=== PATIENT | male | born 1960 | race African-American/Black ===

== ENCOUNTER 2017-06-06 06:26 | Emergency (ER) | payer MEDICARE ==
--- NOTE | 2017-06-06 08:24 | RAD ---
RIGHT HIP 2 VIEWS: Date: 06/06/17 PROVIDED CLINICAL HISTORY: Right hip pain status post fall. FINDINGS: There is no evidence for fracture or other acute osseous abnormality. If there is persistent clinical concern, conservative management and follow-up imaging are advised. IMPRESSION: As above. POS: [facility]
== END 2017-06-06 07:23 | disposition home or self-care (01) ==
LOC: ERS 06:26
DX: S70.01XA Contusion of right hip, initial encounter (principal); I12.0 Hypertensive chronic kidney disease with stage 5 chronic kidney disease or end stage renal disease; N18.6 End stage renal disease; Z99.2 Dependence on renal dialysis; Z79.82 Long term (current) use of aspirin; Z79.899 Other long term (current) drug therapy; W01.0XXA Fall on same level from slipping, tripping and stumbling without subsequent striking against object, initial encounter; Y92.009 Unspecified place in unspecified non-institutional (private) residence as the place of occurrence of the external cause

== ENCOUNTER 2017-08-30 12:56 | Emergency (ER) | payer MEDICARE, OTHER ==
--- NOTE | 2017-08-30 13:45 | RAD ---
FRONTAL RADIOGRAPH CHEST PORTABLE UPRIGHT: Date: 08-30-17 Comparison: 02-14-17 History: Productive cough since Wednesday. FINDINGS: There is no pneumothorax or pleural fluid and no focal consolidation or alveolar edema. Cardiac silho uette is enlarged, a stable finding. There is atherosclerotic calcification in the aortic arch. IMPRESSION: Stable appearance of the chest - no acute findings. POS: [facility]
== END 2017-08-30 15:00 | disposition home or self-care (01) ==
LOC: ERS 12:56
DX: J20.9 Acute bronchitis, unspecified (principal); I12.0 Hypertensive chronic kidney disease with stage 5 chronic kidney disease or end stage renal disease; N18.6 End stage renal disease; Z99.2 Dependence on renal dialysis; Z79.899 Other long term (current) drug therapy; Z79.82 Long term (current) use of aspirin
CPT/HCPCS: 71045

== ENCOUNTER 2017-10-03 09:04 | Emergency (ER) | payer MEDICARE ==
[2017-10-03 09:44] LABS: Hemoglobin 11.6 g/dL (14.0-18.0); Mean Corpuscular Hemoglobin 30.9 pg (27.0-31.0); Mean Corpuscular Volume 85.9 fL (78.0-98.0); Mean Platelet Volume 9.1 fL (7.4-10.4); Platelet Count 147 thou/uL (130-400); RBC Distribution Width 15.5 % (11.5-14.5); Red Blood Cell (RBC) Count 3.75 mill/uL (4.70-6.10); White Blood Cell (WBC) Count 5.1 thou/uL (4.8-10.8)
--- NOTE | 2017-10-03 09:44 | RAD ---
AP VIEW OF THE CHEST: INDICATION: Dyspnea. COMPARISON: Prior exam dated 08/30/17. FINDINGS: Stable prominent cardiomegaly. Pulmonary vasculature is mildly congested. The lungs are clear. No pleural effusion is evident. No acute osseous abnormality is evident. IMPRESSION: Cardiomegaly with pulmonary vascular congestion is similar to a comparison dated 08/30/17. POS: [facility]
[2017-10-03 10:03] LABS: ALT (SGPT) 9 U/L (8-55); AST (SGOT) 16 U/L (5-34); Albumin 4.2 g/dL (3.5-5.0); Alkaline Phosphatase 38 U/L (40-150); Anion Gap 20 mmol/L (10-20); BUN (Urea Nitrogen) 81 mg/dL (8.4-25.7); Bilirubin, Total 0.6 mg/dL (0.2-1.2); Calc. Creatinine Clearance 0 mL/min (70-130); Carbon Dioxide 28 mmol/L (22-29); Chloride 93 mmol/L (98-107); Estimated GFR-MDRD 5; Globulin 4.4 g/dL (2.4-3.5); Glucose 84 mg/dL (70-105); Potassium 5.8 mmol/L (3.5-5.1); Protein, Total 8.6 g/dL (6.0-8.3); Sodium 135 mmol/L (136-145)
[2017-10-03 10:07] LABS: CKMB 2.9 ng/mL (0-6.6); Troponin I 0.032 ng/mL (< 0.028)
[2017-10-03 10:09] LABS: #Basophils 0.1 thou/uL (0.0-0.2); #Eosinphils 0.6 thou/uL (0.0-0.7); #Lymphocytes 1.5 thou/uL (1.20-3.40); #Monocytes 0.5 thou/uL (0.11-0.59); #Neutrophils 2.2 thou/uL (1.40-6.50); Anisocytosis SLIGHT = 6-15 cells (100X) (0-5/hpf); Eosinophils 11 % (0-10); Lymphocytes 25 % (21-51); MDiff Complete? YES; Monocytes 9 % (0-10); Neutrophil 52 % (42-75); PLT Morphology Comment Appears Adequate
[2017-10-03] MEDS ORDERED: Furosemide 20 MG/2 ML VIAL ONE (13:06)
== END 2017-10-03 14:04 | disposition home or self-care (01) ==
LOC: ERS 09:04
DX: R06.02 Shortness of breath (principal); I12.0 Hypertensive chronic kidney disease with stage 5 chronic kidney disease or end stage renal disease; N18.6 End stage renal disease; Z99.2 Dependence on renal dialysis; Z79.899 Other long term (current) drug therapy; Z79.82 Long term (current) use of aspirin
CPT/HCPCS: 71045; 80053; 82553; 83880; 84484; 85025; 93005; 96374; J1940

== ENCOUNTER 2017-12-26 13:46 | Emergency (ER) | payer MEDICARE ==
[2017-12-26 15:10] LABS: #Basophils 0.1 thou/uL (0.0-0.2); #Eosinphils 0.9 thou/uL (0.0-0.7); #Lymphocytes 1.6 thou/uL (1.20-3.40); #Monocytes 0.9 thou/uL (0.11-0.59); #Neutrophils 3.3 thou/uL (1.40-6.50); %Basophils 0.9 % (0.0-1.0); %Eosinophils 12.9 % (0.0-10.0); %Lymphocytes 23.5 % (21.0-51.0); %Monocytes 13.9 % (0.0-10.0); %Neutrophils 48.9 % (42.0-75.0); Mean Corpuscular HGB CONC 34.2 g/dL (32.0-36.0); Mean Corpuscular Hemoglobin 30.3 pg (27.0-31.0); Mean Corpuscular Volume 88.5 fL (78.0-98.0); Platelet Count 164 thou/uL (130-400); RBC Distribution Width 16.4 % (11.5-14.5); White Blood Cell (WBC) Count 6.8 thou/uL (4.8-10.8)
[2017-12-26 15:28] LABS: ALT (SGPT) 9 U/L (8-55); AST (SGOT) 10 U/L (5-34); Alkaline Phosphatase 37 U/L (40-150); Anion Gap 19 mmol/L (10-20); BUN (Urea Nitrogen) 59 mg/dL (8.4-25.7); Bilirubin, Total 0.4 mg/dL (0.2-1.2); Calc. Creatinine Clearance 0 mL/min (70-130); Carbon Dioxide 28 mmol/L (22-29); Chloride 95 mmol/L (98-107); Estimated GFR-MDRD 6; Globulin 4.2 g/dL (2.4-3.5); Glucose 91 mg/dL (70-105); Protein, Total 8.2 g/dL (6.0-8.3); Sodium 137 mmol/L (136-145)
[2017-12-26] MEDS ORDERED: Furosemide 40 MG TAB ONE (16:00)
[2017-12-26] MEDS ORDERED: Isosorbide Dinitrate 20 MG TAB PO SCH (16:15)
== END 2017-12-26 16:20 | disposition home or self-care (01) ==
LOC: ERS 13:46
DX: I12.0 Hypertensive chronic kidney disease with stage 5 chronic kidney disease or end stage renal disease (principal); N18.6 End stage renal disease; Z99.2 Dependence on renal dialysis
CPT/HCPCS: 36415; 80053; 83880; 85025; 99284

== ENCOUNTER 2018-04-04 02:35 | Observation (INO) | payer MEDICARE ==
[2018-04-04] MEDS ORDERED: Furosemide 100 MG/10 ML VIAL ONE (02:49)
[2018-04-04] MEDS ORDERED: hydrALAZINE 20 MG/ML VIAL ONE ×2 (02:49→02:50)
[2018-04-04 03:01] LABS: #Basophils 0.1 thou/uL (0.0-0.2); #Eosinphils 0.6 thou/uL (0.0-0.7); #Lymphocytes 1.6 thou/uL (1.20-3.40); #Monocytes 0.8 thou/uL (0.11-0.59); #Neutrophils 2.6 thou/uL (1.40-6.50); %Basophils 2.1 % (0.0-1.0); %Eosinophils 10.5 % (0.0-10.0); %Lymphocytes 27.9 % (21.0-51.0); %Monocytes 14.4 % (0.0-10.0); %Neutrophils 45.1 % (42.0-75.0); Hemoglobin 13.2 g/dL (14.0-18.0); Mean Corpuscular HGB CONC 34.5 g/dL (32.0-36.0); Mean Corpuscular Hemoglobin 29.7 pg (27.0-31.0); Mean Platelet Volume 10.2 fL (7.4-10.4); Platelet Count 146 thou/uL (130-400); RBC Distribution Width 15.5 % (11.5-14.5); Red Blood Cell (RBC) Count 4.43 mill/uL (4.70-6.10); White Blood Cell (WBC) Count 5.7 thou/uL (4.8-10.8)
[2018-04-04 03:24] LABS: ALT (SGPT) 11 U/L (8-55); AST (SGOT) 10 U/L (5-34); Albumin 4.6 g/dL (3.5-5.0); Alkaline Phosphatase 37 U/L (40-150); Anion Gap 24 mmol/L (10-20); BUN (Urea Nitrogen) 74 mg/dL (8.4-25.7); Bilirubin, Total 0.5 mg/dL (0.2-1.2); Calc. Creatinine Clearance 0 mL/min (70-130); Calcium 11.2 mg/dL (7.8-10.44); Carbon Dioxide 26 mmol/L (22-29); Chloride 91 mmol/L (98-107); Estimated GFR-MDRD 5; Globulin 4.7 g/dL (2.4-3.5); Glucose 127 mg/dL (70-105); Potassium 5.1 mmol/L (3.5-5.1); Protein, Total 9.3 g/dL (6.0-8.3); Sodium 136 mmol/L (136-145)
[2018-04-04] MEDS ORDERED: Ondansetron PF 4 MG/2 ML Vial ONE (05:30)
[2018-04-04] MEDS ORDERED: Morphine 4 MG/ML VIAL ONE (05:30)
[2018-04-04] MEDS ORDERED: Acetaminophen 500 MG TAB ONE (05:39)
--- NOTE | 2018-04-04 08:19 | RAD ---
PORTABLE CHEST ONE VIEW: Date: 04-04-18 Time: 2:07 a.m. History: Chest pain. FINDINGS/IMPRESSION: Comparison is made with exam of 10-03-17. The heart is size is enlarged. There is patchy consolidation in the lower lung zones, right greater t hurley left. No pneumothoraces or large effusions are seen. POS: [facility]
[2018-04-04] MEDS ORDERED: Ondansetron PF 4 MG/2 ML Vial IVP PRN (09:07)
[2018-04-04] MEDS ORDERED: Acetaminophen 325 MG TAB PO PRN (09:07)
[2018-04-04] MEDS ORDERED: Ondansetron ODT 4 MG TAB PO PRN (09:07)
--- NOTE | 2018-04-04 09:14 | CON ---
DATE OF CONSULTATION: HISTORY OF PRESENT ILLNESS: Mr. Fitzpatrick is a 57-year-old black male with known history of ESRD from hypertensive nephropathy and admitted for congestive heart failure. Chest x-ray shows increased lung markings. We are now consulted for his maintenance hemodialysis and emergent dialysis. I am currently at the bedside, supervising his dialysis. We are attempting to remove 5 L of fluid with this patient. He was also noted to incidentally have an elevated blood pressure. MEDICATIONS: Include the following; 1. Clonidine 0.3 mg t.i.d. 2. Nitroglycerin 0.4 mg sublingual p.r.n. 3. Minoxidil 2.5 mg q.p.m. 4. Imdur ER 30 mg p.o. b.i.d. 5. Tivicay 50 mg at bedtime. 6. Coreg 3.125 mg p.o. b.i.d. 7. Aspirin 325 mg once a day. 8. Amlodipine 10 mg daily. 9. Epzicom 600 mg q.p.m. PAST MEDICAL HISTORY: 1. ESRD from hypertensive nephropathy. 2. Longstanding hypertension. 3. HIV. 4. Status post CHF, status post C difficile colitis, status post Pneumocystis carinii pneumonia. PAST SURGICAL HISTORY: Status post cardiac cath, status post cuffed hemodialysis catheter placement, and status post AV fistula placement. SOCIAL HISTORY: The patient lives in [place] with several children. . No alcohol use. Smoked for several years, half a pack a day, currently minimal smoking. Status post multiple blood transfusion. 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 Education, high school. FAMILY HISTORY: No family history of ESRD. ALLERGIES: DAIRY PRODUCTS, SULFA. TRAUMA: None. IMMUNIZATION: Up-to-date. HOSPITALIZATIONS: Please see past medical history. PHYSICAL EXAMINATION: VITAL SIGNS: Blood pressure is noted at 190/70, heart rate 70. GENERAL: Awake, comfortable, not in overt distress. SKIN: Adequate turgor. HEENT: He has pinkish conjunctivae. Anicteric sclerae. NECK: No neck mass. No carotid bruits. No JVD. CHEST: No deformities. LUNGS: Bibasilar crackles. HEART: Normal sinus rhythm. No murmurs. No gallops. No rubs. ABDOMEN: Globular, soft, nontender. No masses. EXTREMITIES: No edema. No deformities. NEUROLOGICAL: Moving all extremities. No tremors. No asterixis. No ataxia. Oriented to 3 spheres. LABORATORY DATA: Laboratories of April 04, 2018; white count 5.7, hemoglobin 13.2. Sodium 136, potassium 5.1, chloride 91, carbon dioxide 26, BUN 74, creatinine 13.1, glucose 127, calcium 11.2, AST 10, and ALT 11. BNP is 482. Troponin I 0.170. IMAGING DATA: Chest x-ray, increased lung markings. ASSESSMENT AND PLAN: 1. Congestive heart failure - emergent hemodialysis. Attempting maximal fluid removal with dialysis today. 2. End-stage renal disease. We will continue Wednesday, Wednesday, and Wednesday dialysis. Attempting 5 L of fluid removal with dialysis due to the congestive heart failure. 3. Hypertension. Resume back BP medications. 4. Human immunodeficiency virus. Continue anti-retroviral therapy. Overall agree with current management. Job ID: [id number]
[2018-04-04 10:17] LABS: Troponin I 0.244 ng/mL (< 0.028)
[2018-04-04] MEDS ORDERED: Nitroglycerin 0.4 MG TAB (25 Tab Bottle) SL PRN (10:47)
--- NOTE | 2018-04-04 12:29 | HP ---
PRIMARY CARE PHYSICIAN: Pratima Rodriguez MD PRIMARY HOUSEMAN: Jose Alfredo Littlejohn MD CHIEF COMPLAINT: Shortness of breath and fluid overload. HISTORY OF PRESENT ILLNESS: Mr. Fitzpatrick is a pleasant 57-year-old male with past medical history of end-stage renal disease on dialysis, hypertension, HIV positive currently undergoing antiviral treatment with Dr. Cho, coronary artery disease, and chronic CHF, who had presented to [facility] with some complaints of shortness of breath. He states his regular dialysis days are Wednesday, Wednesday, and Wednesday, he had denied any missed dialysis days. He states after the last several weeks, he has noticed more heartburn lately, Dr. Mclaughlin had started him on omeprazole about 4 days ago. He had denied any chest pain; however, did develop some symptoms of shortness of breath and upper extremity edema over the last 2 to 3 days. He states he had his normal 1 on Wednesday, but his symptoms continued to worsen over the weekend. He had denied any fever or chills. Denied any abdominal pain or change in stool. He had complained of some mild nausea this morning; however, this had since resolved. He is currently undergoing dialysis under Dr. Mclaughlin's care. He states he is currently feeling better. His initial workup in the Emergency Department included a chest x-ray, which reveals enlarged heart size and patchy consolidation in the lower lung zones with right greater than left. However, no large effusions or pneumothorax noted. The patient's blood pressure was also noted to be elevated at 180/90, he had no further complaints of chest pain or palpitations. Lab work showed a BUN of 74 and creatinine of 13.15 with estimated GFR of 5. Troponin was also elevated at 0.094, which titrated up to 0.244, he has a history of chronic elevation of troponins. BNP was also elevated at 482.1. Based of the patient's symptoms and his clinical findings, it was determined that he would be admitted under observation for further workup of his symptoms and for continued dialysis. REVIEW OF SYSTEMS: All other systems reviewed are negative unless mentioned in the HPI. PAST MEDICAL HISTORY: Significant for end-stage renal disease on hemodialysis, hypertension, HIV, hyperlipidemia, chronic anemia, coronary artery disease, and chronic congestive heart failure. PAST SURGICAL HISTORY: AV fistula in the right upper extremity. SOCIAL HISTORY: He denies any alcohol, tobacco, or illicit drug use. FAMILY HISTORY: Significant for coronary artery disease and hypertension. ALLERGIES: SULFA. CURRENT HOME MEDICATIONS: 1. Clonidine 0.3 mg t.i.d. 2. Nitroglycerin 0.4 mg sublingual p.r.n. chest pain. 3. Minoxidil 2.5 mg at bedtime. 4. Imdur ER 30 mg p.o. b.i.d. 5. Tivicay 50 mg p.o. at bedtime. 6. Carvedilol 3.125 mg p.o. b.i.d. 7. Aspirin 325 mg once daily. 8. Amlodipine 10 mg oral daily. 9. Epzicom 600 mg q.p.m. PHYSICAL EXAMINATION: VITAL SIGNS: BP 188/90, pulse 90, respirations 22, and temperature 97.8 degrees Fahrenheit. GENERAL: Awake, alert, and oriented x3, in no acute distress noted. HEENT: Pupils are equal, round, and reactive to light. Extraocular muscles intact. Sclerae anicteric. Oropharynx is clear without any erythema or exudates. Uvula is midline. NECK: No adenopathy. No bruit. Nontender. Trachea midline. LUNGS: Basilar rales bilaterally with coarse breath sounds. CARDIOVASCULAR: Positive S1 and S2. Regular rate and rhythm. A 2/6 murmur systolic. ABDOMEN: Obese, soft, nontender, and nondistended. Bowel sounds present. EXTREMITIES: A 1 to 2+ edema noted. Moves all extremities equal. Strength 5+ bilaterally. Fistula noted in right upper extremity. NEUROLOGIC: Cranial nerves 2 through 12 intact. No focal deficits noted. Speech intact. LABORATORY DATA: WBC 5.7, RBC 4.43, hemoglobin 13.2, and platelet 146. Sodium 136, potassium 5.1, carbon dioxide 26, anion gap 24, BUN 74, creatinine 13.15, estimated GFR 5, glucose 127, AST 10, ALT 11, and alkaline phosphatase 37. CK-MB 3.0; troponin 0.094, 0.170, and 0.244; and BNP 482.1. DIAGNOSTIC IMAGING: Chest x-ray showed enlarged heart size, patchy consolidation in lower lung zones, right greater than left. No pneumothoraces or large effusions seen. ASSESSMENT AND PLAN: 1. Acute on chronic congestive heart failure, continue on the patient's home medications, continue with dialysis, obtain echocardiogram to monitor for cardiac status. 2. End-stage renal disease, Dr. Mclaughlin is consulted and continue on dialysis. 3. Elevated troponin, he has chronic elevation of his troponins, this could be likely secondary to his end-stage renal disease and also his chronic heart failure. We will monitor the patient clinically, he remains asymptomatic. Obtain echocardiogram to assess cardiac status. We will also consider consultation for Cardiology Services. 4. Hypertension. Continue on home regimen and add IV hydralazine p.r.n. elevated blood pressure greater than 170. 5. History of human immunodeficiency virus. Continue on home regimen of antiviral, the patient is to follow up with Dr. Cho as outpatient. 6. History of coronary artery disease. Continue on home regimen. 7. Deep vein thrombosis and gastrointestinal prophylaxis. 8. Code status. Full code. DISPOSITION: Pending workup and clinical findings. Job ID: [id number]
[2018-04-04 13:05] VITALS: BMI 27.4
[2018-04-04] MEDS: cloNIDine 0.3 MG TAB PO SCH ×2 (15:28→21:39)
[2018-04-04 15:54] LABS: Anion Gap 17 mmol/L (10-20); BUN (Urea Nitrogen) 29 mg/dL (8.4-25.7); Calc. Creatinine Clearance 13 mL/min (70-130); Carbon Dioxide 30 mmol/L (22-29); Chloride 96 mmol/L (98-107); Estimated GFR-MDRD 9; Glucose 96 mg/dL (70-105); Potassium 4.3 mmol/L (3.5-5.1); Sodium 139 mmol/L (136-145)
--- NOTE | 2018-04-04 16:46 | CON ---
DATE OF CONSULTATION: 04/04/2018 CARDIOLOGY CONSULTATION REASON FOR CONSULTATION: Shortness of breath. HISTORY OF PRESENT ILLNESS: Mr. Fitzpatrick is a pleasant 57-year-old gentleman, who comes to the hospital for shortness of breath. He is on end-stage renal disease and he states he might have drank too much fluids over the weekend more than usual as well as eaten out with a lot more salt more than usual. He did not miss any of his dialysis, but because of the excess fluid, he had to come in for shortness of breath. He has already been dialyzed once and is feeling much better. PAST MEDICAL HISTORY: 1. End-stage renal disease. 2. Hypertension. 3. HIV. 4. Hyperlipidemia. 5. Chronic anemia. 6. Coronary artery disease. 7. Chronic congestive heart failure. PAST SURGICAL HISTORY: 1. Left heart catheterization showing just a moderate lesion on the RCA with a normal FFR. This was back in 2014, so about 2 years ago. 2. History of LV dysfunction, nonischemic, EF at 40% to 45%. 3. AV fistula of right upper extremity. SOCIAL HISTORY: No alcohol, tobacco, or drugs. FAMILY HISTORY: Coronary artery disease and hypertension. ALLERGIES: SULFA. OUTPATIENT MEDICATIONS: 1. Clonidine 0.3 mg t.i.d. 2. Sublingual nitroglycerin p.r.n. 3. Minoxidil. 4. Imdur 30 mg b.i.d. 5. Tivicay 50 mg at bedtime. 6. Carvedilol 3.125 b.i.d. 7. Aspirin 325 a day. 8. Amlodipine 10 mg a day. 9. Epzicom 600 mg q.p.m. REVIEW OF SYSTEMS: A 12-point review of systems was done and was found to be negative unless stated in the history of present illness. PHYSICAL EXAMINATION: VITAL SIGNS: Temperature 98.2, pulse 99, respiratory rate 20, saturation 92% on room air, and blood pressure 160/71. GENERAL: Awake, alert, and oriented x3. No distress. HEENT: Normocephalic and atraumatic. NECK: Supple. LUNGS: Mild crackles at bases. CARDIOVASCULAR: S1, S2. No S3 or S4. No murmurs. ABDOMEN: Soft. Positive bowel sounds. EXTREMITIES: A 1+ edema. SKIN: Warm and dry. LABORATORY DATA: Laboratory work was reviewed. CBC and chemistries were reviewed. His glucose is 127 and calcium is 11.2. Troponin is 0.09, 0.17, and 0.24, consistent with his history of end-stage renal disease. BNP was 481. ASSESSMENT: 1. Nonischemic cardiomyopathy. 2. Acute on chronic systolic heart failure. 3. Volume overload, likely from dietary indiscretions. 4. End-stage renal disease. 5. Moderate coronary artery disease with nonischemic cardiomyopathy. PLAN: 1. Agree with continued hemodialysis to try to dry him up a little bit more. He is still having crackles in the bases already. He feels much better already. 2. Continue blood pressure control. 3. Continue heart failure medications. 4. We will repeat echocardiogram. 5. We will follow. Job ID: [id number]
[2018-04-04] MEDS ORDERED: Non-Formulary Item 1 EACH (Dolutegravir Sodium [Tivicay] 50 MG) PO SCH (21:00)
[2018-04-04] MEDS ORDERED: ABACAVIR SULFATE PO SCH (21:00)
[2018-04-04] MEDS ORDERED: LAMIVUDINE PO SCH (21:00)
[2018-04-04] MEDS ORDERED: Minoxidil 10 MG TAB PO SCH (21:00)
[2018-04-04 21:15] LABS: Phosphorus 5.3 mg/dL (2.3-4.7)
[2018-04-04] MEDS: Carvedilol 3.125 MG TAB PO SCH (21:39)
[2018-04-04] MEDS: Minoxidil 2.5 MG TAB PO SCH (21:39)
[2018-04-05 05:06] LABS: Anion Gap 18 mmol/L (10-20); BUN (Urea Nitrogen) 45 mg/dL (8.4-25.7); Calc. Creatinine Clearance 10 mL/min (70-130); Calcium 9.3 mg/dL (7.8-10.44); Carbon Dioxide 27 mmol/L (22-29); Chloride 98 mmol/L (98-107); Estimated GFR-MDRD 6; Glucose 125 mg/dL (70-105); Potassium 5.3 mmol/L (3.5-5.1); Sodium 138 mmol/L (136-145)
[2018-04-05 05:43] LABS: Band 1 % (5-11); Eosinophils 15 % (0-10); Hemoglobin 11.9 g/dL (14.0-18.0); Lymphocytes 32 % (21-51); MDiff Complete? YES; Mean Corpuscular HGB CONC 34.2 g/dL (32.0-36.0); Mean Corpuscular Hemoglobin 29.5 pg (27.0-31.0); Mean Corpuscular Volume 86.4 fL (78.0-98.0); Monocytes 12 % (0-10); Neutrophil 40 % (42-75); Platelet Count 127 thou/uL (130-400); Platelet Morphology Comment Appears Decreased; RBC Distribution Width 15.5 % (11.5-14.5); Red Blood Cell (RBC) Count 4.02 mill/uL (4.70-6.10); Target Cells SLIGHT = 2-5 cells (100X) (0-1/hpf); White Blood Cell (WBC) Count 4.1 thou/uL (4.8-10.8)
[2018-04-05] MEDS ORDERED: Amlodipine 5 MG TAB PO SCH (09:00)
[2018-04-05] MEDS: cloNIDine 0.3 MG TAB PO SCH ×3 (09:02→21:58)
[2018-04-05] MEDS: Aspirin 325 MG TAB PO SCH (09:02)
[2018-04-05] MEDS: Amlodipine 10 MG TAB PO SCH (09:03)
[2018-04-05] MEDS: Carvedilol 3.125 MG TAB PO SCH ×2 (09:03→21:57)
--- NOTE | 2018-04-05 14:11 | PDOC.PN ---
- Subjective Encounter Start Date: 04/05/18 Encounter Start Time: 14:08 Patient lying in bed, he reports some improvement today. He tolerated dialysis yesterday without complications. He denies chest pain or shortness of breath. Cr back up to 10 today. He has some dizziness this morning but has since resolved. - Objective Resuscitation Status - Order Detail: 04/04/18 09:07 Resuscitation Status Routine Co-Sign Provider: Resuscitation Status: FULL: Full Resuscitation MAR Reviewed: Yes Vital Signs & Weight: Vital Signs (12 hours) Temp Pulse Resp BP BP Pulse Ox 04/05/18 11:28 98.0 F 76 20 129/59 L 96 04/05/18 09:03 77 04/05/18 09:02 131/65 04/05/18 07:08 97.8 F 77 20 127/60 96 04/05/18 03:34 98.6 F 87 16 122/58 L 96 Weight Weight 191 lb 8 oz I&O: 04/04/18 04/05/18 04/06/18 06:59 06:59 06:59 Intake Total 720 Output Total 4500 Balance -3780 Result Diagrams: 04/05/18 04:22 04/05/18 04:25 Radiology Reviewed by me: Yes EKG Reviewed by me: Yes Phys Exam - Physical Examination Constitutional: NAD HEENT: PERRLA, moist MMs, oral pharynx no lesions Neck: no nodes, no JVD, supple Respiratory: no wheezing, no rales, no rhonchi Cardiovascular: RRR, no significant murmur, no rub Gastrointestinal: soft, non-tender, no distention, positive bowel sounds Musculoskeletal: no edema, pulses present fistula in place with +bruit and thrill noted. Neurological: non-focal, normal sensation, moves all 4 limbs Lymphatic: no nodes Psychiatric: normal affect, A&O x 3 Skin: no rash, normal turgor, cap refill <2 seconds Dx/Plan (1) Abnormal cardiac enzyme level Code(s): R74.8 - ABNORMAL LEVELS OF OTHER SERUM ENZYMES Status: Acute (2) Dyslipidemia Code(s): E78.5 - HYPERLIPIDEMIA, UNSPECIFIED Status: Chronic (3) ESRD (end stage renal disease) on dialysis Code(s): N18.6 - END STAGE RENAL DISEASE; Z99.2 - DEPENDENCE ON RENAL DIALYSIS Status: Chronic Comment: on HD (4) HIV (human immunodeficiency virus infection) Status: Chronic (5) Hypertension Code(s): I10 - ESSENTIAL (PRIMARY) HYPERTENSION Status: Chronic - Plan cont current plan of care * Continue home medications * Cardiology and nephrology services following * Plan for dialysis tomorrow and possible discharge after * Will monitor patient for further dizziness, currently asymptomatic * Recheck BMP in am
--- NOTE | 2018-04-05 16:25 | PDOC.EVN ---
Event Note - Event Note Event Note: with Frandy Funez, agree with management
[2018-04-05] MEDS ORDERED: FERRIC CITRATE PO SCH (17:00)
--- NOTE | 2018-04-05 18:12 | PDOC.CTH ---
Cardiology Progress Note - Subjective No new issues. Will get dialyzed later today. - Objective Vital Signs Temp Pulse Resp BP BP Pulse Ox 04/05/18 16:26 131/65 04/05/18 15:38 97.7 F 82 16 144/67 H 97 04/05/18 11:28 98.0 F 76 20 129/59 L 96 04/05/18 09:03 77 04/05/18 09:02 131/65 04/05/18 07:08 97.8 F 77 20 127/60 96 Weight 191 lb 8 oz 04/04/18 04/05/18 04/06/18 06:59 06:59 06:59 Intake Total 720 Output Total 4500 Balance -3780 - Physical Examination General/Neuro: alert & oriented x3, NAD Neck: no JVD present Lungs: CTA, unlabored respirations Heart: RRR Abdomen: NT/ND Extremities: + edema B (1+) - Telemetry Telemetry Rhythm: NSR - Labs Result Diagrams: 04/05/18 04:22 04/05/18 04:25 Troponin/CKMB CK-MB (CK-2) 3.0 ng/mL (0-6.6) 04/04/18 02:53 Troponin I 0.244 ng/mL (< 0.028) H 04/04/18 09:05 - Assessment/Plan 1. Acute on chronic systolic heart failure 2. Non ischemic CM EF at 40-45% 3. ESRD 4. Dietary indiscretions PLAN: - HD tomorrow - May discharge home after next dialysis. - Follow up in the office in 2 months.
[2018-04-05] MEDS: DOLUTEGRAVIR 50 MG PO SCH (21:56)
[2018-04-05] MEDS: Minoxidil 2.5 MG TAB PO SCH (21:57)
[2018-04-06] MEDS: DOLUTEGRAVIR 50 MG PO SCH (01:38)
[2018-04-06] MEDS: cloNIDine 0.3 MG TAB PO SCH ×2 (08:55→13:24)
[2018-04-06] MEDS: Carvedilol 3.125 MG TAB PO SCH (08:55)
--- NOTE | 2018-04-06 08:55 | PRG ---
DATE OF SERVICE: 04/06/2018 RENAL MEDICINE. SUBJECTIVE: Mr. Fitzpatrick is a 57-year-old black male with ESRD, who was admitted for shortness of breath. He was found to be in volume overload. He received dialysis last Wednesday. I am currently dialyzing him at the bedside. Supervising dialysis was maxing out fluid removal. No other complaints. No chest pain or shortness of breath. OBJECTIVE: VITAL SIGNS: Blood pressure is noted at 144/68, heart rate 73, respiratory rate 16, temperature 97.4, pulse ox 95%. GENERAL: Awake, alert, comfortable, not in distress. SKIN: Adequate turgor. HEENT: He has a pinkish conjunctivae. Anicteric sclerae. No neck mass. No carotid bruits. No JVD. CHEST: No deformities. LUNGS: Clear breath sounds. No wheezing. No crackles. HEART: Normal sinus rhythm. No murmur. No gallops. No rubs. ABDOMEN: Globular, soft, nontender. EXTREMITIES: No edema. No deformities. MEDICATIONS: Medications of April 06, 2018, was reviewed. LABORATORY DATA: Laboratories of April 05, 2018: Sodium 138, potassium 5.3, chloride 98, carbon dioxide 27, BUN 45, creatinine 10.1, glucose 125, calcium 9.3. White count 4.1, hemoglobin 11.9. ASSESSMENT AND PLAN: 1. End-stage renal disease, stable. Continuing Wednesday, Wednesday, Wednesday dialysis, maxing out fluid removal as tolerated. 2. Congestive heart failure, clinically improved. As previously mentioned, maxing out fluid removal with dialysis. 3. Agree with current management. Job ID: [id number]
[2018-04-06] MEDS ORDERED: Amlodipine 10 MG TAB PO SCH (09:00)
[2018-04-06] MEDS: Aspirin 325 MG TAB PO SCH (13:21)
[2018-04-06] MEDS: Amlodipine 10 MG TAB PO SCH (13:21)
[2018-04-06 13:39] VITALS: TEMP 98.2
[2018-04-06 20:12] VITALS: BP 131/65
== END 2018-04-06 15:24 | disposition home or self-care (01) ==
LOC: ERS 02:35 → ERHOLD 03:40 → 2SW 12:41
PROVIDERS: ADMIT Hospitalist; ATTEND Hospitalist
DX: E87.70 Fluid overload, unspecified (principal); I13.2 Hypertensive heart and chronic kidney disease with heart failure and with stage 5 chronic kidney disease, or end stage renal disease; N18.6 End stage renal disease; I50.23 Acute on chronic systolic (congestive) heart failure; Z99.2 Dependence on renal dialysis; I42.0 Dilated cardiomyopathy; I25.10 Atherosclerotic heart disease of native coronary artery without angina pectoris; E78.5 Hyperlipidemia, unspecified; D64.9 Anemia, unspecified; F17.210 Nicotine dependence, cigarettes, uncomplicated; Z21 Asymptomatic human immunodeficiency virus [HIV] infection status; E66.9 Obesity, unspecified; Z68.26 Body mass index [BMI] 26.0-26.9, adult; Z88.2 Allergy status to sulfonamides; Z91.018 Allergy to other foods; Z79.82 Long term (current) use of aspirin; Z79.899 Other long term (current) drug therapy; Z98.890 Other specified postprocedural states
CPT/HCPCS: 71045; 80048 ×2; 80053; 82553; 83880; 84100; 84484 ×2; 85025 ×2; 93306; 96374; 96375; 97139 ×2; 99285; G0378 ×4; 36415; J0360; J1940; J2270; J2405

== ENCOUNTER 2018-04-18 18:12 | Emergency (ER) | payer MEDICARE ==
--- NOTE | 2018-04-18 20:12 | RAD ---
CHEST TWO VIEWS: 04/18/2018 HISTORY: Cough. COMPARISON: 12/03/2015 TECHNIQUE: PA and lateral views of the chest obtained. FINDINGS: Two views of the chest demonstrate, again, cardiomegaly noted. Mild pulmonary vascular congestion is seen. Areas of air space opacity in the right lung base appears to be less prominent than on the pr evious comparison examination. It is certainly less prominent than on the previous comparison exam f rom 04/04/2018. IMPRESSION: 1. Cardiomegaly. 2. Decreased opacity in the right lower lobe. POS: [facility]
== END 2018-04-18 20:50 | disposition home or self-care (01) ==
LOC: ERS 18:12
DX: J18.1 Lobar pneumonia, unspecified organism (principal); I12.0 Hypertensive chronic kidney disease with stage 5 chronic kidney disease or end stage renal disease; N18.6 End stage renal disease; B20 Human immunodeficiency virus [HIV] disease
CPT/HCPCS: 71046; 87804; 94640; J7620

== ENCOUNTER 2018-04-24 20:41 | Inpatient (IN) | payer MEDICARE ==
[2018-04-24] MEDS ORDERED: Ondansetron ODT 8 MG TAB ONE (21:39)
[2018-04-24 21:43] LABS: #Basophils 0.1 thou/uL (0.0-0.2); #Eosinphils 0.4 thou/uL (0.0-0.7); #Lymphocytes 1.9 thou/uL (1.20-3.40); #Monocytes 0.5 thou/uL (0.11-0.59); %Basophils 1.6 % (0.0-1.0); %Eosinophils 7.6 % (0.0-10.0); %Lymphocytes 38.5 % (21.0-51.0); %Monocytes 10.1 % (0.0-10.0); %Neutrophils 42.2 % (42.0-75.0); Hemoglobin 11.2 g/dL (14.0-18.0); Mean Corpuscular Hemoglobin 29.8 pg (27.0-31.0); Mean Corpuscular Volume 84.9 fL (78.0-98.0); Platelet Count 164 thou/uL (130-400); RBC Distribution Width 14.7 % (11.5-14.5); Red Blood Cell (RBC) Count 3.75 mill/uL (4.70-6.10); White Blood Cell (WBC) Count 4.8 thou/uL (4.8-10.8)
[2018-04-24 22:04] LABS: ALT (SGPT) 10 U/L (8-55); AST (SGOT) 16 U/L (5-34); Albumin 4.1 g/dL (3.5-5.0); Alkaline Phosphatase 40 U/L (40-150); Anion Gap 19 mmol/L (10-20); BUN (Urea Nitrogen) 64 mg/dL (8.4-25.7); Bilirubin, Total 0.5 mg/dL (0.2-1.2); Calc. Creatinine Clearance 0 mL/min (70-130); Calcium 10.4 mg/dL (7.8-10.44); Carbon Dioxide 29 mmol/L (22-29); Chloride 91 mmol/L (98-107); Estimated GFR-MDRD 5; Glucose 92 mg/dL (70-105); Potassium 3.9 mmol/L (3.5-5.1); Protein, Total 8.1 g/dL (6.0-8.3); Sodium 135 mmol/L (136-145)
[2018-04-24] MEDS ORDERED: Aspirin Chewable 81 MG TAB ONE (22:27)
[2018-04-24] MEDS ORDERED: Enoxaparin Sodium 60 MG/0.6 ML SYRINGE ONE (22:27)
[2018-04-24] MEDS ORDERED: Nitroglycerin 2% Ointment 1 INCH/1 GM Packet ONE (22:27)
[2018-04-24] MEDS ORDERED: Enoxaparin Sodium 30 MG/0.3 ML SYRINGE ONE (22:27)
[2018-04-24 22:28] LABS: CKMB 3.3 ng/mL (0-6.6)
[2018-04-24] MEDS ORDERED: Metoprolol Tartrate 5 MG/5 ML VIAL ONE (23:06)
--- NOTE | 2018-04-24 23:29 | RAD ---
CHEST ONE VIEW: History: Dyspnea. Comparison: 04-18-18 FINDINGS: Lungs are clear. Heart size is enlarged. No pneumothorax. No acute osseous abnormality. IMPRESSION: Interval resolution right lower lobe airspace opacity. POS: [facility]
[2018-04-25 00:27] LABS: Critical Call Chem Troponin I RESULT DECREASING; Troponin I 0.453 ng/mL (< 0.028)
[2018-04-25 01:24] LABS: Critical Call Chem Troponin I RESULT DECREASING
[2018-04-25 01:42] LABS: CKMB 2.7 ng/mL (0-6.6)
--- NOTE | 2018-04-25 03:27 | HP ---
CHIEF COMPLAINT: Nausea and vomiting for last 2 weeks. HISTORY OF PRESENT ILLNESS: He is a 57-year-old male with a history of hypertension, ESRD on dialysis, and HIV on antiretroviral medication. He presented to the ER with a history of nausea and vomiting for last 3 weeks. He said whenever he eats something, he started vomiting after the food intake. He denies any diarrhea, any chest pain, or any belly pain. He has been on dialysis for so many years. Because of this symptom, he does come to ER. When he came to ER, his vital signs; pulse 99, blood pressure 181/86, temperature 98.1, and respiratory rate 18. In the ER, he started to have elevated troponin with nausea and vomiting, plan to admit him in the hospital for observation. PAST MEDICAL HISTORY: History of hypertension, dialysis, and HIV. MEDICATIONS: Medicine takes at home; 1. Clonidine 0.3 mg t.i.d. 2. Nitroglycerine sublingual. 3. Minoxidil 2.5 b.i.d. 4. Coreg 3.125 b.i.d. 5. Aspirin. 6. Amlodipine. 7. Antiretroviral medications. PERSONAL HISTORY: Denies any smoking, alcohol use, or drug use. FAMILY HISTORY: Noncontributory. REVIEW OF SYSTEMS: CONSTITUTIONAL: Negative for chills and fever. EYES: Negative for photophobia and eye pain. ENT: Negative for rhinorrhea, ear, nose, or throat pain. CARDIOVASCULAR: No chest pain. No short of breath. No palpitations. RESPIRATORY: No cough. No wheezing. No short of breath. GASTROINTESTINAL: No abdominal pain. No constipation. No hematemesis. No melena. GENITOURINARY: He does have nausea and vomiting and food intolerance. MUSCULOSKELETAL: No pain. SKIN: No rash. NEUROLOGICAL: No focal deficit. PHYSICAL EXAMINATION: GENERAL: When I examined him, middle-aged man lying in the bed, not in distress. HEENT: Head is atraumatic and normocephalic. Pupils are round and reactive. Extraocular muscles are intact. Ear, nose and throat, normal. Tongue mucosa moist. NECK: Supple. No JVD. No thyromegaly. CHEST: Normal vesicular breathing. No added sounds. No use of accessory muscle. CVS: S1 and S2 audible. No S3 or S4. Systolic murmur 2/6 in the left sternal border. ABDOMEN: Soft. Bowel sounds are audible. No tenderness in epigastric noted. No distension. No rigidity. No guarding. No tenderness. BACK: Normal. On inspection, normal range of motion. EXTREMITIES: Upper extremities, he has right upper extremity fistula, no edema. NEUROLOGIC: Alert x3. No focal deficits. SKIN: Dry. No rash. LABORATORY DATA: Lab shows WBC 4.8, platelets 164. Sodium 135, potassium 3.9, chloride 91, carbon dioxide 29, anion gap 19, BUN 34, creatinine 13.68. AST 16, ALT 11. Troponin 0.472. Albumin 4.1, globulin 4.0. Lipase 143. DIAGNOSTIC STUDIES: EKG, normal sinus rhythm, nonspecific ST changes, prolonged QT 472 milliseconds. ASSESSMENT AND PLAN: 1. Nausea and vomiting. 2. End-stage renal disease, on dialysis. 3. Human immunodeficiency virus. 4. Elevated troponin. PLAN: Plan to admit in the hospital for observation. Serial troponin. Aspirin , rule out [place]. Serial EKG. For nausea and vomiting with end-stage renal disease, continue IV Protonix 40 mg twice daily, and Nephrology consult for possible dialysis by the morning. 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 HIV, continue antiretroviral medications. Full code. DVT prophylaxis with heparin. Job ID: [id number] [facility]
[2018-04-25] MEDS: HYDROcodone/Acetaminophen 5/325 mg Tablet PO PRN (04:03)
[2018-04-25 05:41] LABS: Hemoglobin 10.9 g/dL (14.0-18.0); Hypochromia SLIGHT = 6-15 cells (100X) (0-5/hpf); Lymphocytes 30 % (21-51); MDiff Complete? YES; Mean Corpuscular HGB CONC 35.2 g/dL (32.0-36.0); Mean Corpuscular Hemoglobin 29.7 pg (27.0-31.0); Mean Corpuscular Volume 84.5 fL (78.0-98.0); Mean Platelet Volume 9.1 fL (7.4-10.4); Monocytes 2 % (0-10); Neutrophil 68 % (42-75); Platelet Count 161 thou/uL (130-400); Platelet Morphology Comment Appears Adequate; RBC Distribution Width 14.6 % (11.5-14.5); Red Blood Cell (RBC) Count 3.65 mill/uL (4.70-6.10); White Blood Cell (WBC) Count 6.1 thou/uL (4.8-10.8)
[2018-04-25 05:45] LABS: Anion Gap 18 mmol/L (10-20); BUN (Urea Nitrogen) 67 mg/dL (8.4-25.7); Calc. Creatinine Clearance 7 mL/min (70-130); Calcium 9.8 mg/dL (7.8-10.44); Carbon Dioxide 26 mmol/L (22-29); Chloride 93 mmol/L (98-107); Estimated GFR-MDRD 4; Glucose 79 mg/dL (70-105); Potassium 3.8 mmol/L (3.5-5.1); Sodium 133 mmol/L (136-145)
[2018-04-25] MEDS: Famotidine/PF 20 mg/2ml Vial SLOW IVP SCH (08:26)
[2018-04-25] MEDS: Heparin 5,000 UNITS/ML VIAL SC SCH ×3 (08:26→20:01)
[2018-04-25] MEDS ORDERED: PROVENTIL INHALER 6.7 G (200 INHALATIONS) INH PRN (10:04)
--- NOTE | 2018-04-25 10:21 | CON ---
DATE OF CONSULTATION: HISTORY OF PRESENT ILLNESS: Mr. Fitzpatrick is a 57-year-old black male with known history of ESRD - on maintenance hemodialysis, HIV, and hypertension, admitted for persistent nausea and vomiting. He also had a labile blood pressure on admission. We are being consulted for his maintenance hemodialysis. The patient is currently undergoing his regular hemodialysis. I am at the bedside supervising his dialysis. REVIEW OF SYSTEMS: Positive for cough with whitish phlegm, occasional nausea and vomiting. No chest pain or shortness of breath. No syncopal episode. No productive cough. No fever or chills. No headache. No diplopia. No gross hematuria. No dysuria. No urinary frequency. Appetite and energy level are fair. No hematochezia. No melena. No hematemesis. MEDICATIONS: 1. Clonidine 0.3 mg p.o. t.i.d. 2. Minoxidil 2.5 mg p.o. b.i.d. 3. Coreg 3.125 mg p.o. b.i.d. 4. Aspirin 81 mg tablet once a day. 5. Amlodipine 10 mg tablet once a day. 6. Anti-retroviral drugs. PAST MEDICAL HISTORY: 1. The patient has known history of longstanding hypertension. 2. ESRD from hypertensive nephropathy, HIV, status post CHF, and status post C. diff colitis. 3. Status post pneumocystis carinii pneumonia. PAST SURGICAL HISTORY: Status post AV fistula placement and status post cuffed hemodialysis catheter placement. SOCIAL HISTORY: The patient lives in [place]. , several children. Smoked for several years, averaging half a pack a day, currently on minimal smoking. Status post multiple blood transfusion. 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 Education, high school. No alcohol use. FAMILY HISTORY: No family history of ESRD. ALLERGIES: DAIRY PRODUCTS AND SULFA. TRAUMA: None. IMMUNIZATION: Up-to-date. HOSPITALIZATIONS: Please see past medical history. PHYSICAL EXAMINATION: VITAL SIGNS: Blood pressure is currently at 144/65, heart rate 90, respiratory rate 20, temperature 98.6, and pulse ox 96%. GENERAL: The patient is noted to be awake, alert, comfortable, not in overt distress. SKIN: Adequate turgor. HEENT: He has a pinkish conjunctivae. Anicteric sclerae. NECK: No neck mass. No carotid bruits. No JVD. CHEST: No deformities. LUNGS: Clear breath sounds. No crackles except for an occasional wheeze. HEART: Normal sinus rhythm. No murmur. No gallops. No rubs. ABDOMEN: Globular, soft, and nontender. No masses. EXTREMITIES: No edema. No deformities. LABORATORY DATA: Laboratories of April 25, 2018; white count 6.1 and hemoglobin 10.9. Sodium 133, potassium 3.8, chloride 93, carbon dioxide 26, BUN 67, creatinine 14.24, glucose 79, and calcium 9.8. April 24, 2018, chest x-ray, lungs are clear. ASSESSMENT AND PLAN: 1. End-stage renal disease, stable. We will continue current Wednesday, Wednesday, and Wednesday hemodialysis regimen. We will do a 4-hour dialysis treatment, fluid removal as tolerated. 2. Occasional wheezing. DuoNeb q.6 and p.r.n. 3. Hypertension. Continue current BP medications. Status post complete heart block - according to the monitor and to Dr. Hester, he had a complete heart block. For that reason, Cardiology consult will be done. I did suggest we decrease the clonidine to half a dose from 0.3 b.i.d. to 0.15 b.i.d. Job ID: [id number]
--- NOTE | 2018-04-25 10:28 | PDOC.PN ---
- Subjective Encounter Start Date: 04/25/18 Encounter Start Time: 09:50 Subjective: no chest pain or palp -: says he is complaint with meds -: takes clonidine 0.3mg tid, coreg 3.125mg bid - Objective Resuscitation Status - Order Detail: 04/24/18 23:39 Resuscitation Status Routine Resuscitation Status: FULL: Full Resuscitation Discussed with: patient HERMILO Reviewed: Yes Vital Signs & Weight: Vital Signs (12 hours) Temp Pulse Resp BP Pulse Ox 04/25/18 07:20 98.6 F 90 20 144/65 H 96 04/25/18 04:05 98.1 F 114 H 17 154/70 H 93 L 04/25/18 00:06 97.9 F 95 18 164/74 H 97 Weight Weight 193 lb 9.6 oz I&O: 04/24/18 04/25/18 04/26/18 06:59 06:59 06:59 Intake Total 0 Output Total 0 Balance 0 Result Diagrams: 04/25/18 04:56 04/25/18 04:56 Phys Exam - Physical Examination HEENT: PERRLA, moist MMs Neck: no JVD, supple Respiratory: no wheezing, no rales Cardiovascular: RRR, no significant murmur Gastrointestinal: soft, non-tender, positive bowel sounds Musculoskeletal: no edema, pulses present Neurological: non-focal, moves all 4 limbs Psychiatric: normal affect, A&O x 3 Dx/Plan (1) Complete heart block Code(s): I44.2 - ATRIOVENTRICULAR BLOCK, COMPLETE Status: Acute Comment: likely med induced (2) Dyslipidemia Code(s): E78.5 - HYPERLIPIDEMIA, UNSPECIFIED Status: Chronic (3) ESRD (end stage renal disease) on dialysis Code(s): N18.6 - END STAGE RENAL DISEASE; Z99.2 - DEPENDENCE ON RENAL DIALYSIS Status: Chronic Comment: on HD (4) HIV (human immunodeficiency virus infection) Status: Chronic Qualifiers: HIV symptom status: asymptomatic Qualified Code(s): Z21 - Asymptomatic human immunodeficiency virus [HIV] infection status (5) Hypertension Code(s): I10 - ESSENTIAL (PRIMARY) HYPERTENSION Status: Chronic Qualifiers: Hypertension type: essential hypertension Qualified Code(s): I10 - Essential (primary) hypertension (6) Volume overload Code(s): E87.70 - FLUID OVERLOAD, UNSPECIFIED Status: Acute - Plan for HD today, d/w -: d/w , likely med induced heart block -: hold coreg, reduce clonidine to prevent rebound -: continue norvasc, minoxidil, [place] and tivicay -: to amb in hallway as tolerated, close monitoring on telemetry * . Review of Systems - Medications/Allergies Allergies/Adverse Reactions: Allergies Allergy/AdvReac Type Severity Reaction Status Date / Time Sulfa (Sulfonamide Allergy rash, nose Verified 04/25/18 00:41 Antibiotics) bleeds Medications: Current Medications Hydrocodone Bitart/Acetaminophen ([place] 5/325) 1 tab PO Q4H PRN PRN Reason: Moderate Pain (4-6) Last Admin: 04/25/18 04:03 Dose: 1 tab Albuterol Sulfate (Proventil Hfa) 2 puff INH Q6H PRN PRN Reason: SOB &/or Wheezing Albuterol/Ipratropium (Duoneb) 3 ml NEB [id number] [facility] Amlodipine Besylate (Norvasc) 10 mg PO DAILY [facility] Aspirin (Aspirin) 325 mg PO DAILY [facility] Clonidine (Catapres) 0.1 mg PO BID [facility] Famotidine (Pepcid) 20 mg SLOW IVP QAM [facility] Last Admin: 04/25/18 08:26 Dose: 20 mg Heparin Sodium (Porcine) (Heparin) 5,000 units SC TID [facility] Last Admin: 04/25/18 08:26 Dose: 5,000 units Minoxidil (Minoxidil) 2.5 mg PO QPM [facility] Non-Formulary Medication (Dolutegravir Sodium [Tivicay]) 50 mg PO HS [facility] Non-Formulary Medication (Ferric Citrate [Auryxia]) 4 tablet PO TID-WM [facility] Ondansetron HCl (Zofran) 4 mg IVP Q6H PRN PRN Reason: Nausea/Vomiting
--- NOTE | 2018-04-25 11:14 | CON ---
DATE OF CONSULTATION: 04/25/2018 REASON FOR CONSULTATION: Positive troponins. HISTORY OF PRESENT ILLNESS: Mr. Bhargav Fitzpatrick is a very pleasant 57-year-old gentleman, who comes to the hospital for nausea and vomiting. He states that he has been vomiting for about the last week. He could not keep anything down. He denies any chest pain, tightness, or pressure. No shortness of breath. He was in the hospital about 2 weeks ago for volume overload. He had dietary indiscretions and given his end-stage renal disease, he went into heart failure despite having had not missed any dialysis days. He was dialyzed, dried up, felt much better and was discharged home at that time. His echocardiogram showed an EF of 50% to 55% with no regional wall motion abnormalities. He did have mild LVH. He comes back today for the above reasons. Currently, he was given a dose of Zofran in the ER and he has been able to hold fluids down. He has been waiting on to see if we are going to do any procedures on him. Currently, he is on dialysis. I am seeing him. He looks quite dry. His blood pressure is maintaining in the 130s over 60s and he feels well, not nauseated at this time. PAST MEDICAL HISTORY: 1. Hypertension. 2. End-stage renal disease, on hemodialysis. 3. HIV. 4. Hyperlipidemia. 5. Chronic anemia. 6. Coronary artery disease, moderate in the past. 7. History of nonischemic cardiomyopathy with an EF of 40% to 45% in the past, normalized on echo just a few weeks ago. PAST SURGICAL HISTORY: 1. Left heart catheterization showing moderate disease in the RCA, normal FFR at that time in 2014. 2. AV fistula in right upper extremity. SOCIAL HISTORY: No alcohol, tobacco, or drugs. FAMILY HISTORY: Early coronary artery disease. ALLERGIES: SULFA DRUGS. OUTPATIENT MEDICATIONS: 1. Levofloxacin. 2. Benzonatate. 3. Imdur b.i.d. 4. Minoxidil 2.5 mg q.p.m. 5. Ferric citrate. 6. Carvedilol 3.125 b.i.d. 7. Aspirin 325 a day. 8. Amlodipine 10 mg a day. 9. Epzicom 600 mg q.p.m. 10. Tivicay 50 mg at bedtime. 11. Sublingual nitroglycerin p.r.n., none used. 12. Clonidine 0.3 mg p.o. t.i.d. 13. Albuterol inhaler 2 puffs q.6 hours p.r.n. ALLERGIES: SULFA DRUGS. REVIEW OF SYSTEMS: A 12-point review of systems was done and was found to be negative unless stated in the history of present illness. PHYSICAL EXAMINATION: VITAL SIGNS: Temperature 98.6, pulse 90, respiratory rate 20, sats 96% on room air, and blood pressure 144/65. GENERAL: Awake, alert, and oriented x3, in no distress. HEENT: Normocephalic and atraumatic. NECK: Supple. LUNGS: Clear. CARDIOVASCULAR: S1 and S2. No S3 or S4. No murmurs. ABDOMEN: Soft. Positive bowel sounds. EXTREMITIES: No edema. SKIN: Warm and dry. LABORATORY DATA: Laboratory work was reviewed. CBC with a white count of 4.8, hemoglobin 11, hematocrit 31, platelet count of 164. Chemistries with sodium 134, potassium 3.9, BUN and creatinine are high. Troponins 0.4, 0.4, and then 0.4. Lipase was 143 and albumin of 4.1. Telemetry was reviewed. He is in sinus rhythm. He has a PVC and then he goes into just a brief episode of complete heart block, escape rhythm at about 30 beats per minute. This was minimally symptomatic. He was awake already at 6:13 a.m. He states he woke up about 4:30 a.m. Chest x-ray was reviewed, unremarkable. ASSESSMENT AND PLAN: 1. Elevated troponins: Likely demand ischemia from his nausea and vomiting. 2. Nausea and vomiting, likely gastrointestinal infection, hopefully will get better in the next few days. 3. Complete heart block, transient: No syncope. We will stop carvedilol. If this continues, we have to stop clonidine. We will monitor. We will do an echocardiogram. No indication for pacemaker use yet. If this continued, he may require one in the future. 4. We will follow. Job ID: [id number]
[2018-04-25] MEDS: Aspirin 325 MG TAB PO SCH (13:32)
[2018-04-25] MEDS: Amlodipine 10 MG TAB PO SCH (13:32)
[2018-04-25] MEDS: FERRIC CITRATE 1 GM PO SCH ×2 (14:06→18:24)
[2018-04-25] MEDS ORDERED: Heparin 10,000 UNITS/ 10 ML VIAL ONE (15:00)
[2018-04-25] MEDS: cloNIDine 0.1 MG TAB PO SCH (20:01)
[2018-04-25] MEDS: Dolutegravir Sodium [Tivicay] 50 MG PO SCH (20:02)
[2018-04-26 07:22] LABS: Troponin I 0.283 ng/mL (< 0.028)
[2018-04-26] MEDS: FERRIC CITRATE 1 GM PO SCH ×3 (09:03→17:25)
[2018-04-26] MEDS: Amlodipine 10 MG TAB PO SCH (09:03)
[2018-04-26] MEDS: cloNIDine 0.1 MG TAB PO SCH ×2 (09:03→20:32)
[2018-04-26] MEDS: Heparin 5,000 UNITS/ML VIAL SC SCH ×3 (09:04→20:32)
[2018-04-26] MEDS: Aspirin 325 MG TAB PO SCH (09:04)
[2018-04-26] MEDS: Famotidine/PF 20 mg/2ml Vial SLOW IVP SCH (09:05)
--- NOTE | 2018-04-26 12:23 | PDOC.PN ---
- Subjective Encounter Start Date: 04/26/18 Encounter Start Time: 08:45 Subjective: says he became lethargic and very tired during shower this am -: took him an hour to recover, felt like he had palpitations, no chest pain -: has cough with clear sputum, no fever - Objective Resuscitation Status - Order Detail: 04/24/18 23:39 Resuscitation Status Routine Resuscitation Status: FULL: Full Resuscitation Discussed with: patient MAR Reviewed: Yes Vital Signs & Weight: Vital Signs (12 hours) Temp Pulse Resp BP BP Pulse Ox 04/26/18 11:40 98.3 F 60 18 150/67 H 96 04/26/18 09:03 98 172/77 H 04/26/18 09:00 97 04/26/18 07:57 98.2 F 98 16 172/77 H 97 04/26/18 06:23 89 16 97 04/26/18 04:07 98.5 F 91 18 136/62 96 04/26/18 01:52 90 18 8 L Weight Admit Weight 193 lb 9.6 oz Weight 182 lb 12.8 oz I&O: 04/25/18 04/26/18 04/27/18 06:59 06:59 06:59 Intake Total 0 990 Output Total 0 4500 Balance 0 -3510 Result Diagrams: 04/25/18 04:56 04/25/18 04:56 Phys Exam - Physical Examination HEENT: PERRLA, moist MMs Neck: no JVD, supple Respiratory: no wheezing, no rales Cardiovascular: RRR, no significant murmur Gastrointestinal: soft, non-tender, positive bowel sounds Musculoskeletal: no edema, pulses present Neurological: non-focal, moves all 4 limbs Psychiatric: normal affect, A&O x 3 Dx/Plan (1) Complete heart block Code(s): I44.2 - ATRIOVENTRICULAR BLOCK, COMPLETE Status: Acute Comment: likely med induced (2) Dyslipidemia Code(s): E78.5 - HYPERLIPIDEMIA, UNSPECIFIED Status: Chronic (3) ESRD (end stage renal disease) on dialysis Code(s): N18.6 - END STAGE RENAL DISEASE; Z99.2 - DEPENDENCE ON RENAL DIALYSIS Status: Chronic Comment: on HD (4) HIV (human immunodeficiency virus infection) Status: Chronic Qualifiers: HIV symptom status: asymptomatic Qualified Code(s): Z21 - Asymptomatic human immunodeficiency virus [HIV] infection status (5) Hypertension Code(s): I10 - ESSENTIAL (PRIMARY) HYPERTENSION Status: Chronic Qualifiers: Hypertension type: essential hypertension Qualified Code(s): I10 - Essential (primary) hypertension (6) Volume overload Code(s): E87.70 - FLUID OVERLOAD, UNSPECIFIED Status: Resolved - Plan had another episode of complete heart block overnight for few seconds -: heart block per cardio opinion, is still on small dose of clonidine to prev -: -ent rebound htn. -: continue asp, norvasc, minoxidil -: dc plan per cardiology adv, ?event monitor * . Review of Systems - Medications/Allergies Allergies/Adverse Reactions: Allergies Allergy/AdvReac Type Severity Reaction Status Date / Time Sulfa (Sulfonamide Allergy rash, nose Verified 04/25/18 00:41 Antibiotics) bleeds Medications: Current Medications Hydrocodone Bitart/Acetaminophen ([place] 5/325) 1 tab PO Q4H PRN PRN Reason: Moderate Pain (4-6) Last Admin: 04/25/18 04:03 Dose: 1 tab Albuterol Sulfate (Proventil Hfa) 2 puff INH Q6H PRN PRN Reason: SOB &/or Wheezing Albuterol/Ipratropium (Duoneb) 3 ml NEB [id number] [facility] Last Admin: 04/26/18 06:23 Dose: 3 ml Amlodipine Besylate (Norvasc) 10 mg PO DAILY [facility] Last Admin: 04/26/18 09:03 Dose: 10 mg Aspirin (Aspirin) 325 mg PO DAILY [facility] Last Admin: 04/26/18 09:04 Dose: 325 mg Clonidine (Catapres) 0.1 mg PO BID [facility] Last Admin: 04/26/18 09:03 Dose: 0.1 mg Famotidine (Pepcid) 20 mg SLOW IVP QAM [facility] Last Admin: 04/26/18 09:05 Dose: 20 mg Heparin Sodium (Porcine) (Heparin) 5,000 units SC TID [facility] Last Admin: 04/26/18 09:04 Dose: 5,000 units Minoxidil (Minoxidil) 2.5 mg PO QPM [facility] Ondansetron HCl (Zofran) 4 mg IVP Q6H PRN PRN Reason: Nausea/Vomiting Dolutegravir Sodium ([Tivicay] 50 Mg) 0 each PO HS [facility] Last Admin: 04/25/18 20:02 Dose: 1 each (Ferric Citrate [ (Auryxia] 1g Tablet)) 0 each PO TID-WM [facility] Last Admin: 04/26/18 11:58 Dose: 1 each
[2018-04-26] MEDS: Dolutegravir Sodium [Tivicay] 50 MG PO SCH (20:33)
[2018-04-26] MEDS: Minoxidil 2.5 MG TAB PO SCH (20:33)
[2018-04-27] MEDS: Famotidine/PF 20 mg/2ml Vial SLOW IVP SCH (08:07)
[2018-04-27] MEDS: Heparin 5,000 UNITS/ML VIAL SC SCH ×3 (08:07→21:04)
[2018-04-27] MEDS: Amlodipine 10 MG TAB PO SCH (08:07)
[2018-04-27] MEDS: FERRIC CITRATE 1 GM PO SCH ×3 (08:07→16:23)
[2018-04-27] MEDS: cloNIDine 0.1 MG TAB PO SCH (08:07)
--- NOTE | 2018-04-27 08:52 | PRG ---
DATE OF SERVICE: 04/27/2018 SERVICE: Renal Medicine. SUBJECTIVE: Mr. Fitzpatrick is a 57-year-old black male with ESRD, on maintenance hemodialysis. He was admitted due to positive troponin as well as bradycardia. He has been elevated by Cardiology. With a complete heart block, the plan is to stop the carvedilol. There was no indication for any pacemaker at the present time. No new complaints today. He is currently undergoing dialysis. I am at the bedside supervising his dialysis. OBJECTIVE: VITAL SIGNS: Blood pressure is 139/65, heart rate 85, respiratory rate 18, temperature 97.9, and pulse ox 98%. GENERAL: Noted to be awake, alert, comfortable, not in distress. SKIN: Adequate turgor. HEENT: He has pinkish conjunctivae. Anicteric sclerae. NECK: No neck mass. No carotid bruits. No JVD. CHEST: No deformities. LUNGS: Clear breath sounds. HEART: Normal sinus rhythm. No murmur. No gallops. No rubs. ABDOMEN: Globular, soft, nontender. No masses. EXTREMITIES: No edema. No deformities. MEDICATIONS: Medications of April 27, 2018, reviewed. LABORATORY DATA: Laboratories of April 25, 2018; white count 6.1, hemoglobin 10.9. Sodium 133, potassium 3.8, chloride 93, carbon dioxide 26, BUN 67, creatinine 14.24, and calcium 9.8. Troponin I 0.283 on April 26. ASSESSMENT AND PLAN: 1. Complete heart block - transient in nature. Continue to observe. No indication for any pacemaker placement. 2. End-stage renal disease, stable, tolerating current hemodialysis regimen. Continue Wednesday, Wednesday, and Wednesday dialysis. Fluid removal only as tolerated. Job ID: [id number]
--- NOTE | 2018-04-27 11:39 | PDOC.PN ---
- Subjective Encounter Start Date: 04/27/18 Encounter Start Time: 10:00 Subjective: is getting HD, feels good -: no sob or palp - Objective Resuscitation Status - Order Detail: 04/24/18 23:39 Resuscitation Status Routine Resuscitation Status: FULL: Full Resuscitation Discussed with: patient HERMILO Reviewed: Yes Vital Signs & Weight: Vital Signs (12 hours) Temp Pulse Resp BP Pulse Ox 04/27/18 08:07 110 H 04/27/18 07:45 98.1 F 87 17 174/87 H 96 04/27/18 06:43 110 H 16 97 04/27/18 04:00 97.9 F 85 18 139/65 98 04/27/18 00:31 92 18 96 Weight Admit Weight 193 lb 9.6 oz Weight 186 lb 8 oz I&O: 04/26/18 04/27/18 04/28/18 06:59 06:59 06:59 Intake Total 990 1385 Output Total 4500 0 Balance -3510 1385 Result Diagrams: 04/25/18 04:56 04/25/18 04:56 Phys Exam - Physical Examination HEENT: PERRLA, moist MMs Neck: no JVD, supple Respiratory: no wheezing, no rales Cardiovascular: RRR, no significant murmur Gastrointestinal: soft, non-tender, positive bowel sounds Musculoskeletal: no edema, pulses present Neurological: non-focal, moves all 4 limbs Psychiatric: normal affect, A&O x 3 Dx/Plan (1) Complete heart block Code(s): I44.2 - ATRIOVENTRICULAR BLOCK, COMPLETE Status: Acute Comment: likely med induced (2) Dyslipidemia Code(s): E78.5 - HYPERLIPIDEMIA, UNSPECIFIED Status: Chronic (3) ESRD (end stage renal disease) on dialysis Code(s): N18.6 - END STAGE RENAL DISEASE; Z99.2 - DEPENDENCE ON RENAL DIALYSIS Status: Chronic Comment: on HD (4) HIV (human immunodeficiency virus infection) Status: Chronic Qualifiers: HIV symptom status: asymptomatic Qualified Code(s): Z21 - Asymptomatic human immunodeficiency virus [HIV] infection status (5) Hypertension Code(s): I10 - ESSENTIAL (PRIMARY) HYPERTENSION Status: Chronic Qualifiers: Hypertension type: essential hypertension Qualified Code(s): I10 - Essential (primary) hypertension (6) Volume overload Code(s): E87.70 - FLUID OVERLOAD, UNSPECIFIED Status: Resolved - Plan dc plan per cardio adv, d/w -: hemostable, ?event monitor if he goes home -: is off coreg, lower dose of clonidine -: norvasc and minoxidil. Htn is stable -: to ambulate as tolerated * . Review of Systems - Medications/Allergies Allergies/Adverse Reactions: Allergies Allergy/AdvReac Type Severity Reaction Status Date / Time Sulfa (Sulfonamide Allergy rash, nose Verified 04/25/18 00:41 Antibiotics) bleeds Medications: Current Medications Hydrocodone Bitart/Acetaminophen ([place] 5/325) 1 tab PO Q4H PRN PRN Reason: Moderate Pain (4-6) Last Admin: 04/25/18 04:03 Dose: 1 tab Albuterol Sulfate (Proventil Hfa) 2 puff INH Q6H PRN PRN Reason: SOB &/or Wheezing Albuterol/Ipratropium (Duoneb) 3 ml NEB [id number] [facility] Last Admin: 04/27/18 06:43 Dose: 3 ml Amlodipine Besylate (Norvasc) 10 mg PO DAILY [facility] Last Admin: 04/27/18 08:07 Dose: Not Given Aspirin (Aspirin) 325 mg PO DAILY [facility] Last Admin: 04/26/18 09:04 Dose: 325 mg Clonidine (Catapres) 0.1 mg PO BID [facility] Last Admin: 04/27/18 08:07 Dose: Not Given Famotidine (Pepcid) 20 mg SLOW IVP QAM [facility] Last Admin: 04/27/18 08:07 Dose: Not Given Heparin Sodium (Porcine) (Heparin) 5,000 units SC TID [facility] Last Admin: 04/27/18 08:07 Dose: Not Given Minoxidil (Minoxidil) 2.5 mg PO QPM [facility] Last Admin: 04/26/18 20:33 Dose: 2.5 mg Ondansetron HCl (Zofran) 4 mg IVP Q6H PRN PRN Reason: Nausea/Vomiting Dolutegravir Sodium ([Tivicay] 50 Mg) 0 each PO HS [facility] Last Admin: 04/26/18 20:33 Dose: 1 each (Ferric Citrate [ (Auryxia] 1g Tablet)) 0 each PO TID-WM [facility] Last Admin: 04/27/18 08:07 Dose: Not Given
[2018-04-27] MEDS: Aspirin 325 MG TAB PO SCH (12:22)
[2018-04-27] MEDS: hydrALAZINE 25 MG TAB PO SCH ×2 (16:21→21:04)
--- NOTE | 2018-04-27 17:23 | PDOC.CTH ---
Cardiology Progress Note - Subjective He had an episode of lightheadedness coming out of a shower. Correlated to an episode of bradycardia on the monitor were HR was down to the 30's. - Objective Vital Signs Temp Pulse Resp BP Pulse Ox 04/27/18 16:21 95 04/27/18 15:25 97.9 F 95 18 165/70 H 98 04/27/18 13:46 90 20 97 04/27/18 12:15 98.6 F 81 17 128/62 98 04/27/18 08:07 110 H 04/27/18 07:45 98.1 F 87 17 174/87 H 96 04/27/18 06:43 110 H 16 97 Admit Weight 193 lb 9.6 oz Weight 186 lb 8 oz 04/26/18 04/27/18 04/28/18 06:59 06:59 06:59 Intake Total 990 1385 640 Output Total 4500 0 3100 Balance -3510 1385 -2460 - Physical Examination General/Neuro: alert & oriented x3, NAD Neck: no JVD present Lungs: CTA, unlabored respirations Heart: RRR Abdomen: NT/ND Extremities: other: (No edema) - Telemetry Telemetry Rhythm: NSR, Lewis - Labs Result Diagrams: 04/25/18 04:56 04/25/18 04:56 Troponin/CKMB CK-MB (CK-2) 2.7 ng/mL (0-6.6) 04/25/18 00:48 Troponin I 0.283 ng/mL (< 0.028) H 04/26/18 06:27 - Assessment/Plan 1. ESRD 2. BRadycardia 3. CHB, transient. 4. Non ischemic CM. 5. Moderate CAD on [facility] 2014 PLAN: - Will stop clonidine and coreg. - Continue to monitor on telemetry. - Will start hydralazine for BP, he was on Clonidine 0.3 TID, will do 50 mg hydralazine TID - If he recurs off these mediations will need a PPM.
[2018-04-27] MEDS: Dolutegravir Sodium [Tivicay] 50 MG PO SCH (21:05)
[2018-04-27] MEDS: Minoxidil 2.5 MG TAB PO SCH (21:05)
[2018-04-28] MEDS: Ondansetron PF 4 MG/2 ML Vial IVP PRN (03:57)
[2018-04-28] MEDS: Famotidine 20 MG TAB PO SCH (08:27)
[2018-04-28] MEDS: Amlodipine 10 MG TAB PO SCH (08:27)
[2018-04-28] MEDS: hydrALAZINE 25 MG TAB PO SCH ×3 (08:27→21:28)
[2018-04-28] MEDS: Heparin 5,000 UNITS/ML VIAL SC SCH ×3 (08:27→21:29)
[2018-04-28] MEDS: Aspirin 325 MG TAB PO SCH (08:27)
[2018-04-28] MEDS: FERRIC CITRATE 1 GM PO SCH ×3 (08:32→17:40)
--- NOTE | 2018-04-28 11:02 | PDOC.PN ---
- Subjective Encounter Start Date: 04/28/18 Encounter Start Time: 09:20 Subjective: no sob or palp - Objective Resuscitation Status - Order Detail: 04/24/18 23:39 Resuscitation Status Routine Resuscitation Status: FULL: Full Resuscitation Discussed with: patient HERMILO Reviewed: Yes Vital Signs & Weight: Vital Signs (12 hours) Temp Pulse Resp BP BP Pulse Ox 04/28/18 08:27 105 H 04/28/18 08:00 99.2 F 88 17 161/74 H 99 04/28/18 06:37 105 H 20 98 04/28/18 03:50 98 F 90 18 157/70 H 95 04/28/18 01:37 96 18 98 Weight Admit Weight 193 lb 9.6 oz Weight 178 lb 9.191 oz I&O: 04/27/18 04/28/18 04/29/18 06:59 06:59 06:59 Intake Total 1385 1040 Output Total 0 6200 Balance 1385 -5160 Result Diagrams: 04/25/18 04:56 04/25/18 04:56 Phys Exam - Physical Examination HEENT: PERRLA, moist MMs Neck: no JVD, supple Respiratory: no wheezing, no rales Cardiovascular: RRR, no significant murmur Gastrointestinal: soft, non-tender, positive bowel sounds Musculoskeletal: no edema, pulses present Neurological: non-focal, moves all 4 limbs Psychiatric: normal affect, A&O x 3 Dx/Plan (1) Complete heart block Code(s): I44.2 - ATRIOVENTRICULAR BLOCK, COMPLETE Status: Acute Comment: likely med induced (2) Dyslipidemia Code(s): E78.5 - HYPERLIPIDEMIA, UNSPECIFIED Status: Chronic (3) ESRD (end stage renal disease) on dialysis Code(s): N18.6 - END STAGE RENAL DISEASE; Z99.2 - DEPENDENCE ON RENAL DIALYSIS Status: Chronic Comment: on HD (4) HIV (human immunodeficiency virus infection) Status: Chronic Qualifiers: HIV symptom status: asymptomatic Qualified Code(s): Z21 - Asymptomatic human immunodeficiency virus [HIV] infection status (5) Hypertension Code(s): I10 - ESSENTIAL (PRIMARY) HYPERTENSION Status: Chronic Qualifiers: Hypertension type: essential hypertension Qualified Code(s): I10 - Essential (primary) hypertension (6) Volume overload Code(s): E87.70 - FLUID OVERLOAD, UNSPECIFIED Status: Resolved - Plan has had rec short episodes of chb -: HD in am, is off clonidine and coreg -: htn is stable, to continue hiv meds as before -: dc plan per cardio adv -: continue hydralazine, minoxidil and norvasc * . Review of Systems - Medications/Allergies Allergies/Adverse Reactions: Allergies Allergy/AdvReac Type Severity Reaction Status Date / Time Sulfa (Sulfonamide Allergy rash, nose Verified 04/25/18 00:41 Antibiotics) bleeds Medications: Current Medications Hydrocodone Bitart/Acetaminophen (Rainier 5/325) 1 tab PO Q4H PRN PRN Reason: Moderate Pain (4-6) Last Admin: 04/25/18 04:03 Dose: 1 tab Albuterol Sulfate (Proventil Hfa) 2 puff INH Q6H PRN PRN Reason: SOB &/or Wheezing Albuterol/Ipratropium (Duoneb) 3 ml NEB [id number] [facility] Last Admin: 04/28/18 06:37 Dose: 3 ml Amlodipine Besylate (Norvasc) 10 mg PO DAILY [facility] Last Admin: 04/28/18 08:27 Dose: 10 mg Aspirin (Aspirin) 325 mg PO DAILY [facility] Last Admin: 04/28/18 08:27 Dose: 325 mg Famotidine (Pepcid) 20 mg PO DAILY [facility] Last Admin: 04/28/18 08:27 Dose: 20 mg Heparin Sodium (Porcine) (Heparin) 5,000 units SC TID [facility] Last Admin: 04/28/18 08:27 Dose: 5,000 units Hydralazine HCl (Apresoline) 50 mg PO TID [facility] Last Admin: 04/28/18 08:27 Dose: 50 mg Minoxidil (Minoxidil) 2.5 mg PO QPM [facility] Last Admin: 04/27/18 21:05 Dose: 2.5 mg Ondansetron HCl (Zofran) 4 mg IVP Q6H PRN PRN Reason: Nausea/Vomiting Last Admin: 04/28/18 03:57 Dose: 4 mg Dolutegravir Sodium ([Tivicay] 50 Mg) 0 each PO HS [facility] Last Admin: 04/27/18 21:05 Dose: 1 each (Ferric Citrate [ (Auryxia] 1g Tablet)) 0 each PO TID-WM [facility] Last Admin: 04/28/18 08:32 Dose: 1 each Abacavir/Lamivudine (600mg) 0 each PO HS [facility]
--- NOTE | 2018-04-28 12:50 | PDOC.CTH ---
Cardiology Progress Note - Subjective The pt seen and examined. No cardiac complaints. Last CHB was on 2251 at 04/27. He was asymptomatic. - Objective Vital Signs Temp Pulse Resp BP BP Pulse Ox 04/28/18 08:27 105 H 04/28/18 08:00 99.2 F 88 17 161/74 H 99 04/28/18 06:37 105 H 20 98 04/28/18 03:50 98 F 90 18 157/70 H 95 04/28/18 01:37 96 18 98 Admit Weight 193 lb 9.6 oz Weight 178 lb 9.191 oz 04/27/18 04/28/18 04/29/18 06:59 06:59 06:59 Intake Total 1385 1040 Output Total 0 6200 Balance 1385 -5160 - Physical Examination General/Neuro: alert & oriented x3 Neck: no JVD present Lungs: CTA Heart: RRR Abdomen: soft Extremities: other: (No edema) - Telemetry Telemetry Rhythm: SR - Labs Result Diagrams: 04/25/18 04:56 04/25/18 04:56 Troponin/CKMB CK-MB (CK-2) 2.7 ng/mL (0-6.6) 04/25/18 00:48 Troponin I 0.283 ng/mL (< 0.028) H 04/26/18 06:27 - Assessment/Plan 1. Complete heart block - Last CHB was at 2251 on 04/27/2018; EP consult 2. HTN - Increase hydralazine to 75mg TID from today. 3. ESRD - managed by computing services director. 4. HIV - MAR reviewed * Echo in 03/2018 with EF 50-55%, mild LVH, mod dilated LA, mild ERA, mild MR, TR, and VT. pt.seen and eval.by me.i agreewith the A/Py theNP.I willask forthe opinion from EP to determine the possible indication for a pacemaker. Review of Systems - Review of Systems Constitutional: reports: no symptoms reported EENTM: reports: no symptoms reported Respiratory: reports: no symptoms reported ABD/GI: reports: no symptoms reported : reports: no symptoms reported Musculoskeletal: reports: no symptoms reported
[2018-04-28 12:51] VITALS: BMI 24.9
[2018-04-28] MEDS: HYDROcodone/Acetaminophen 5/325 mg Tablet PO PRN (19:37)
--- NOTE | 2018-04-28 19:54 | PRG ---
DATE OF SERVICE: 04/28/2018 SUBJECTIVE: A 57-year-old male with end-stage renal disease, on dialysis, admitted due to intractable nausea and vomiting. The patient was also found to have complete heart block, for which he has been evaluated by Cardiology. The patient dialyzes Wednesday, Wednesday, Wednesday with last dialysis yesterday. No new problem. Nausea and vomiting seems to be improving. OBJECTIVE: VITALS: BP 132/68, temperature 99.1, respiratory rate 16, pulse 95. GENERAL: Middle-aged male, in no obvious distress. Afebrile, anicteric. HEENT: Normocephalic, atraumatic. Oral mucosa is moist. CARDIOVASCULAR: Regular rhythm and rate. Normal heart sounds one and two. RESPIRATORY: Good air entry bilaterally with no obvious crackle or rhonchi. ABDOMEN: Full, soft, nontender, nondistended with normal bowel sounds. EXTREMITIES: Right upper arm AV fistula with some aneurysm noted. No obvious edema or erythema noted. NEUROLOGIC: Conscious and alert, oriented x3 with appropriate mental status. Patient is moving all limbs and he is ambulant. LABORATORY DATA: No new labs today. ASSESSMENT: 1. End-stage renal disease, on maintenance hemodialysis Wednesday, Wednesday, Wednesday. We plan on doing hemodialysis tomorrow. 2. Hypertension. Blood pressure control is acceptable. We will continue current antihypertensives. 3. Complete heart block. We would defer to Cardiology and primary team for evaluation and treatment. Job ID: [id number]
[2018-04-28] MEDS ORDERED: LAMIVUDINE PO SCH ×2 (21:00)
[2018-04-28] MEDS ORDERED: ABACAVIR PO SCH ×2 (21:00)
[2018-04-28] MEDS: Minoxidil 2.5 MG TAB PO SCH (21:29)
[2018-04-28] MEDS: Dolutegravir Sodium [Tivicay] 50 MG PO SCH (21:49)
--- NOTE | 2018-04-28 22:49 | CON ---
DATE OF CONSULTATION: 04/28/2018 REFERRING PHYSICIANS: Shree Mccoy M.D. ADDITIONAL REFERRING PHYSICIAN: Peggy Gibbons M.D. HISTORY OF PRESENT ILLNESS: I am seeing Mr. 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 His problems are: Paroxysmal complete AV block associated with sinus bradycardia in the setting of sleep as well as nausea and vomiting. 1. Coreg, on hold now. 2. End-stage renal disease on hemodialysis. 3. History of hypertensive urgency. 4. History of moderate coronary artery disease and nonischemic cardiomyopathy, LVEF 45% in the past. Most recent echo on 04/06/2018, normalized LV function at 50% to 55%, moderate left atrial enlargement. 5. History of chronic anemia. 6. History of HIV. 7. History of hyperlipidemia and hypertension. ALLERGIES: SULFA. MEDICATIONS: At home include: 1. Levofloxacin. 2. Benzonatate. 3. Imdur. 4. Minoxidil. 5. Ferric citrate. 6. Carvedilol 3.125 mg twice daily. 7. Aspirin. 8. Amlodipine. 9. Epzicom. 10. Tivicay. 11. Sublingual nitroglycerin. 12. Clonidine. 13. Albuterol. SUBJECTIVE: Mr. Fitzpatrick was admitted with issues with nausea and vomiting for last 3 weeks. He could not hold the food down. On the other hand, he denies any dizziness or loss of consciousness. He has no specific chest pains, also denied diarrhea, fevers, or chills. He was mildly tachycardiac and hypertensive in the ER and placed on ekg monitor tech and was noted to have episodes of sudden deceleration of his heart rates associated with sinus bradycardia as well as AV block concomitantly. The AV blocks were very short in duration and lowest average heart rates reached to 40s, mostly during sleep hours. He had an episode of the less impressive bradycardia at the 5:00 p.m. as well, although he echoed some nausea and vomiting episodes associated with these. He has mild tachycardia since holding beta blockers with ambulation. Currently he is feeling better. Nausea and vomiting are resolving with continued hemodialysis. He has no PND, orthopnea, lower extremity edema issues, fluid overload currently. No stroke-like symptoms, no neurological deficits, no fever chills, cough. Rest of 12-point system otherwise unremarkable. PAST MEDICAL HISTORY: As above. SOCIAL HISTORY: The patient denies smoking, EtOH, or drug abuse. FAMILY HISTORY: Noncontributory. OBJECTIVE DATA: VITAL SIGNS: Blood pressure is 132/68, heart rate 99, respirations 16, temperature 99.1 degrees Fahrenheit. PHYSICAL EXAMINATION: GENERAL: Alert and oriented man, in no apparent distress. NECK: Supple. Jugular veins slightly distended. CHEST: Coarse, no crackles. HEART: Sounds are regular. No murmur or gallop. PMI is difficult to palpate. ABDOMEN: Benign. Bowel sounds positive. LOWER EXTREMITIES: Without edema, clubbing, or cyanosis. Right upper arm with functioning fistula noted. SKIN: Without rash. NEUROLOGIC: The patient is nonfocal. IMAGING: The initial chest x-ray reveals clear lungs from 04/24/2018. LABORATORY DATA: His white cell count is 6.1, hemoglobin 10.9, platelet count is 161. Sodium 133, potassium 3.8, BUN is 67, creatinine is 14.24. Troponin levels are 0.4, 0.45, 0.4 consecutively, final value is 0.283. EKG is reviewed revealing the baseline sinus rhythm, sinus tachycardia with rates varying between 89 to 105 beats per minute, narrow QRS relatively seen, max duration 114 milliseconds, nonspecific ST-T changes seen. Possible LVH cannot be ruled out. The MN interval is normal at 156 milliseconds. Telemetry strips do reveal normal sinus beats most of the time, but that is episodic deceleration to rates down to 30 and 40 is seen with slowing sinus as well as paroxysms of AV block is noted, but adequate junctional escape is seen. Again this occurs at 6:00 p.m. on the and 5:00 p.m. at which point he was still having significant nausea event. He also has nighttime bradycardia similar to the prior. ASSESSMENT AND PLAN: Mr. Fitzpatrick is a pleasant 57-year-old man with prior history of mild cardiomyopathy, but no normalizing LV left ventricular function, human immunodeficiency virus infection, end-stage renal disease on hemodialysis, hypertension, who presents with nausea, vomiting. He does have borderline troponin changes only. He was noted to have paroxysms of bradycardia in 30s to 40s, which were in the setting of nausea, vomiting, or sleeping. Both episodes reviewed and seem to indicate vagal mechanism based on concomitant slowing of the sinus alisson as well as AV alisson function. There is quick recovery from these and apart from the initiating nausea and vomiting, there is no other symptoms noted by the patient. We discussed the potential mechanism, which I suspect likely is nausea or potentially sleep apnea induced hypervagotonia, he understood this. We also discussed potential treatment options especially, if these episodes become symptomatic, we could consider pacing, but at this point, I think it may not be necessary, now with the resolution of nausea and vomiting, his symptoms are better, he may benefit from outpatient evaluation for sleep apnea. He is mildly hypertensive, the low-dose Coreg is stopped. If mandatory from the blood pressure management standpoint, we could consider restarting Coreg, if necessary. Thank you for allowing me to participate in the care of this patient. Please call if can be further help. Job ID: [id number] MTDD
[2018-04-29] MEDS ORDERED: Docusate 100 MG CAP PO SCH ×2 (01:45→09:00)
[2018-04-29] MEDS: Ondansetron PF 4 MG/2 ML Vial IVP PRN (05:55)
[2018-04-29 06:16] LABS: Anion Gap 18 mmol/L (10-20); BUN (Urea Nitrogen) 54 mg/dL (8.4-25.7); Calc. Creatinine Clearance 8 mL/min (70-130); Calcium 10.2 mg/dL (7.8-10.44); Carbon Dioxide 28 mmol/L (22-29); Chloride 93 mmol/L (98-107); Estimated GFR-MDRD 5; Glucose 86 mg/dL (70-105); Potassium 4.7 mmol/L (3.5-5.1); Sodium 134 mmol/L (136-145)
[2018-04-29 06:47] LABS: #Basophils 0.1 thou/uL (0.0-0.2); #Eosinphils 0.7 thou/uL (0.0-0.7); #Lymphocytes 1.9 thou/uL (1.20-3.40); #Monocytes 0.6 thou/uL (0.11-0.59); #Neutrophils 3.1 thou/uL (1.40-6.50); %Basophils 1.7 % (0.0-1.0); %Eosinophils 10.6 % (0.0-10.0); %Lymphocytes 30.1 % (21.0-51.0); %Monocytes 8.9 % (0.0-10.0); %Neutrophils 48.7 % (42.0-75.0); Mean Corpuscular HGB CONC 33.7 g/dL (32.0-36.0); Mean Platelet Volume 8.9 fL (7.4-10.4); Platelet Count 169 thou/uL (130-400); Platelet Morphology Comment Appears Adequate; RBC Distribution Width 14.8 % (11.5-14.5); RBC Morphology Normal; Red Blood Cell (RBC) Count 4.14 mill/uL (4.70-6.10); White Blood Cell (WBC) Count 6.4 thou/uL (4.8-10.8)
[2018-04-29] MEDS: Heparin 5,000 UNITS/ML VIAL SC SCH ×2 (08:08→15:39)
[2018-04-29] MEDS: Famotidine 20 MG TAB PO SCH (08:08)
[2018-04-29] MEDS: Aspirin 325 MG TAB PO SCH (08:08)
[2018-04-29] MEDS: hydrALAZINE 25 MG TAB PO SCH ×2 (08:09→15:39)
[2018-04-29] MEDS: FERRIC CITRATE 1 GM PO SCH ×3 (08:09→17:24)
[2018-04-29] MEDS: Amlodipine 10 MG TAB PO SCH (08:09)
--- NOTE | 2018-04-29 09:42 | PDOC.CTH ---
Cardiology Progress Note - Subjective The pt seen and examined. No cardiac complaints. Last CHB was at 0430 on 2018. The pt was asymptomatic. - Objective Vital Signs Temp Pulse Resp BP BP Pulse Ox 04/29/18 08:09 105 H 04/29/18 08:00 98.1 F 115 H 17 143/80 H 94 L 04/29/18 04:00 97.8 F 105 H 20 158/76 H 96 04/28/18 23:48 98.5 F 108 H 19 166/77 H 97 Admit Weight 193 lb 9.6 oz Weight 183 lb 04/28/18 04/29/18 04/30/18 06:59 06:59 06:59 Intake Total 1040 600 Output Total 6200 0 Balance -5160 600 - Physical Examination General/Neuro: alert & oriented x3 Neck: no JVD present Lungs: CTA Heart: RRR Abdomen: soft Extremities: other: (No edema) - Telemetry Telemetry Rhythm: SR/ST - Labs Result Diagrams: 04/29/18 05:13 04/29/18 05:13 Troponin/CKMB CK-MB (CK-2) 2.7 ng/mL (0-6.6) 04/25/18 00:48 Troponin I 0.283 ng/mL (< 0.028) H 04/26/18 06:27 - Assessment/Plan 1. Complete heart block - Last CHB was at 0430 on 04/29/2018, most likely 2/2 severe sleep apnea; No PM for now (appreciate EP input); The pt will have sleep study as outpt. Resume Coreg from this AM. 2. HTN - will resume Coreg 3.125mg BID; On hydralazine to 75mg TID. 3. ESRD - managed by personal assistant. 4. HIV - MAR reviewed * Echo in 03/2018 with EF 50-55%, mild LVH, mod dilated LA, mild ERA, mild MR, TR, and ND. * From Cardiac standpoint, the pt is stable d/c home when his VS is stable after receiving Coreg. The pt will f/u with Dr Jarvis's office within 2-4wks. Review of Systems - Review of Systems Constitutional: reports: no symptoms reported EENTM: reports: no symptoms reported Respiratory: reports: no symptoms reported Cardiac (ROS): reports: no symptoms reported ABD/GI: reports: no symptoms reported : reports: no symptoms reported Musculoskeletal: reports: no symptoms reported Skin: reports: no symptoms reported
--- NOTE | 2018-04-29 10:21 | PRG ---
DATE OF SERVICE: 04/29/2018 SUBJECTIVE: A 57-year-old with end-stage renal disease on maintenance dialysis, admitted due to intractable nausea and vomiting associated with severe bradycardia. The patient feels a lot better, and nausea and vomiting have subsided. Discharge home is contemplated. OBJECTIVE: VITAL SIGNS: BP 143/80, pulse 115, respiratory rate 17, SpO2 of 94 on room air. GENERAL: Middle-aged male, in no obvious distress. Afebrile, anicteric. HEENT: Normocephalic and atraumatic. Oral mucosa is moist. CARDIOVASCULAR: Regular rhythm and rate. Tachycardic. Normal heart sounds one and two. RESPIRATORY: Good air entry bilaterally with no obvious crackle or rhonchi. ABDOMEN: Full, soft, nontender, nondistended with normal bowel sounds. EXTREMITIES: Grossly normal looking, atraumatic with no edema. NEUROLOGIC: Conscious and alert, oriented x3 with appropriate mental status. DIAGNOSTIC DATA: BMP showed sodium 134, potassium 4.7, chloride 93, CO2 of 28, BUN 54, creatinine 12.97. CBC showed WBC count of 6.4, hemoglobin of 12.0, and platelet of 169. ASSESSMENT AND PLAN: 1. End-stage renal disease on maintenance hemodialysis Wednesday, Wednesday, and Wednesday. The patient will do hemodialysis today. He can be discharged after that. He will resume outpatient maintenance hemodialysis according to his usual schedule. 2. Hypertension. Blood pressure is currently acceptable. Can continue current antihypertensives. 3. Bradycardia. Thought to be complete heart block by Cardiology. EPS, however, thinks this is vasovagal related to intractable nausea and vomiting. Heart rates currently is elevated at 115, since Coreg was discontinued. The patient may also have tachy-mj syndrome. We would defer treatment to Cardiology and primary team. Job ID: [id number]
[2018-04-29] MEDS ORDERED: Heparin 1,000 UNITS/ML VIAL ONE (11:11)
[2018-04-29 16:02] VITALS: BP 144/83; TEMP 97.2
[2018-04-29] MEDS ORDERED: Carvedilol 3.125 MG TAB PO SCH (17:00)
--- NOTE | 2018-04-29 20:32 | DIS ---
DATE OF ADMISSION: 04/25/2018 DATE OF DISCHARGE: 04/29/2018 PRIMARY CARE PROVIDER: Pratima Rodriguez MD DISCHARGE DIAGNOSES: 1. Complete heart block. 2. End-stage renal disease, on hemodialysis. 3. Nausea and vomiting. 4. Demand ischemia. CONDITION OF PATIENT ON THE DAY OF DISCHARGE: Stable. I assessed Mr. Fitzpatrick on the day of discharge. He denies any chest pain or shortness of breath. Vital signs are stable. S1 and S2 are heard, regular. Lungs are clear to auscultation bilaterally. CONSULTATIONS DURING THIS HOSPITALIZATION: Cardiology, Dr. Jarvis. Electrophysiology, Dr. Schroeder. Nephrology, Dr. Mclaughlin. DISCHARGE MEDICATIONS: 1. Epzicom 600 mg every evening. 2. Norvasc 10 mg daily. 3. Tivicay 50 mg at bedtime. 4. Auryxia 4 tablets 3 times a day. 5. Minoxidil 2.5 mg every evening. 6. Aspirin 325 mg daily. 7. Coreg 3.125 mg 2 times a day. 8. Colace 100 mg 2 times a day. 9. Hydralazine 75 mg 3 times a day. 10. ProAir HFA p.r.n. 11. Benzonatate p.r.n. 12. Nitroglycerin p.r.n. HOSPITAL COURSE: Mr. Fitzpatrick is a pleasant 57-year-old gentleman, who was admitted to [facility] on April 24, 2018, for complete heart block. Please refer to Dr. Mccoy's history and physical note dated April 24, 2018, for further details. The patient was seen by Cardiology and Nephrology Services. His antihypertensives were adjusted. He continued to have brief runs of complete heart block. He was seen by Electrophysiology Service. It was felt that the episodes were related to nausea or potentially sleep apnea induced, hypervagotonia. He has been advised to seek referral for outpatient sleep study through his primary care provider. He is being discharged home in a stable condition. He has been cleared for discharge by both Cardiology and Nephrology Services. He received maintenance hemodialysis during this hospitalization. Many thanks for allowing me to participate in your patient's care. Please feel free to contact me with any questions or concerns. On April 29, he had white count 6400, hemoglobin 12, platelet count 169,000. Sodium 134, potassium 4.7, and creatinine 12.97. Please note that the patient had elevated troponins during this hospitalization, likely demand ischemia from nausea and vomiting. DISCHARGE DESTINATION: Home. TIME SPENT: Total amount of time spent coordinating this discharge: 33 minutes. Job ID: [id number]
== END 2018-04-29 18:30 | disposition home or self-care (01) | DRG 308 ==
LOC: ERS 20:41 → 2SW 04-25 00:12 → OBSVTOIN 04-25 10:03 → 2NO 04-26 13:25
PROVIDERS: ADMIT Family Medicine; ATTEND Family Medicine
PROC: 5A1D70Z Performance of Urinary Filtration, Intermittent, Less than 6 Hours Per Day (ICD-10-PCS; principal; 2018-04-25)
DX: I44.2 Atrioventricular block, complete (principal); N18.6 End stage renal disease; B20 Human immunodeficiency virus [HIV] disease; I12.0 Hypertensive chronic kidney disease with stage 5 chronic kidney disease or end stage renal disease; I24.8 Other forms of acute ischemic heart disease; I42.8 Other cardiomyopathies; G47.30 Sleep apnea, unspecified; R11.2 Nausea with vomiting, unspecified; I25.10 Atherosclerotic heart disease of native coronary artery without angina pectoris; D63.1 Anemia in chronic kidney disease; E78.5 Hyperlipidemia, unspecified; Z99.2 Dependence on renal dialysis; Z79.82 Long term (current) use of aspirin; Z79.899 Other long term (current) drug therapy; Z87.01 Personal history of pneumonia (recurrent); F17.210 Nicotine dependence, cigarettes, uncomplicated; Z88.2 Allergy status to sulfonamides; Z91.011 Allergy to milk products
CPT/HCPCS: 36415; 71045; 71046; 80048; 80053; 82553; 83690; 84484; 85025; 87804; 90935; 93005; 93010; 93306; 94640; 96372; 96374; G0257; J1644; J1650; J2405; J7620; S0028

== ENCOUNTER 2018-09-11 09:07 | Emergency (ER) | payer MEDICARE ==
[2018-09-11 10:07] LABS: #Basophils 0.1 thou/uL (0.0-0.2); #Eosinphils 0.4 thou/uL (0.0-0.7); #Lymphocytes 1.2 thou/uL (1.20-3.40); #Monocytes 0.5 thou/uL (0.11-0.59); #Neutrophils 2.1 thou/uL (1.40-6.50); %Basophils 2.2 % (0.0-1.0); %Eosinophils 9.3 % (0.0-10.0); %Lymphocytes 28.7 % (21.0-51.0); %Neutrophils 48.8 % (42.0-75.0); Hemoglobin 11.8 g/dL (14.0-18.0); Mean Corpuscular HGB CONC 34.5 g/dL (32.0-36.0); Mean Corpuscular Hemoglobin 30.3 pg (27.0-31.0); Mean Corpuscular Volume 87.6 fL (78.0-98.0); Platelet Count 123 thou/uL (130-400); RBC Distribution Width 14.9 % (11.5-14.5); Red Blood Cell (RBC) Count 3.89 mill/uL (4.70-6.10); White Blood Cell (WBC) Count 4.2 thou/uL (4.8-10.8)
[2018-09-11 10:31] LABS: ALT (SGPT) 9 U/L (8-55); AST (SGOT) 7 U/L (5-34); Albumin 4.2 g/dL (3.5-5.0); Alkaline Phosphatase 57 U/L (40-150); Anion Gap 16 mmol/L (10-20); BUN (Urea Nitrogen) 46 mg/dL (8.4-25.7); Bilirubin, Total 0.8 mg/dL (0.2-1.2); Calc. Creatinine Clearance 0 mL/min (70-130); Calcium 8.5 mg/dL (7.8-10.44); Carbon Dioxide 29 mmol/L (22-29); Chloride 93 mmol/L (98-107); Estimated GFR-MDRD 6; Globulin 3.8 g/dL (2.4-3.5); Glucose 105 mg/dL (70-105); Lipase 127 U/L (8-78); Potassium 4.2 mmol/L (3.5-5.1); Sodium 134 mmol/L (136-145)
== END 2018-09-11 12:39 | disposition home or self-care (01) ==
LOC: ERS 09:07
DX: R10.13 Epigastric pain (principal); R11.0 Nausea; I12.0 Hypertensive chronic kidney disease with stage 5 chronic kidney disease or end stage renal disease; N18.6 End stage renal disease; Z99.2 Dependence on renal dialysis; Z79.899 Other long term (current) drug therapy
CPT/HCPCS: 36415; 80053; 83690; 85025; 93005

== ENCOUNTER 2018-09-25 12:27 | Emergency (ER) | payer MEDICARE ==
[2018-09-25 13:16] LABS: #Basophils 0.1 thou/uL (0.0-0.2); #Eosinphils 0.5 thou/uL (0.0-0.7); #Lymphocytes 1.6 thou/uL (1.20-3.40); #Monocytes 0.7 thou/uL (0.11-0.59); #Neutrophils 2.8 thou/uL (1.40-6.50); %Basophils 1.7 % (0.0-1.0); %Eosinophils 8.9 % (0.0-10.0); %Lymphocytes 28.5 % (21.0-51.0); %Monocytes 11.6 % (0.0-10.0); %Neutrophils 49.3 % (42.0-75.0); Hemoglobin 10.9 g/dL (14.0-18.0); Mean Corpuscular HGB CONC 33.7 g/dL (32.0-36.0); Mean Corpuscular Hemoglobin 29.4 pg (27.0-31.0); Mean Corpuscular Volume 87.4 fL (78.0-98.0); Mean Platelet Volume 8.5 fL (7.4-10.4); Platelet Count 188 thou/uL (130-400); RBC Distribution Width 14.8 % (11.5-14.5); Red Blood Cell (RBC) Count 3.72 mill/uL (4.70-6.10); White Blood Cell (WBC) Count 5.8 thou/uL (4.8-10.8)
--- NOTE | 2018-09-25 13:23 | RAD ---
PORTABLE CHEST: Date: 09/25/18 HISTORY: Dyspnea. COMPARISON: 04/24/18. FINDINGS: Heart size is prominent but stable. Lung mccain are clear. Vascular markings within normal range and stable. IMPRESSION: No acute findings. POS: [facility]
[2018-09-25 13:38] LABS: ALT (SGPT) Less than 7 U/L (8-55); AST (SGOT) 7 U/L (5-34); Albumin 4.2 g/dL (3.5-5.0); Alkaline Phosphatase 59 U/L (40-150); Anion Gap 16 mmol/L (10-20); BUN (Urea Nitrogen) 55 mg/dL (8.4-25.7); Bilirubin, Total 0.5 mg/dL (0.2-1.2); Calc. Creatinine Clearance 0 mL/min (70-130); Calcium 8.5 mg/dL (7.8-10.44); Carbon Dioxide 29 mmol/L (22-29); Chloride 95 mmol/L (98-107); Estimated GFR-MDRD 6; Globulin 3.7 g/dL (2.4-3.5); Glucose 83 mg/dL (70-105); Potassium 4.5 mmol/L (3.5-5.1); Protein, Total 7.9 g/dL (6.0-8.3); Sodium 135 mmol/L (136-145)
== END 2018-09-25 14:52 | disposition home or self-care (01) ==
LOC: ERS 12:27
DX: R06.00 Dyspnea, unspecified (principal); I12.0 Hypertensive chronic kidney disease with stage 5 chronic kidney disease or end stage renal disease; N18.6 End stage renal disease; Z99.2 Dependence on renal dialysis; Z79.899 Other long term (current) drug therapy
CPT/HCPCS: 71045; 80053; 82553; 84484; 85025; 93005

== ENCOUNTER 2018-12-14 13:55 | Emergency (ER) | payer MEDICARE ==
[2018-12-14 14:16] LABS: #Basophils 0.1 thou/uL (0.0-0.2); #Eosinphils 1.6 thou/uL (0.0-0.7); #Lymphocytes 1.4 thou/uL (1.20-3.40); #Monocytes 0.7 thou/uL (0.11-0.59); %Basophils 1.2 % (0.0-1.0); %Eosinophils 23.2 % (0.0-10.0); %Lymphocytes 21.2 % (21.0-51.0); %Monocytes 10.4 % (0.0-10.0); Hemoglobin 11.6 g/dL (14.0-18.0); Mean Corpuscular HGB CONC 35.6 g/dL (32.0-36.0); Mean Corpuscular Hemoglobin 30.4 pg (27.0-31.0); Mean Corpuscular Volume 85.3 fL (78.0-98.0); Mean Platelet Volume 9.1 fL (7.4-10.4); Platelet Count 137 thou/uL (130-400); RBC Distribution Width 14.8 % (11.5-14.5); White Blood Cell (WBC) Count 6.7 thou/uL (4.8-10.8)
[2018-12-14 14:42] LABS: ALT (SGPT) 8 U/L (8-55); AST (SGOT) 10 U/L (5-34); Albumin 4.5 g/dL (3.5-5.0); Alkaline Phosphatase 53 U/L (40-110); Anion Gap 17 mmol/L (10-20); BUN (Urea Nitrogen) 21 mg/dL (8.4-25.7); Bilirubin, Total 0.8 mg/dL (0.2-1.2); CK (CPK) 359 U/L (30-200); Calc. Creatinine Clearance 0 mL/min (70-130); Calcium 9.4 mg/dL (7.8-10.44); Carbon Dioxide 27 mmol/L (22-29); Chloride 96 mmol/L (98-107); Estimated GFR-MDRD 12; Globulin 4.3 g/dL (2.4-3.5); Glucose 66 mg/dL (70-105); Potassium 3.9 mmol/L (3.5-5.1); Protein, Total 8.8 g/dL (6.0-8.3); Sodium 136 mmol/L (136-145)
[2018-12-14 15:00] LABS: CKMB 2.8 ng/mL (0-6.6)
--- NOTE | 2018-12-17 14:43 | EKG ---
Test Reason : Blood Pressure : / mmHG Vent. Rate : 090 BPM Atrial Rate : 090 BPM P-R Int : 172 ms QRS Dur : 104 ms QT Int : 384 ms P-R-T Axes : 068 025 085 degrees QTc Int : 469 ms Normal sinus rhythm Possible Left atrial enlargement Low voltage QRS Nonspecific T wave abnormality Prolonged QT Abnormal ECG Confirmed by AMINA ZAVALETA DO ([id number]), slot editor DOUG HINES ([id number] on 12/17/2018 2:42:17 PM Referred By: Confirmed By:AMINA ZAVALETA DO
== END 2018-12-14 16:41 | disposition home or self-care (01) ==
LOC: ERS 13:55
DX: R09.81 Nasal congestion (principal); B20 Human immunodeficiency virus [HIV] disease; I12.0 Hypertensive chronic kidney disease with stage 5 chronic kidney disease or end stage renal disease; N18.6 End stage renal disease; Z79.899 Other long term (current) drug therapy
CPT/HCPCS: 36415; 80053; 82550; 82553; 83880; 84484; 85025; 93005

== ENCOUNTER 2018-12-31 00:52 | Emergency (ER) | payer MEDICARE | END 2018-12-31 01:29 | disposition home or self-care (01) | LOC: ERS 00:52 | DX: J30.9 Allergic rhinitis, unspecified (principal); J01.90 Acute sinusitis, unspecified; I12.0 Hypertensive chronic kidney disease with stage 5 chronic kidney disease or end stage renal disease; N18.6 End stage renal disease; Z99.2 Dependence on renal dialysis; Z79.899 Other long term (current) drug therapy | CPT/HCPCS: 99283 ==

== ENCOUNTER 2019-01-01 21:48 | Emergency (ER) | payer MEDICARE ==
--- NOTE | 2019-01-01 22:42 | RAD ---
EXAM: Single view of the chest HISTORY: Shortness of breath COMPARISON: 09/25/2018 FINDINGS: Single view of the chest shows an enlarged but stable cardiomediastinal silhouette. There i s no evidence of consolidation, mass, or pleural effusion. The bones are unremarkable. IMPRESSION: No evidence of acute cardiopulmonary disease
[2019-01-01 22:50] LABS: #Basophils 0.1 thou/uL (0.0-0.2); #Eosinphils 1.1 thou/uL (0.0-0.7); #Lymphocytes 1.9 thou/uL (1.20-3.40); #Monocytes 1.1 thou/uL (0.11-0.59); #Neutrophils 6.6 thou/uL (1.40-6.50); %Basophils 1.1 % (0.0-1.0); %Eosinophils 9.7 % (0.0-10.0); %Lymphocytes 17.5 % (21.0-51.0); %Monocytes 10.5 % (0.0-10.0); %Neutrophils 61.2 % (42.0-75.0); Hemoglobin 9.4 g/dL (14.0-18.0); Mean Corpuscular HGB CONC 35.9 g/dL (32.0-36.0); Mean Corpuscular Hemoglobin 30.6 pg (27.0-31.0); Mean Corpuscular Volume 85.2 fL (78.0-98.0); Mean Platelet Volume 8.2 fL (7.4-10.4); Platelet Count 156 thou/uL (130-400); RBC Distribution Width 15.5 % (11.5-14.5); Red Blood Cell (RBC) Count 3.08 mill/uL (4.70-6.10); White Blood Cell (WBC) Count 10.8 thou/uL (4.8-10.8)
[2019-01-01 23:15] LABS: ALT (SGPT) 11 U/L (8-55); AST (SGOT) 11 U/L (5-34); Albumin 3.9 g/dL (3.5-5.0); Alkaline Phosphatase 46 U/L (40-110); Anion Gap 20 mmol/L (10-20); BUN (Urea Nitrogen) 73 mg/dL (8.4-25.7); Bilirubin, Total 0.6 mg/dL (0.2-1.2); Calc. Creatinine Clearance 0 mL/min (70-130); Calcium 8.6 mg/dL (7.8-10.44); Carbon Dioxide 23 mmol/L (22-29); Chloride 95 mmol/L (98-107); Estimated GFR-MDRD 5; Globulin 3.7 g/dL (2.4-3.5); Glucose 69 mg/dL (70-105); Potassium 4.3 mmol/L (3.5-5.1); Protein, Total 7.6 g/dL (6.0-8.3); Sodium 134 mmol/L (136-145)
[2019-01-01] MEDS ORDERED: Furosemide 40 MG/4 ML VIAL ONE (23:48)
[2019-01-01] MEDS ORDERED: Furosemide 40 MG TAB ONE (23:53)
== END 2019-01-01 23:58 | disposition home or self-care (01) ==
LOC: ERS 21:48
DX: R06.00 Dyspnea, unspecified (principal); I12.0 Hypertensive chronic kidney disease with stage 5 chronic kidney disease or end stage renal disease; N18.6 End stage renal disease; Z79.899 Other long term (current) drug therapy
CPT/HCPCS: 36415; 71045; 80053; 85025; J1940

== ENCOUNTER 2019-01-09 06:02 | Emergency (ER) | payer MEDICARE ==
[2019-01-09 06:52] LABS: #Basophils 0.1 thou/uL (0.0-0.2); #Eosinphils 1.2 thou/uL (0.0-0.7); #Lymphocytes 1.5 thou/uL (1.20-3.40); #Monocytes 0.6 thou/uL (0.11-0.59); %Basophils 0.9 % (0.0-1.0); %Eosinophils 12.8 % (0.0-10.0); %Lymphocytes 16.1 % (21.0-51.0); %Monocytes 6.8 % (0.0-10.0); %Neutrophils 63.4 % (42.0-75.0); Hemoglobin 9.5 g/dL (14.0-18.0); Mean Corpuscular HGB CONC 34.8 g/dL (32.0-36.0); Mean Corpuscular Hemoglobin 30.1 pg (27.0-31.0); Mean Corpuscular Volume 86.6 fL (78.0-98.0); Mean Platelet Volume 8.1 fL (7.4-10.4); Platelet Count 164 thou/uL (130-400); RBC Distribution Width 15.1 % (11.5-14.5); Red Blood Cell (RBC) Count 3.15 mill/uL (4.70-6.10); White Blood Cell (WBC) Count 9.4 thou/uL (4.8-10.8)
[2019-01-09 07:11] LABS: ALT (SGPT) 12 U/L (8-55); AST (SGOT) 16 U/L (5-34); Albumin 4.2 g/dL (3.5-5.0); Alkaline Phosphatase 44 U/L (40-110); Anion Gap 22 mmol/L (10-20); BUN (Urea Nitrogen) 65 mg/dL (8.4-25.7); Bilirubin, Total 0.6 mg/dL (0.2-1.2); Calc. Creatinine Clearance 0 mL/min (70-130); Carbon Dioxide 22 mmol/L (22-29); Chloride 96 mmol/L (98-107); Estimated GFR-MDRD 5; Globulin 3.7 g/dL (2.4-3.5); Glucose 81 mg/dL (70-105); Potassium 4.9 mmol/L (3.5-5.1); Protein, Total 7.9 g/dL (6.0-8.3); Sodium 135 mmol/L (136-145)
[2019-01-09 07:34] LABS: CKMB 2.1 ng/mL (0-6.6)
--- NOTE | 2019-01-09 07:56 | RAD ---
2 view chest: [01/09/2019] Comparion:04/18/2018 HISTORY: Short of breath for 3 weeks, congestion FINDINGS: Prominence of the cardiac silhouette persists. Stable atherosclerotic calcification of the aortic arch. Postoperative clips overlie the right upper extremity medially. No pneumothorax or pleural fluid. No focal consolidation or alveolar edema. IMPRESSION: No acute findings.
== END 2019-01-09 07:33 | disposition home or self-care (01) ==
LOC: ERS 06:02
DX: R06.02 Shortness of breath (principal); R09.81 Nasal congestion; I12.0 Hypertensive chronic kidney disease with stage 5 chronic kidney disease or end stage renal disease; N18.6 End stage renal disease; B20 Human immunodeficiency virus [HIV] disease; Z79.891 Long term (current) use of opiate analgesic; Z79.899 Other long term (current) drug therapy
CPT/HCPCS: 36415; 71046; 80053; 82553; 83880; 84484; 85025; 87804; 93005; J7620

== ENCOUNTER 2019-05-04 10:59 | Emergency (ER) | payer MEDICARE ==
--- NOTE | 2019-05-04 11:57 | RAD ---
EXAM: Chest 2 views: HISTORY: Cough, dizziness, weakness COMPARISON: 01/09/2019 FINDINGS: Stable increased linear and interstitial markings bilaterally. Heart size:Minimal cardiomegaly. Lungs:Clear of acute process. Atherosclerotic changes of the aorta. No confluent pneumonia, overt edema, pleural effusion, pneumothorax, or other significant acute proce ss. IMPRESSION: Stable exam. Atherosclerosis of the aorta. No acute intrathoracic disease.
== END 2019-05-04 12:22 | disposition home or self-care (01) ==
LOC: ERS 10:59
DX: J20.9 Acute bronchitis, unspecified (principal); B20 Human immunodeficiency virus [HIV] disease; I12.0 Hypertensive chronic kidney disease with stage 5 chronic kidney disease or end stage renal disease; N18.6 End stage renal disease
CPT/HCPCS: 71046

== ENCOUNTER 2019-05-30 14:56 | Emergency (ER) | payer MEDICARE ==
[2019-05-30 15:58] LABS: #Basophils 0.1 thou/uL (0.0-0.2); #Eosinphils 0.5 thou/uL (0.0-0.7); #Lymphocytes 1.4 thou/uL (1.20-3.40); #Monocytes 0.8 thou/uL (0.11-0.59); #Neutrophils 3.1 thou/uL (1.40-6.50); %Basophils 1.4 % (0.0-1.0); %Eosinophils 8.2 % (0.0-10.0); %Lymphocytes 24.2 % (21.0-51.0); %Monocytes 13.3 % (0.0-10.0); Hemoglobin 10.8 g/dL (14.0-18.0); Mean Corpuscular HGB CONC 34.1 g/dL (32.0-36.0); Mean Corpuscular Hemoglobin 29.6 pg (27.0-31.0); Mean Corpuscular Volume 86.9 fL (78.0-98.0); Mean Platelet Volume 9.4 fL (7.4-10.4); Platelet Count 138 thou/uL (130-400); RBC Distribution Width 15.9 % (11.5-14.5); Red Blood Cell (RBC) Count 3.65 mill/uL (4.70-6.10); White Blood Cell (WBC) Count 5.8 thou/uL (4.8-10.8)
--- NOTE | 2019-05-30 16:02 | RAD ---
Chest AP view INDICATION: Shortness of breath and fatigue COMPARISON: None FINDINGS: Lungs: There is persistent subsegmental volume loss within the left midlung. Cardiac silhouette: Moderate cardiomegaly persists Pulmonary vasculature: Moderate pulmonary vascular congestion is present. Pleural spaces: There are small bilateral pleural effusions, left greater than right. Upper abdomen: No abnormality seen. Osseous structures: No acute osseous abnormality. Additional findings: None. IMPRESSION: Findings suspicious for mild CHF.
[2019-05-30 16:13] LABS: ALT (SGPT) 16 U/L (8-55); AST (SGOT) 16 U/L (5-34); Albumin 3.8 g/dL (3.5-5.0); Alkaline Phosphatase 43 U/L (40-110); Anion Gap 17 mmol/L (10-20); BUN (Urea Nitrogen) 44 mg/dL (8.4-25.7); Bilirubin, Total 0.6 mg/dL (0.2-1.2); Calc. Creatinine Clearance 0 mL/min (70-130); Calcium 8.7 mg/dL (7.8-10.44); Carbon Dioxide 27 mmol/L (22-29); Chloride 98 mmol/L (98-107); Estimated GFR-MDRD 8; Globulin 3.7 g/dL (2.4-3.5); Glucose 75 mg/dL (70-105); Potassium 4.5 mmol/L (3.5-5.1); Protein, Total 7.5 g/dL (6.0-8.3); Sodium 137 mmol/L (136-145)
[2019-05-30 16:36] LABS: CKMB 2.5 ng/mL (0-6.6)
== END 2019-05-30 17:04 | disposition home or self-care (01) ==
LOC: ERS 14:56
DX: R53.83 Other fatigue (principal); R06.02 Shortness of breath; B20 Human immunodeficiency virus [HIV] disease; I12.0 Hypertensive chronic kidney disease with stage 5 chronic kidney disease or end stage renal disease; N18.6 End stage renal disease; Z99.2 Dependence on renal dialysis; Z79.899 Other long term (current) drug therapy
CPT/HCPCS: 36415; 71045; 80053; 82553; 84484; 85025; 87804; 93005; J7620

== ENCOUNTER 2019-07-09 07:57 | Emergency (ER) | payer MEDICARE, OTHER ==
[2019-07-09 08:33] LABS: #Basophils 0.1 thou/uL (0.0-0.2); #Eosinphils 0.4 thou/uL (0.0-0.7); #Lymphocytes 1.7 thou/uL (1.20-3.40); #Monocytes 0.6 thou/uL (0.11-0.59); #Neutrophils 3.7 thou/uL (1.40-6.50); %Basophils 1.2 % (0.0-1.0); %Eosinophils 5.9 % (0.0-10.0); %Lymphocytes 26.3 % (21.0-51.0); %Monocytes 9.7 % (0.0-10.0); %Neutrophils 56.9 % (42.0-75.0); Hemoglobin 10.9 g/dL (14.0-18.0); Mean Corpuscular HGB CONC 32.7 g/dL (32.0-36.0); Mean Corpuscular Hemoglobin 28.9 pg (27.0-31.0); Mean Corpuscular Volume 88.3 fL (78.0-98.0); Mean Platelet Volume 9.8 fL (7.4-10.4); Platelet Count 159 thou/uL (130-400); RBC Distribution Width 15.2 % (11.5-14.5); Red Blood Cell (RBC) Count 3.78 mill/uL (4.70-6.10); White Blood Cell (WBC) Count 6.5 thou/uL (4.8-10.8)
[2019-07-09 08:47] LABS: ALT (SGPT) 18 U/L (8-55); AST (SGOT) 13 U/L (5-34); Albumin 3.9 g/dL (3.5-5.0); Alkaline Phosphatase 40 U/L (40-110); Anion Gap 16 mmol/L (10-20); BUN (Urea Nitrogen) 50 mg/dL (8.4-25.7); Bilirubin, Total 0.7 mg/dL (0.2-1.2); Calc. Creatinine Clearance 0 mL/min (70-130); Calcium 9.2 mg/dL (7.8-10.44); Carbon Dioxide 27 mmol/L (22-29); Chloride 98 mmol/L (98-107); Estimated GFR-MDRD 7; Globulin 3.8 g/dL (2.4-3.5); Glucose 90 mg/dL (70-105); Magnesium 2.4 mg/dL (1.6-2.6); Phosphorus 4.5 mg/dL (2.3-4.7); Potassium 5.1 mmol/L (3.5-5.1); Protein, Total 7.7 g/dL (6.0-8.3); Sodium 136 mmol/L (136-145)
[2019-07-09 09:07] LABS: CKMB 3.2 ng/mL (0-6.6)
--- NOTE | 2019-07-09 09:20 | RAD ---
PORTABLE CHEST: COMPARISON: 05/30/2019 study. HISTORY: Dyspnea. Bilateral lower extremity swelling and history of CHF. FINDINGS: Heart size is enlarged. Pulmonary vessels are engorged with increased interstitial lung markings and some minimal blunting to the costophrenic angles. The changes are most suggestive of pulmonary erendira a. IMPRESSION: Cardiomegaly with pulmonary edema change. POS: [facility]
== END 2019-07-09 17:50 | disposition home or self-care (01) ==
LOC: ERS 07:57
DX: J81.0 Acute pulmonary edema (principal); I12.0 Hypertensive chronic kidney disease with stage 5 chronic kidney disease or end stage renal disease; N18.6 End stage renal disease; Z79.899 Other long term (current) drug therapy
CPT/HCPCS: 71045; 80053; 82553; 83735; 83880; 84100; 84484; 85025; 90935; 93005; G0257

== ENCOUNTER 2019-08-29 10:43 | Observation (INO) | payer MEDICARE, OTHER ==
[2019-08-29 11:10] LABS: #Basophils 0.1 thou/uL (0.0-0.2); #Eosinphils 0.5 thou/uL (0.0-0.7); #Monocytes 0.7 thou/uL (0.11-0.59); %Basophils 0.9 % (0.0-1.0); %Eosinophils 5.7 % (0.0-10.0); %Neutrophils 60.4 % (42.0-75.0); Hemoglobin 10.9 g/dL (14.0-18.0); Mean Corpuscular HGB CONC 32.3 g/dL (32.0-36.0); Mean Corpuscular Hemoglobin 28.6 pg (27.0-31.0); Mean Corpuscular Volume 88.7 fL (78.0-98.0); Mean Platelet Volume 9.1 fL (7.4-10.4); Platelet Count 241 thou/uL (130-400); RBC Distribution Width 15.5 % (11.5-14.5); Red Blood Cell (RBC) Count 3.81 mill/uL (4.70-6.10); White Blood Cell (WBC) Count 8.3 thou/uL (4.8-10.8)
--- NOTE | 2019-08-29 11:10 | RAD ---
EXAM: Single view of the chest HISTORY: Difficulty breathing and right lower quadrant pain COMPARISON: 08/06/2019 FINDINGS: Single view of the chest shows an enlarged but stable cardiomediastinal silhouette. Scatter ed multifocal opacities are seen in the lungs which have not significantly changed compared to the prior exam. The bones are unremarkable. IMPRESSION: Stable multifocal infiltrates
[2019-08-29 11:37] LABS: ALT (SGPT) 19 U/L (8-55); AST (SGOT) 17 U/L (5-34); Alkaline Phosphatase 46 U/L (40-110); Anion Gap 18 mmol/L (10-20); BUN (Urea Nitrogen) 39 mg/dL (8.4-25.7); Bilirubin, Total 0.6 mg/dL (0.2-1.2); Calc. Creatinine Clearance 0 mL/min (70-130); Calcium 9.1 mg/dL (7.8-10.44); Carbon Dioxide 26 mmol/L (22-29); Chloride 97 mmol/L (98-107); Estimated GFR-MDRD 9; Globulin 4.5 g/dL (2.4-3.5); Glucose 98 mg/dL (70-105); Lipase 142 U/L (8-78); Potassium 4.6 mmol/L (3.5-5.1); Protein, Total 8.5 g/dL (6.0-8.3); Sodium 136 mmol/L (136-145)
--- NOTE | 2019-08-29 11:40 | CT ---
CT Abdomen Pelvis WO Con: 08/29/2019 10:54 AM HISTORY: Shortness of breath after dialysis COMPARISON: None. TECHNIQUE: Multiple contiguous axial images were obtained and a CT of the abdomen and pelvis without IV contrast . Coronal and sagittal reformats were performed. FINDINGS: This examination is limited for the evaluation of solid organs and vascular structures due to the lac k of intravenous contrast. Lower Chest: Groundglass attenuation is seen scattered throughout the lungs. More confluent airspace opacities are seen in the left lower lobe. Small bilateral pleural effusions. Abdomen: Liver: within normal limits. Bile Ducts: Normal caliber. Gallbladder: No calcified gallstones. Normal caliber wall. Pancreas: within normal limits. Spleen: within normal limits. Adrenals: within normal limits. Kidneys: Small and atrophic. 1.6 cm right renal cyst. Subcentimeter hypodensities in the left kidney may also represent cysts. Pelvis: Reproductive Organs: No pelvic masses. Ureters: within normal limits. Bladder: within normal limits. Bowel: Normal caliber. Normal appendix. Mesenteric Lymph Nodes: No enlarged mesenteric lymph nodes. Peritoneum: No ascites or free air, no fluid collection. Vessels: Atherosclerotic calcifications Retroperitoneum: within normal limits. Abdominal Wall: within normal limits. Bones: Degenerative changes in the spine. IMPRESSION: 1. No evidence of acute intraabdominal or pelvic abnormality. 2. Atrophic kidneys with small renal cysts 3. Bilateral pleural effusions with possible infiltrate in the left lower lobe.
[2019-08-29 11:57] LABS: CKMB 3.1 ng/mL (0-6.6)
[2019-08-29] MEDS ORDERED: Acetaminophen 325 MG TAB PO PRN (17:44)
[2019-08-29] MEDS ORDERED: Nitroglycerin 0.4 MG TAB 1 EACH SL PRN (17:44)
[2019-08-29] MEDS ORDERED: Ondansetron PF 4 MG/2 ML Vial IVP PRN (17:44)
[2019-08-29] MEDS ORDERED: Senokot S 8.6-50 MG TAB PO PRN (17:44)
[2019-08-29] MEDS ORDERED: Acetaminophen 650 MG Suppository PR PRN (17:44)
[2019-08-29] MEDS ORDERED: Guaifenesin DM 100-10/5 ML UDCUP PO PRN (17:44)
[2019-08-29] MEDS ORDERED: Ondansetron ODT 4 MG TAB PO PRN (17:44)
[2019-08-29 17:57] VITALS: BMI 28.3
--- NOTE | 2019-08-29 19:31 | HP ---
PRIMARY CARE PHYSICIAN: Dr. Pratima Rodriguez CHIEF COMPLAINT: Shortness of breath. HISTORY OF PRESENT ILLNESS: This is a 58-year-old male with a history of end-stage renal disease, on dialysis with multiple previous episodes of fluid overload and hypertensive emergency. The patient presented to dialysis yesterday, was noted to be volume overloaded. They did dialysis and rescheduled him again for an extra dialysis session today for further fluid removal. The patient tolerated a little over an hour of dialysis today, but his shortness of breath got acutely worse and so he was brought to the emergency room. In the ER, patient was noted to have an elevated brain natriuretic peptide and persistent infiltration of bilateral pleural effusions that are stable from previous. The patient also reported some right lower to mid quadrant abdominal pain present over the course of today. He had a CT done in the emergency room as well that showed no evidence for acute abnormality, just bilateral effusions. The patient also had indeterminate troponin, however, this was stable from his baseline. He was also noted to be hypertensive, though not severely like previous admissions. He was admitted for observation and further dialysis for his shortness of breath. PAST MEDICAL HISTORY: 1. Hypertension. 2. Hypertensive nephrosclerosis. 3. End-stage renal disease, on hemodialysis. 4. HIV infection. 5. Coronary artery disease. 6. Hyperlipidemia. 7. Chronic anemia. PAST SURGICAL HISTORY: Right arm dialysis shunt. SOCIAL HISTORY: The patient lives alone. He is a former smoker. No alcohol or illicit drug use. FAMILY HISTORY: Significant for hypertension and coronary artery disease. ALLERGIES: 1. SULFA. 2. LACTOSE. CURRENT MEDICATIONS: 1. Amlodipine 10 mg daily. 2. Carvedilol 3.125 mg twice a day. 3. Hydralazine 100 mg 3 times a day. 4. Nitroglycerin as needed. 5. Omeprazole 40 mg daily. 6. Tivicay 50 mg daily. 7. Pifeltro 100 mg daily. 8. Auryxia 210 mg of iron 4 tablets 3 times a day. 9. Minoxidil 2.5 mg daily. REVIEW OF SYSTEMS: CONSTITUTIONAL: No fevers, no chills. EYES: No double vision. No blurred vision. ENT: No congestion, drainage or sore throat. CARDIOVASCULAR: No chest pain. No palpitations or racing heart. PULMONARY: Rare coughing. No wheezing. He has shortness of breath as per HPI. GASTROINTESTINAL: He had abdominal pain this morning. He thought maybe it was from eating food too late last night. It is not severe, does not seem to be changing at all, is not affected by anything. No nausea or vomiting. No diarrhea or constipation. GENITOURINARY: He does not produce significant urine. MUSCULOSKELETAL: No muscle aches or joint pains. SKIN: No rashes or lesions noted. NEUROLOGICAL: No numbness, tingling, or focal weakness. PHYSICAL EXAMINATION: VITAL SIGNS: Blood pressure 162/99, pulse 95, respirations 24, O2 saturation 95% on 2 L nasal cannula, temperature 99.1. GENERAL: This is a well-developed, well-nourished male, in no acute no acute distress. HEENT: Pupils are equal, round, and reactive to light. Oropharynx clear without lesions, erythema, or exudate. NECK: Supple. No lymphadenopathy. No thyroid nodules or enlargement. HEART: Regular rate and rhythm. No murmurs, rubs, or gallops. LUNGS: Clear to auscultation bilaterally. No wheezes, crackles, or rhonchi. ABDOMEN: Soft. Mild tenderness to palpation in the right upper quadrant and right middle abdomen without any guarding or rebound tenderness. Normoactive bowel sounds. No distention. No hepatosplenomegaly or other masses. EXTREMITIES: No clubbing or cyanosis. He does have some bilateral mildly pitting edema which he says is chronic since he was put on dialysis years ago. SKIN: No rashes or lesions noted. NEUROLOGIC: He moves all extremities equally. No facial droop. PSYCHIATRIC: Alert and orient x3. Normal mood and affect. LABORATORY DATA: CBC with a hemoglobin of 10.9, hematocrit of 33.8. The rest of his CBC is normal. Complete metabolic panel is notable for chloride of 97, BUN of 39, creatinine of 7.60, total protein of 8.5, and lipase of 142. The rest is normal. His troponin was indeterminate at 0.070, which is actually a little bit low compared to his recent checks. CK-MB was negative. Brain natriuretic peptide was 2658, which is higher than it has ever been for him before. Chest x-ray: I did review the chest x-ray along with the radiologist's report. It does show some chronic bilateral multifocal infiltrates. CT abdomen and pelvis without contrast showed no evidence for acute intraabdominal or pelvic abnormality. There was some atrophic kidneys and bilateral pleural effusions with possible infiltrate in the left lower lobe. EKG done in the emergency room does show sinus tachycardia at 115 beats per minute without any ectopic beats. No ST-segment changes or T-wave abnormalities. ASSESSMENT: 1. Shortness of breath secondary to volume overload. The patient reports that he has not been compliant with his fluid-restricted diet and is drinking multiple cups of various kinds of fluids throughout the day. We will consult Dr. Mclaughlin for continued dialysis for further fluid removal. 2. Hypertension. We will resume patient's home medications and monitor closely. This should improve with further fluid removal. 3. Human immunodeficiency virus. Resume the patient's home medications. 4. History of coronary artery disease. Resume the patient's home medications. 5. Gastrointestinal prophylaxis. We will put the patient on his daily proton pump inhibitor. 6. Deep venous thrombosis prophylaxis, put the patient on sequential compression devices while in bed. CODE STATUS: The patient is a full code. Should he be incapacitated, he states that his brother would be his medical decision maker. His name is Imer Fitzpatrick. Job ID: [id number]
[2019-08-29] MEDS ORDERED: DORAVIRINE 100 MG PO SCH (21:00)
[2019-08-29] MEDS ORDERED: Dolutegravir Sodium [Tivicay] 50 MG PO SCH (21:00)
[2019-08-29] MEDS: hydrALAZINE 25 MG TAB PO SCH (21:48)
[2019-08-29] MEDS: Carvedilol 3.125 MG TAB PO SCH (21:48)
[2019-08-30 04:14] LABS: #Basophils 0.1 thou/uL (0.0-0.2); #Eosinphils 0.6 thou/uL (0.0-0.7); #Lymphocytes 1.8 thou/uL (1.20-3.40); #Monocytes 0.8 thou/uL (0.11-0.59); %Basophils 1.5 % (0.0-1.0); %Eosinophils 7.9 % (0.0-10.0); %Lymphocytes 24.9 % (21.0-51.0); %Monocytes 11.5 % (0.0-10.0); %Neutrophils 54.3 % (42.0-75.0); Hemoglobin 10.6 g/dL (14.0-18.0); Mean Corpuscular HGB CONC 33.8 g/dL (32.0-36.0); Mean Corpuscular Hemoglobin 29.7 pg (27.0-31.0); Mean Corpuscular Volume 87.9 fL (78.0-98.0); Mean Platelet Volume 8.9 fL (7.4-10.4); Platelet Count 222 thou/uL (130-400); Red Blood Cell (RBC) Count 3.58 mill/uL (4.70-6.10); White Blood Cell (WBC) Count 7.3 thou/uL (4.8-10.8)
[2019-08-30 04:24] LABS: Anion Gap 15 mmol/L (10-20); BUN (Urea Nitrogen) 51 mg/dL (8.4-25.7); Calc. Creatinine Clearance 12 mL/min (70-130); Calcium 8.7 mg/dL (7.8-10.44); Carbon Dioxide 29 mmol/L (22-29); Chloride 96 mmol/L (98-107); Estimated GFR-MDRD 7; Glucose 97 mg/dL (70-105); Potassium 4.8 mmol/L (3.5-5.1); Sodium 135 mmol/L (136-145)
[2019-08-30] MEDS ORDERED: Epoetin (ESRD) 20,000 UNITS/ML SC SCH (08:30)
--- NOTE | 2019-08-30 08:51 | PRG ---
DATE OF SERVICE: 08/30/2019 SUBJECTIVE: Mr. Fitzpatrick is a 58-year-old black male with ESRD-on maintenance hemodialysis and was admitted for shortness of breath secondary to volume overload as well as labile hypertension. While undergoing dialysis yesterday, he developed acute shortness of breath, was sent to the ER. He is now admitted for further management. We are now being consulted for management of his ESRD. I have scheduled him today for his regular dialysis. Please note, his dialysis treatment yesterday was shortened due to complaints of shortness of breath. 1.5 L of fluid was removed. Again, I will be challenging this patient with fluid removal. His shortness of breath is actually improved this morning. He denies any chest pain. REVIEW OF SYSTEMS: Positive for shortness of breath. No chest pain. No syncopal episode. No productive cough. No fever or chills. No dysuria. No urinary frequency. No productive cough. No abdominal pain or occasional joint pains. No diarrhea. No constipation. No headache. No diplopia. MEDICATIONS: 1. Amlodipine 10 mg q.a.m. 2. Carvedilol 3.125 mg p.o. b.i.d. 3. Hydralazine 100 mg p.o. t.i.d. 4. P.r.n. nitroglycerin. 5. Zofran p.r.n. 6. Protonix 40 mg tablet once a day. PAST MEDICAL HISTORY: 1. ESRD from a presumed hypertensive nephropathy. 2. Longstanding hypertension. 3. History of noncompliance. 4. HIV, status post CHF, status post C diff colitis, status post Pneumocystis carinii pneumonia. PAST SURGICAL HISTORY: Status post AV fistula placement, status post cuffed hemodialysis catheter placement. SOCIAL HISTORY: The patient lives in [place]. Lives alone. He is . He has 2 children. 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 Used to smoke one-half pack a day for about 20 years. Currently, no IV drug abuse. No alcohol use. Status post multiple blood transfusion. Education, high school. FAMILY HISTORY: No family history of ESRD. ALLERGIES: DAIRY PRODUCTS AND SULFA. TRAUMA: None. IMMUNIZATIONS: Up-to-date. HOSPITALIZATIONS: Please see past medical history. PHYSICAL EXAMINATION: VITAL SIGNS: Blood pressure is noted at 155/74, heart rate 82, respiratory rate 18, temperature 97.6, and O2 saturation 100%. GENERAL: Awake, alert, sitting comfortable, not in overt distress. SKIN: Adequate turgor. HEENT: Pinkish conjunctivae. Anicteric sclerae. NECK: No neck mass. No carotid bruits. No JVD. CHEST: No deformities. LUNGS: Decreased breath sounds. HEART: Normal sinus rhythm. No murmurs. No gallops. No rubs. ABDOMEN: Globular, soft, and nontender. No masses. EXTREMITIES: No edema. No deformities. NEUROLOGIC: Moving all extremities. No tremors. No asterixis. Oriented to 3 spheres. LABORATORY DATA: Laboratories of August 30, 2019; white count 7.3, hemoglobin 10.6. Sodium 135, potassium 4.8, chloride 96, carbon dioxide 29, BUN 51, creatinine 8.94, glucose 97, and calcium 8.7. BNP is 2650. Troponin I is 0.070. Chest x-ray shows infiltrate suggestive of CHF. ASSESSMENT AND PLAN: 1. Congestive heart failure. We will resume back his regular dialysis with maximal fluid removal as tolerated. 2. End-stage renal disease. Continue current hemodialysis regimen on Wednesday, Wednesday, and Wednesday, treatment time is 4 hours. Again, fluid removal as tolerated. 3. Borderline anemia. Restart Epogen 7500 units subcu q.week. 4. Hyperphosphatemia. Restart Renvela 800 mg three tablets t.i.d. with meals. Agree with current management. Job ID: [id number]
[2019-08-30] MEDS ORDERED: Amlodipine 10 MG TAB PO SCH (09:00)
[2019-08-30] MEDS: hydrALAZINE 25 MG TAB PO SCH ×2 (09:31→14:27)
[2019-08-30] MEDS ORDERED: EPOETIN ALFA-EPBX (ESRD) 4,000 UNIT/ML VIAL SC SCH (12:00)
--- NOTE | 2019-08-30 13:13 | PDOC.HOSPP ---
- Subjective Encounter Date: 08/30/19 Encounter Time: 09:30 Subjective: feels better, is getting HD no chest pain or palp says he has chronic edema in his legs he lives alone and ambulates self - Objective Vital Signs & Weight: Vital Signs (12 hours) Temp Pulse Resp BP Pulse Ox 08/30/19 09:31 82 08/30/19 08:02 97.6 F 82 18 155/74 H 100 08/30/19 07:07 94 L 08/30/19 03:50 97.5 F L 90 20 167/73 H 94 L Weight Weight 200 lb 8 oz I&O: 08/29/19 08/30/19 08/31/19 06:59 06:59 06:59 Intake Total 620 Balance 620 Result Diagrams: 08/30/19 03:49 08/30/19 03:49 Hospitalist ROS - Medication Medications: Active Medications Generic Name Dose Route Start Last Admin Trade Name Freq PRN Reason Stop Dose Admin Carvedilol 3.125 mg 08/29/19 21:00 08/29/19 21:48 Coreg PO 3.125 mg BID LATOYA Administration Hydralazine HCl 100 mg 08/29/19 21:00 08/30/19 09:31 Apresoline PO Not Given TID LATOYA Dolutegravir Sodium 0 each 08/29/19 21:00 08/29/19 23:53 [Tivicay] 50 Mg PO 1 each HS LATOYA Administration Doravirine [Pifeltro 0 each 08/29/19 21:00 08/29/19 23:58 ] 100 Mg PO 1 each HS LATOYA Administration - Exam General Appearance: awake alert Eye: PERRL, anicteric sclera ENT: no oropharyngeal lesions, moist mucosa Neck: supple, JVD Heart: RRR, no murmur Respiratory: no wheezes, no rales Gastrointestinal: soft, non-tender, non-distended, normal bowel sounds Extremities: no cyanosis, 1+ LE edema Neurological: cranial nerve grossly intact, no focal deficits Psychiatric: normal affect, A&O x 3 Hosp A/P (1) Volume overload Code(s): E87.70 - FLUID OVERLOAD, UNSPECIFIED Status: Acute (2) Chronic anemia Code(s): D64.9 - ANEMIA, UNSPECIFIED Status: Acute (3) Dyslipidemia Code(s): E78.5 - HYPERLIPIDEMIA, UNSPECIFIED Status: Chronic (4) ESRD (end stage renal disease) on dialysis Code(s): N18.6 - END STAGE RENAL DISEASE; Z99.2 - DEPENDENCE ON RENAL DIALYSIS Status: Chronic (5) HIV (human immunodeficiency virus infection) Status: Chronic Qualifiers: HIV symptom status: asymptomatic Qualified Code(s): Z21 - Asymptomatic human immunodeficiency virus [HIV] infection status (6) Hypertension Code(s): I10 - ESSENTIAL (PRIMARY) HYPERTENSION Status: Chronic Qualifiers: Hypertension type: essential hypertension Qualified Code(s): I10 - Essential (primary) hypertension (7) Acute exacerbation of CHF (congestive heart failure) Code(s): I50.9 - HEART FAILURE, UNSPECIFIED Status: Acute Qualifiers: Heart failure type: diastolic Qualified Code(s): I50.33 - Acute on chronic diastolic (congestive) heart failure - Plan is getting hemodialysis with max fluid removal may dc home after dialysis if ok with counselled reg fluid restriction and to keep his leg elevated when upright prior ef of 55% in mar 2018 to continue all his home meds including HIV meds as before ambulate in hallway prior to discharge
[2019-08-30] MEDS: Sevelamer Carbonate 800 MG TAB PO SCH ×2 (13:44→17:55)
[2019-08-30] MEDS: Carvedilol 3.125 MG TAB PO SCH (14:14)
[2019-08-30 16:37] VITALS: BP 140/68; TEMP 98.3
[2019-08-30] MEDS: FERRIC CITRATE 210 MG PO SCH ×2 (17:54→17:55)
--- NOTE | 2019-08-30 18:04 | DIS ---
DATE OF ADMISSION: 08/29/2019 DATE OF DISCHARGE: 08/30/2019 DISCHARGE DISPOSITION: Home. PRIMARY DISCHARGE DIAGNOSES: Volume overload, had [id number] dialysis, acute congestive heart failure exacerbation with diastolic dysfunction stage C. SECONDARY DISCHARGE DIAGNOSES: End-stage renal disease, on hemodialysis; dyslipidemia; chronic anemia; human immunodeficiency virus; hypertension. PROCEDURES DONE DURING HOSPITALIZATION: Abdominal and pelvic CAT scan, showed no evidence of acute intraabdominal or pelvic abnormality. Kidneys were atrophic with small renal cysts. Bilateral pleural effusions were seen. Chest x-ray did not reveal any acute changes when compared to prior x-ray of 08/06/2019. Hemoglobin and hematocrit are 10 and 31, platelet count 222, white count of 7, with 54% neutrophils, 24% lymphocytes. BUN 51, creatinine 8.9. BNP 2658. Albumin is 4.0. Lipase 142. DISCHARGE MEDICATIONS: 1. Albuterol inhaler q.6 hourly p.r.n. 2. Norvasc 10 mg p.o. q.a.m. 3. Tivicay 50 mg p.o. at bedtime. 4. Doravirine 100 mg daily. 5. Ferric citrate three times daily. 6. Hydralazine 100 mg three times daily. 7. Minoxidil 10 mg as directed. 8. Aspirin 325 mg daily. 9. Coreg 3.125 mg twice daily. 10. Protonix 40 mg daily. ALLERGIES: SULFA AND LACTOSE. INPATIENT CONSULT: Dr. Mclaughlin for Nephrology. DISCHARGE PLAN: The patient to follow up with Dr. Pratima Rodriguez in 1 week. BRIEF COURSE DURING HOSPITALIZATION: The patient initially came in on the with complaints of shortness of breath. He has known history of end-stage renal disease, on hemodialysis. The patient is noncompliant with fluid intake. He has known history of CHF with diastolic dysfunction as well. The patient has had [id number] hemodialysis done with removal of excess fluid. He still has lower extremity edema and has been advised to raise his leg when he is sitting down. He is hemodynamically stable and has been cleared by Dr. Mclaughlin for discharge. The patient was counseled with regard to medication and dietary compliance and fluid restrictions as well. He is hemodynamically stable and will be shortly discharged home. Please see a [id number] documentation for the day of discharge on [employer]. Job ID: [id number]
== END 2019-08-30 17:14 | disposition home or self-care (01) ==
LOC: ERS 10:43 → 2NO 13:05 → ERS 15:02
PROVIDERS: ADMIT Emergency Medicine; ATTEND Emergency Medicine
DX: E87.70 Fluid overload, unspecified (principal); I13.2 Hypertensive heart and chronic kidney disease with heart failure and with stage 5 chronic kidney disease, or end stage renal disease; N18.6 End stage renal disease; I50.33 Acute on chronic diastolic (congestive) heart failure; D63.1 Anemia in chronic kidney disease; I25.10 Atherosclerotic heart disease of native coronary artery without angina pectoris; N28.1 Cyst of kidney, acquired; J90 Pleural effusion, not elsewhere classified; E83.39 Other disorders of phosphorus metabolism; E78.5 Hyperlipidemia, unspecified; Z21 Asymptomatic human immunodeficiency virus [HIV] infection status; Z87.891 Personal history of nicotine dependence; Z79.82 Long term (current) use of aspirin; Z79.84 Long term (current) use of oral hypoglycemic drugs; Z79.899 Other long term (current) drug therapy; Z88.2 Allergy status to sulfonamides; Z91.011 Allergy to milk products; Z99.2 Dependence on renal dialysis
CPT/HCPCS: 71045; 74176; 80048; 80053; 82553; 83690; 83880; 84484; 85025 ×2; 93005; 99285; Q5105; 36415; 90935; G0257

== ENCOUNTER 2019-11-17 11:38 | Emergency (ER) | payer MEDICARE ==
--- NOTE | 2019-11-17 13:04 | RAD ---
Exam: XR Shoulder Rt 3 View STANDARD HISTORY: Injury to right arm after a fall one day ago. Patient reports right shoulder pain. COMPARISON: 11/19/2015 FINDINGS: Mild osteoarthritis involves the acromioclavicular joint similar to prior study. No acute fracture, dislocation, or other acute osseous abnormality is identified. ISurgical clips are again seen in the right axillary region. IMPRESSION: No acute osseous abnormality is identified.
--- NOTE | 2019-11-17 13:08 | RAD ---
Exam:Right hip 2 view HISTORY: Fall. Pain. COMPARISON: 06/06/2017 FINDINGS: Contour of the femoral head is maintained. No femoral head or femoral neck fracture. Preser marilynn hip joint space. There is bony pelvis is intact. There is atherosclerosis. IMPRESSION: No fracture or dislocation.
--- NOTE | 2019-11-17 13:09 | RAD ---
XR Elbow Rt 4 View STANDARD HISTORY: Fall, right elbow pain FINDINGS: No fracture or dislocation is identified.
--- NOTE | 2019-11-17 13:10 | RAD ---
Exam: XR Wrist 3 Rt View STANDARD HISTORY: Right wrist injury after a fall. COMPARISON: None. FINDINGS: There is mild ulnar minus configuration. A prominent lucency measuring 9 mm is seen within the trique tral bone with associated sclerotic margins. This most likely represents an intraosseous degenerative cyst or possibly large ganglion. No acute fracture, dislocation, or other acute osseous abnormality is identified. Vascular calcifications are seen involving the distal forearm and at the wrist and hand. Surgical cli ps overlie the lateral distal right forearm. IMPRESSION: No acute osseous abnormality is identified. Mild ulnar minus configuration.
== END 2019-11-17 13:22 | disposition home or self-care (01) ==
LOC: ERS 11:38
DX: M25.522 Pain in left elbow (principal); M25.551 Pain in right hip; M25.511 Pain in right shoulder; M25.531 Pain in right wrist; I12.0 Hypertensive chronic kidney disease with stage 5 chronic kidney disease or end stage renal disease; N18.6 End stage renal disease; Z99.2 Dependence on renal dialysis; B20 Human immunodeficiency virus [HIV] disease; Z79.899 Other long term (current) drug therapy; Z79.891 Long term (current) use of opiate analgesic; Z79.82 Long term (current) use of aspirin; W18.30XA Fall on same level, unspecified, initial encounter

== ENCOUNTER 2020-02-08 11:48 | Emergency (ER) | payer MEDICARE ==
[2020-02-08 12:24] LABS: #Basophils 0.1 thou/uL (0.0-0.2); #Eosinphils 0.4 thou/uL (0.0-0.7); #Lymphocytes 1.9 thou/uL (1.20-3.40); #Monocytes 0.7 thou/uL (0.11-0.59); #Neutrophils 4.7 thou/uL (1.40-6.50); %Basophils 1.2 % (0.0-1.0); %Eosinophils 5.6 % (0.0-10.0); %Lymphocytes 24.5 % (21.0-51.0); %Monocytes 8.4 % (0.0-10.0); %Neutrophils 60.2 % (42.0-75.0); Hemoglobin 12.2 g/dL (14.0-18.0); Mean Corpuscular HGB CONC 33.5 g/dL (32.0-36.0); Mean Corpuscular Hemoglobin 29.9 pg (27.0-31.0); Mean Corpuscular Volume 89.3 fL (78.0-98.0); Mean Platelet Volume 8.8 fL (7.4-10.4); Platelet Count 201 thou/uL (130-400); RBC Distribution Width 15.9 % (11.5-14.5); Red Blood Cell (RBC) Count 4.08 mill/uL (4.70-6.10); White Blood Cell (WBC) Count 7.9 thou/uL (4.8-10.8)
[2020-02-08 12:45] LABS: ALT (SGPT) 30 U/L (8-55); AST (SGOT) 25 U/L (5-34); Albumin 3.7 g/dL (3.5-5.0); Alkaline Phosphatase 51 U/L (40-110); Anion Gap 20 mmol/L (10-20); BUN (Urea Nitrogen) 61 mg/dL (8.4-25.7); Bilirubin, Total 0.7 mg/dL (0.2-1.2); CK (CPK) 391 U/L (30-200); Calc. Creatinine Clearance 0 mL/min (70-130); Calcium 9.1 mg/dL (7.8-10.44); Carbon Dioxide 26 mmol/L (22-29); Chloride 97 mmol/L (98-107); Estimated GFR-MDRD 7; Globulin 4.7 g/dL (2.4-3.5); Glucose 82 mg/dL (70-105); Potassium 5.9 mmol/L (3.5-5.1); Protein, Total 8.4 g/dL (6.0-8.3); Sodium 137 mmol/L (136-145)
[2020-02-08 13:07] LABS: CKMB 5.2 ng/mL (0-6.6)
--- NOTE | 2020-02-08 13:13 | RAD ---
PORTABLE CHEST 1 VIEW: DATE: 02/08/2020. TIME: 12:22 PM. HISTORY: Shortness of breath. Dyspnea. COMPARISON: 08/29/2019. FINDINGS/IMPRESSION: The heart is enlarged but stable. The lungs are expanded without lobar consolidation, pneumothoraces , jimbo pulmonary edema, or large pulmonary edema. There is mild prominence of the pulmonary vascula rity. POS: MZA
[2020-02-08 20:20] LABS: Troponin I 0.059 ng/mL (< 0.028)
== END 2020-02-08 22:10 | disposition home or self-care (01) ==
LOC: ERS 11:48
DX: I13.2 Hypertensive heart and chronic kidney disease with heart failure and with stage 5 chronic kidney disease, or end stage renal disease (principal); I50.9 Heart failure, unspecified; N18.6 End stage renal disease; Z99.2 Dependence on renal dialysis; Z21 Asymptomatic human immunodeficiency virus [HIV] infection status; Z79.899 Other long term (current) drug therapy; Z79.82 Long term (current) use of aspirin
CPT/HCPCS: 36415; 71045; 80053; 82550; 82553; 83880; 84484; 85025; 90935; 93005; G0257

== ENCOUNTER 2020-04-29 23:35 | Observation (INO) | payer MEDICARE ==
[2020-04-30 00:34] LABS: #Basophils 0.1 thou/uL (0.0-0.2); #Eosinphils 0.4 thou/uL (0.0-0.7); #Lymphocytes 1.5 thou/uL (1.20-3.40); #Monocytes 0.7 thou/uL (0.11-0.59); #Neutrophils 3.7 thou/uL (1.40-6.50); %Basophils 1.4 % (0.0-1.0); %Eosinophils 5.6 % (0.0-10.0); %Lymphocytes 23.5 % (21.0-51.0); %Monocytes 11.2 % (0.0-10.0); %Neutrophils 58.3 % (42.0-75.0); Hemoglobin 11.9 g/dL (14.0-18.0); Mean Corpuscular HGB CONC 35.1 g/dL (32.0-36.0); Mean Corpuscular Hemoglobin 31.1 pg (27.0-31.0); Mean Corpuscular Volume 88.7 fL (78.0-98.0); Mean Platelet Volume 9.1 fL (7.4-10.4); Platelet Count 129 thou/uL (130-400); RBC Distribution Width 15.9 % (11.5-14.5); Red Blood Cell (RBC) Count 3.81 mill/uL (4.70-6.10); White Blood Cell (WBC) Count 6.4 thou/uL (4.8-10.8)
[2020-04-30 00:55] LABS: ALT (SGPT) 14 U/L (8-55); AST (SGOT) 15 U/L (5-34); Albumin 3.7 g/dL (3.5-5.0); Alkaline Phosphatase 40 U/L (40-110); Anion Gap 21 mmol/L (10-20); BUN (Urea Nitrogen) 66 mg/dL (8.4-25.7); Bilirubin, Total 0.7 mg/dL (0.2-1.2); Calc. Creatinine Clearance 0 mL/min (70-130); Calcium 10.4 mg/dL (7.8-10.44); Carbon Dioxide 24 mmol/L (22-29); Chloride 97 mmol/L (98-107); Globulin 4.6 g/dL (2.4-3.5); Glucose 78 mg/dL (70-105); Potassium 4.7 mmol/L (3.5-5.1); Protein, Total 8.3 g/dL (6.0-8.3); Sodium 137 mmol/L (136-145)
[2020-04-30] MEDS ORDERED: Acetaminophen 500 MG TAB ONE ×2 (01:31→02:11)
[2020-04-30 03:21] LABS: SARS-CoV-2 NAA Rapid Test DETECTED (NotDetected)
[2020-04-30 06:49] VITALS: BMI 27.7
[2020-04-30] MEDS ORDERED: Ondansetron ODT 4 MG TAB PO PRN (07:23)
[2020-04-30] MEDS ORDERED: Ondansetron PF 4 MG/2 ML Vial IVP PRN (07:23)
[2020-04-30] MEDS ORDERED: Acetaminophen 325 MG TAB PO PRN (07:24)
--- NOTE | 2020-04-30 07:52 | RAD ---
EXAM: Single view of the chest HISTORY: Shortness of breath COMPARISON: 02/08/2020 FINDINGS: Single view of the chest shows an enlarged but stable cardiomediastinal silhouette. Scatter ed multifocal infiltrates are seen. No acute osseous abnormality. IMPRESSION: Scattered multifocal infiltrates
[2020-04-30] MEDS ORDERED: Non-Formulary Item 1 EACH (Albuterol Sulfate [Proair Hfa] 8.5 GM Hfa.Aer.Ad) INH PRN (09:02)
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
[2020-04-30] MEDS ORDERED: Minoxidil 10 MG TAB PO SCH (09:15)
[2020-04-30] MEDS ORDERED: Albuterol 200 PUFF (6.7GM INHALER) INH PRN (09:39)
[2020-04-30] MEDS ORDERED: Non-Formulary Item 1 EACH (Ferric Citrate [Auryxia] 210 MG Tablet) PO SCH (12:00)
[2020-04-30] MEDS ORDERED: Ferric Citrate [Auryxia] 210 MG Tablet PO SCH (12:00)
--- NOTE | 2020-04-30 12:58 | CON ---
DATE OF CONSULTATION: 04/30/2020 HISTORY OF PRESENT ILLNESS: Mr. Fitzpatrick is a 59-year-old black male with ESRD, on maintenance hemodialysis and admitted for shortness of breath. Chest x-ray showed increased lung marking/CHF. No infiltrates were noted. His BNP was elevated. Due to the said signs and symptoms/CHF, he was admitted for further management. During the workup, he was found to be COVID-19 positive. We are now following up this patient for his ESRD/maintenance hemodialysis. I have scheduled him for dialysis today for 4 hours. REVIEW OF SYSTEMS: Positive for mild shortness of breath. No chest pain. No syncopal episode. Denies any fever or chills. No diarrhea. No constipation. No productive cough. No headache. Appetite and energy level are fair. No gross hematuria. No dysuria. No urinary frequency. No melena. No hematemesis. No abdominal pain. No diplopia. No sore throat. HOME MEDICATIONS: Include the following; 1. Tivicay 50 mg at bedtime. 2. Aspirin 325 mg daily. 3. Coreg 3.125 mg p.o. b.i.d. 4. Minoxidil 10 mg daily. 5. Nitroglycerin p.r.n. 6. Amlodipine 10 mg q.a.m. 7. Ferric citrate/Auryxia 4 tablets p.o. t.i.d. with meals. 8. Albuterol oral inhaler as directed. 9. Doravirine 100 mg daily. 10. Hydralazine 100 mg p.o. t.i.d. 11. Protonix 40 mg tablet once a day. PAST MEDICAL HISTORY: 1. ESRD from hypertensive nephropathy. 2. Longstanding hypertension. 3. HIV. 4. Status post CHF. 5. Status post C diff colitis. 6. Status post pneumocystis carinii pneumonia. 7. Recently diagnosis of COVID-19 infection. PAST SURGICAL HISTORY: 1. Status post AV fistula placement. 2. Status post cuffed hemodialysis catheter placement. SOCIAL HISTORY: The patient is , several children. Lives in [place]. Smoked for several years about half-a-pack a day. Currently, on minimal smoking, status post multiple blood transfusions. 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 Education, high school. No alcohol use. No IV drug use. TRAUMA: None. IMMUNIZATION: Up to date. HOSPITALIZATIONS: Please see past medical history. ALLERGIES: HE IS ALLERGIC TO DAIRY PRODUCTS AND SULFA. FAMILY HISTORY: No family history of ESRD. PHYSICAL EXAMINATION: VITAL SIGNS: Blood pressure 141/70, heart rate 90, respiratory rate 16, temperature 97.7, O2 saturation 94%. GENERAL: The patient is noted to be awake, sitting comfortable, not in distress. SKIN: Adequate turgor. HEENT: He has pinkish conjunctivae. Anicteric sclerae. No neck mass. No carotid bruits. No JVD. CHEST: No deformities. LUNGS: Clear breath sounds. HEART: Normal sinus rhythm. No murmur. No gallops. No rubs. ABDOMEN: Globular, soft, nontender. No masses. EXTREMITIES: No edema. No deformities. MEDICATIONS: On April 30, 2020, hospital medications were reviewed LABORATORY DATA: Laboratories of April 30, 2020; white count 6.4, hemoglobin 11.9. Sodium 137, potassium 4.7, chloride 97, carbon dioxide 24, BUN 66, creatinine 9.42, calcium 10.4. LFTs normal. Albumin 3.7. BNP is 3756.5. Chest x-ray of April 30, 2020, scattered multifocal infiltrates are seen. ASSESSMENT AND PLAN: 1. COVID-19 pneumonia - continue supportive care. The patient is stable. 2. Shortness of breath, multifactorial etiology - consider CHF/COVID-19 pneumonia. Hemodialysis today with fluid removal. 3. End-stage renal disease. I have scheduled the patient for hemodialysis today with fluid removal of about 4 L as tolerated by the patient. 4. Chronic anemia, stable. No indication for any Epogen. Agree with current management. Job ID: [id number]
[2020-04-30] MEDS: hydrALAZINE 25 MG TAB PO SCH ×2 (13:55→20:09)
[2020-04-30] MEDS ORDERED: Carvedilol 3.125 MG TAB PO SCH (21:00)
[2020-04-30] MEDS ORDERED: Non-Formulary Item 1 EACH (Dolutegravir Sodium [Tivicay] 50 MG Tablet) PO SCH (21:00)
[2020-05-01 03:21] VITALS: BP 129/61; TEMP 98.3
[2020-05-01 05:41] LABS: Anion Gap 16 mmol/L (10-20); BUN (Urea Nitrogen) 47 mg/dL (8.4-25.7); Calc. Creatinine Clearance 13 mL/min (70-130); Carbon Dioxide 25 mmol/L (22-29); Chloride 98 mmol/L (98-107); Glucose 62 mg/dL (70-105); Potassium 4.8 mmol/L (3.5-5.1); Sodium 134 mmol/L (136-145)
[2020-05-01 05:49] LABS: Eosinophils 5 % (0-10); Hemoglobin 11.1 g/dL (14.0-18.0); Lymphocytes 19 % (21-51); MDiff Complete? YES; Mean Corpuscular HGB CONC 34.6 g/dL (32.0-36.0); Mean Corpuscular Hemoglobin 30.7 pg (27.0-31.0); Mean Corpuscular Volume 88.9 fL (78.0-98.0); Mean Platelet Volume 9.3 fL (7.4-10.4); Monocytes 12 % (0-10); Neutrophil 62 % (42-75); Platelet Count 117 thou/uL (130-400); Platelet Morphology Comment Appears Decreased; RBC Distribution Width 15.8 % (11.5-14.5); Red Blood Cell (RBC) Count 3.61 mill/uL (4.70-6.10); Target Cells SLIGHT = 2-5 cells (100X) (0-1/hpf); White Blood Cell (WBC) Count 4.8 thou/uL (4.8-10.8)
[2020-05-01] MEDS ORDERED: Amlodipine 10 MG TAB PO SCH (09:00)
[2020-05-01] MEDS ORDERED: Aspirin 325 MG TAB PO SCH (09:00)
[2020-05-01] MEDS ORDERED: DORAVIRINE 100 MG PO SCH ×2 (09:00)
== END 2020-05-01 07:56 | disposition left against medical advice (07) ==
LOC: ERS 23:35 → ERHOLD 04-30 02:16 → 2SE 04-30 06:33
PROVIDERS: ADMIT Student in an Organized Health Care Education/Training Program; ATTEND Student in an Organized Health Care Education/Training Program
DX: U07.1 COVID-19 (principal); J12.82 Pneumonia due to coronavirus disease 2019; I13.2 Hypertensive heart and chronic kidney disease with heart failure and with stage 5 chronic kidney disease, or end stage renal disease; N18.6 End stage renal disease; I50.9 Heart failure, unspecified; D63.1 Anemia in chronic kidney disease; K21.9 Gastro-esophageal reflux disease without esophagitis; F17.210 Nicotine dependence, cigarettes, uncomplicated; Z21 Asymptomatic human immunodeficiency virus [HIV] infection status; Z23 Encounter for immunization; Z79.899 Other long term (current) drug therapy; Z88.2 Allergy status to sulfonamides; Z91.011 Allergy to milk products; Z99.2 Dependence on renal dialysis
CPT/HCPCS: 0240U; 71045; 80048; 80053; 83880; 85025 ×2; 90732; 99285; G0009; 36415; 90471; 90935; G0257; G0378

== ENCOUNTER 2020-05-27 02:51 | Emergency (ER) | payer MEDICARE ==
[2020-05-27 03:42] LABS: #Basophils 0.1 thou/uL (0.0-0.2); #Eosinphils 0.3 thou/uL (0.0-0.7); #Lymphocytes 1.7 thou/uL (1.20-3.40); #Monocytes 0.8 thou/uL (0.11-0.59); #Neutrophils 4.5 thou/uL (1.40-6.50); %Basophils 1.5 % (0.0-1.0); %Eosinophils 3.7 % (0.0-10.0); %Lymphocytes 23.7 % (21.0-51.0); %Monocytes 10.2 % (0.0-10.0); %Neutrophils 60.9 % (42.0-75.0); Hemoglobin 11.9 g/dL (14.0-18.0); Mean Corpuscular HGB CONC 34.9 g/dL (32.0-36.0); Mean Corpuscular Hemoglobin 30.7 pg (27.0-31.0); Mean Corpuscular Volume 88.1 fL (78.0-98.0); Mean Platelet Volume 8.9 fL (7.4-10.4); Platelet Count 157 thou/uL (130-400); RBC Distribution Width 15.4 % (11.5-14.5); Red Blood Cell (RBC) Count 3.87 mill/uL (4.70-6.10); White Blood Cell (WBC) Count 7.3 thou/uL (4.8-10.8)
[2020-05-27 03:54] LABS: ALT (SGPT) 26 U/L (8-55); AST (SGOT) 24 U/L (5-34); Albumin 3.7 g/dL (3.5-5.0); Alkaline Phosphatase 50 U/L (40-110); Anion Gap 22 mmol/L (10-20); BUN (Urea Nitrogen) 83 mg/dL (8.4-25.7); Bilirubin, Total 0.5 mg/dL (0.2-1.2); Calc. Creatinine Clearance 0 mL/min (70-130); Calcium 9.7 mg/dL (7.8-10.44); Carbon Dioxide 20 mmol/L (22-29); Chloride 99 mmol/L (98-107); Globulin 4.4 g/dL (2.4-3.5); Glucose 95 mg/dL (70-105); Potassium 5.8 mmol/L (3.5-5.1); Protein, Total 8.1 g/dL (6.0-8.3); Sodium 135 mmol/L (136-145)
== END 2020-05-27 05:18 | disposition home or self-care (01) ==
LOC: ERS 02:51
DX: I12.0 Hypertensive chronic kidney disease with stage 5 chronic kidney disease or end stage renal disease (principal); N18.6 End stage renal disease; Z21 Asymptomatic human immunodeficiency virus [HIV] infection status; Z79.82 Long term (current) use of aspirin; Z79.899 Other long term (current) drug therapy
CPT/HCPCS: 36415; 71045; 80053; 83880; 85025; 93005; J7620

== ENCOUNTER 2020-05-31 04:50 | Inpatient (IN) | payer MEDICARE ==
[2020-05-31] MEDS ORDERED: Albuterol Sulfate 2.5 mg/0.5 ml Neb ONE (05:12)
[2020-05-31 05:48] LABS: Hemoglobin 12.6 g/dL (14.0-18.0); Mean Corpuscular HGB CONC 35.4 g/dL (32.0-36.0); Mean Corpuscular Hemoglobin 31.8 pg (27.0-31.0); Mean Corpuscular Volume 89.8 fL (78.0-98.0); Mean Platelet Volume 8.8 fL (7.4-10.4); Platelet Count 166 thou/uL (130-400); RBC Distribution Width 15.2 % (11.5-14.5); Red Blood Cell (RBC) Count 3.97 mill/uL (4.70-6.10); White Blood Cell (WBC) Count 9.6 thou/uL (4.8-10.8)
[2020-05-31 06:02] LABS: Eosinophils 5 % (0-10); Hypochromia SLIGHT = 6-15 cells (100X) (0-5/hpf); Lymphocytes 8 % (21-51); MDiff Complete? YES; Monocytes 12 % (0-10); Neutrophil 75 % (42-75); Platelet Morphology Comment Appears Adequate
[2020-05-31 06:04] LABS: ALT (SGPT) 28 U/L (8-55); AST (SGOT) 28 U/L (5-34); Albumin 3.8 g/dL (3.5-5.0); Alkaline Phosphatase 50 U/L (40-110); Anion Gap 16 mmol/L (10-20); BUN (Urea Nitrogen) 59 mg/dL (8.4-25.7); Bilirubin, Total 0.6 mg/dL (0.2-1.2); Calc. Creatinine Clearance 0 mL/min (70-130); Calcium 10.8 mg/dL (7.8-10.44); Carbon Dioxide 27 mmol/L (22-29); Chloride 97 mmol/L (98-107); Globulin 4.2 g/dL (2.4-3.5); Glucose 106 mg/dL (70-105); Potassium 5.7 mmol/L (3.5-5.1); Sodium 134 mmol/L (136-145)
[2020-05-31 09:15] LABS: SARS-CoV-2 NAA Rapid Test Not Detected (NotDetected)
[2020-05-31] MEDS ORDERED: Heparin 10,000 UNITS/ 10 ML VIAL ONE ×2 (11:46)
[2020-05-31 13:10] LABS: Troponin I 0.203 ng/mL (< 0.028)
[2020-05-31] MEDS: Nicotine 14 MG PATCH TD SCH (13:56)
[2020-05-31 16:00] LABS: Troponin I 0.217 ng/mL (< 0.028)
[2020-05-31 16:42] VITALS: BMI 26.2
[2020-06-01 04:36] LABS: #Basophils 0.1 thou/uL (0.0-0.2); #Eosinphils 0.3 thou/uL (0.0-0.7); #Lymphocytes 1.7 thou/uL (1.20-3.40); #Monocytes 0.7 thou/uL (0.11-0.59); #Neutrophils 3.7 thou/uL (1.40-6.50); %Basophils 1.3 % (0.0-1.0); %Eosinophils 4.9 % (0.0-10.0); %Lymphocytes 26.3 % (21.0-51.0); %Monocytes 10.4 % (0.0-10.0); %Neutrophils 57.1 % (42.0-75.0); Mean Corpuscular Hemoglobin 30.1 pg (27.0-31.0); Mean Corpuscular Volume 88.7 fL (78.0-98.0); Mean Platelet Volume 8.7 fL (7.4-10.4); Platelet Count 158 thou/uL (130-400); RBC Distribution Width 15.1 % (11.5-14.5); Red Blood Cell (RBC) Count 3.65 mill/uL (4.70-6.10); White Blood Cell (WBC) Count 6.5 thou/uL (4.8-10.8)
[2020-06-01 05:01] LABS: Anion Gap 13 mmol/L (10-20); BUN (Urea Nitrogen) 38 mg/dL (8.4-25.7); Calc. Creatinine Clearance 14 mL/min (70-130); Calcium 9.1 mg/dL (7.8-10.44); Carbon Dioxide 29 mmol/L (22-29); Chloride 98 mmol/L (98-107); Glucose 107 mg/dL (70-105); Potassium 4.5 mmol/L (3.5-5.1); Sodium 135 mmol/L (136-145)
[2020-06-01] MEDS: Nicotine 14 MG PATCH TD SCH (08:52)
[2020-06-01] MEDS: hydrALAZINE 25 MG TAB PO SCH ×3 (08:53→21:29)
[2020-06-01] MEDS: Amlodipine 10 MG TAB PO SCH (08:53)
[2020-06-01] MEDS ORDERED: Minoxidil 10 MG TAB PO SCH (21:00)
[2020-06-02 07:46] VITALS: BP 120/62; TEMP 98.1
[2020-06-02] MEDS: hydrALAZINE 25 MG TAB PO SCH (08:19)
[2020-06-02] MEDS: Amlodipine 10 MG TAB PO SCH (08:19)
[2020-06-02] MEDS: Nicotine 14 MG PATCH TD SCH (08:20)
[2020-06-02] MEDS ORDERED: PIFELTRO 100 MG PO SCH (09:00)
== END 2020-06-02 11:45 | disposition home or self-care (01) | DRG 291 ==
LOC: ERS 04:50 → SUATTDRO 04:50 → ERHOLD 06:55 → 2NO 12:59 → OBSVTOIN 06-01 09:31
PROVIDERS: ADMIT Student in an Organized Health Care Education/Training Program; ATTEND Internal Medicine
PROC: 5A1D70Z Performance of Urinary Filtration, Intermittent, Less than 6 Hours Per Day (ICD-10-PCS; principal; 2020-05-31)
PROC: 5A09357 Assistance with Respiratory Ventilation, Less than 24 Consecutive Hours, Continuous Positive Airway Pressure (ICD-10-PCS; 2020-05-31)
DX: I13.2 Hypertensive heart and chronic kidney disease with heart failure and with stage 5 chronic kidney disease, or end stage renal disease (principal); J96.01 Acute respiratory failure with hypoxia; N18.6 End stage renal disease; I50.33 Acute on chronic diastolic (congestive) heart failure; Z21 Asymptomatic human immunodeficiency virus [HIV] infection status; Z20.822 Contact with and (suspected) exposure to COVID-19; E87.5 Hyperkalemia; F17.210 Nicotine dependence, cigarettes, uncomplicated; K21.9 Gastro-esophageal reflux disease without esophagitis; Z99.2 Dependence on renal dialysis; Z88.2 Allergy status to sulfonamides; Z91.011 Allergy to milk products; Z79.899 Other long term (current) drug therapy; Z79.82 Long term (current) use of aspirin
CPT/HCPCS: 0240U; 36415; 71045; 80048; 80053; 82553; 83880; 84484; 85025; 90935; 93005; 93306; 94660; G0257; G0378; J1644; J7611

== ENCOUNTER 2021-05-05 12:57 | Emergency (ER) | payer MEDICARE ==
[2021-05-05 13:57] LABS: #Basophils 0.1 thou/uL (0.0-0.2); #Eosinphils 1.5 thou/uL (0.0-0.7); #Lymphocytes 1.2 thou/uL (1.20-3.40); #Monocytes 0.8 thou/uL (0.11-0.59); #Neutrophils 3.7 thou/uL (1.40-6.50); %Basophils 1.1 % (0.0-1.0); %Monocytes 10.7 % (0.0-10.0); %Neutrophils 51.2 % (42.0-75.0); Hemoglobin 10.4 g/dL (14.0-18.0); Mean Corpuscular Hemoglobin 30.3 pg (27.0-31.0); Mean Corpuscular Volume 91.8 fL (78.0-98.0); Mean Platelet Volume 7.8 fL (7.4-10.4); Platelet Count 162 thou/uL (130-400); RBC Distribution Width 15.7 % (11.5-14.5); Red Blood Cell (RBC) Count 3.42 mill/uL (4.70-6.10); White Blood Cell (WBC) Count 7.3 thou/uL (4.8-10.8)
[2021-05-05 14:31] LABS: ALT (SGPT) 8 U/L (8-55); AST (SGOT) 11 U/L (5-34); Alkaline Phosphatase 82 U/L (40-110); Anion Gap 10 mmol/L (10-20); BUN (Urea Nitrogen) 15 mg/dL (8.4-25.7); Bilirubin, Total 0.7 mg/dL (0.2-1.2); Calc. Creatinine Clearance 0 mL/min (70-130); Calcium 8.9 mg/dL (7.8-10.44); Carbon Dioxide 33 mmol/L (22-29); Chloride 97 mmol/L (98-107); Globulin 5.2 g/dL (2.4-3.5); Glucose 79 mg/dL (70-105); Lipase 66 U/L (8-78); Potassium 3.6 mmol/L (3.5-5.1); Protein, Total 8.2 g/dL (6.0-8.3); Sodium 136 mmol/L (136-145)
[2021-05-05 14:50] LABS: CKMB 3.8 ng/mL (0-6.6)
== END 2021-05-05 16:16 | disposition home or self-care (01) ==
LOC: ERS 12:57
DX: M79.602 Pain in left arm (principal); I12.0 Hypertensive chronic kidney disease with stage 5 chronic kidney disease or end stage renal disease; N18.6 End stage renal disease; F17.210 Nicotine dependence, cigarettes, uncomplicated; Z79.899 Other long term (current) drug therapy; Z99.2 Dependence on renal dialysis; Z79.82 Long term (current) use of aspirin
CPT/HCPCS: 36415; 71045; 80053; 82553; 83690; 84484; 85025; 93005

== ENCOUNTER 2021-07-13 10:27 | Emergency (ER) | payer MEDICARE ==
[2021-07-13 11:04] LABS: #Basophils 0.1 thou/uL (0.0-0.2); #Eosinphils 0.7 thou/uL (0.0-0.7); #Lymphocytes 1.4 thou/uL (1.20-3.40); #Monocytes 0.6 thou/uL (0.11-0.59); #Neutrophils 2.6 thou/uL (1.40-6.50); %Basophils 1.3 % (0.0-1.0); %Eosinophils 12.7 % (0.0-10.0); %Lymphocytes 26.3 % (21.0-51.0); %Monocytes 10.5 % (0.0-10.0); %Neutrophils 49.2 % (42.0-75.0); Hemoglobin 13.9 g/dL (14.0-18.0); Mean Corpuscular HGB CONC 34.2 g/dL (32.0-36.0); Mean Corpuscular Volume 90.6 fL (78.0-98.0); Mean Platelet Volume 8.8 fL (7.4-10.4); Platelet Count 180 thou/uL (130-400); RBC Distribution Width 16.8 % (11.5-14.5); Red Blood Cell (RBC) Count 4.47 mill/uL (4.70-6.10); White Blood Cell (WBC) Count 5.3 thou/uL (4.8-10.8)
[2021-07-13 11:28] LABS: Magnesium 2.4 mg/dL (1.6-2.6); Phosphorus 5.3 mg/dL (2.3-4.7)
[2021-07-13 11:29] LABS: ALT (SGPT) 15 U/L (8-55); AST (SGOT) 17 U/L (5-34); Albumin 3.8 g/dL (3.5-5.0); Alkaline Phosphatase 59 U/L (40-110); Anion Gap 20 mmol/L (10-20); BUN (Urea Nitrogen) 52 mg/dL (8.4-25.7); Bilirubin, Total 0.5 mg/dL (0.2-1.2); Calc. Creatinine Clearance 0 mL/min (70-130); Calcium 9.9 mg/dL (7.8-10.44); Carbon Dioxide 25 mmol/L (22-29); Chloride 95 mmol/L (98-107); Globulin 5.1 g/dL (2.4-3.5); Glucose 96 mg/dL (70-105); Potassium 5.3 mmol/L (3.5-5.1); Protein, Total 8.9 g/dL (6.0-8.3); Sodium 135 mmol/L (136-145)
[2021-07-13 11:52] LABS: CKMB 3.6 ng/mL (0-6.6)
== END 2021-07-13 18:21 | disposition home or self-care (01) ==
LOC: ERS 10:27
DX: J81.0 Acute pulmonary edema (principal); I12.0 Hypertensive chronic kidney disease with stage 5 chronic kidney disease or end stage renal disease; N18.6 End stage renal disease; F17.210 Nicotine dependence, cigarettes, uncomplicated; Z99.2 Dependence on renal dialysis
CPT/HCPCS: 36415; 71045; 80053; 82553; 83735; 83880; 84100; 84484; 85025; 90935; G0257

== ENCOUNTER 2021-08-01 02:03 | Emergency (ER) | payer MEDICARE, OTHER, SELFPAY ==
[2021-08-01 02:40] LABS: #Basophils 0.1 thou/uL (0.0-0.2); #Eosinphils 0.6 thou/uL (0.0-0.7); #Lymphocytes 1.4 thou/uL (1.20-3.40); #Monocytes 0.8 thou/uL (0.11-0.59); #Neutrophils 3.1 thou/uL (1.40-6.50); %Basophils 1.1 % (0.0-1.0); %Eosinophils 9.5 % (0.0-10.0); %Monocytes 13.2 % (0.0-10.0); %Neutrophils 52.2 % (42.0-75.0); Hemoglobin 12.9 g/dL (14.0-18.0); Mean Corpuscular HGB CONC 33.3 g/dL (32.0-36.0); Mean Corpuscular Hemoglobin 29.4 pg (27.0-31.0); Mean Corpuscular Volume 88.4 fL (78.0-98.0); Mean Platelet Volume 9.2 fL (7.4-10.4); Platelet Count 160 thou/uL (130-400); RBC Distribution Width 16.6 % (11.5-14.5); White Blood Cell (WBC) Count 5.9 thou/uL (4.8-10.8)
[2021-08-01 03:00] LABS: ALT (SGPT) 8 U/L (8-55); AST (SGOT) 7 U/L (5-34); Albumin 3.7 g/dL (3.5-5.0); Alkaline Phosphatase 49 U/L (40-110); Anion Gap 20 mmol/L (10-20); BUN (Urea Nitrogen) 51 mg/dL (8.4-25.7); Bilirubin, Total 0.8 mg/dL (0.2-1.2); Calc. Creatinine Clearance 0 mL/min (70-130); Calcium 9.7 mg/dL (7.8-10.44); Carbon Dioxide 25 mmol/L (22-29); Chloride 94 mmol/L (98-107); Glucose 96 mg/dL (70-105); Protein, Total 8.7 g/dL (6.0-8.3); Sodium 134 mmol/L (136-145)
[2021-08-01 03:21] LABS: CKMB 1.8 ng/mL (0-6.6)
== END 2021-08-01 05:42 ==
LOC: ERS 02:03
DX: R06.02 Shortness of breath (principal); I12.0 Hypertensive chronic kidney disease with stage 5 chronic kidney disease or end stage renal disease; N18.6 End stage renal disease; F17.210 Nicotine dependence, cigarettes, uncomplicated; Z99.2 Dependence on renal dialysis
CPT/HCPCS: 71045; 80053; 82553; 83880; 84484; 85025; 93005

== ENCOUNTER 2021-08-10 07:27 | Emergency (ER) | payer MEDICARE, SELFPAY ==
[2021-08-10 07:56] LABS: #Basophils 0.1 thou/uL (0.0-0.2); #Eosinphils 0.8 thou/uL (0.0-0.7); #Lymphocytes 1.8 thou/uL (1.20-3.40); #Monocytes 0.7 thou/uL (0.11-0.59); #Neutrophils 3.1 thou/uL (1.40-6.50); %Basophils 1.1 % (0.0-1.0); %Eosinophils 12.5 % (0.0-10.0); %Lymphocytes 27.8 % (21.0-51.0); %Monocytes 10.5 % (0.0-10.0); %Neutrophils 48.2 % (42.0-75.0); Hemoglobin 13.2 g/dL (14.0-18.0); Mean Corpuscular HGB CONC 32.7 g/dL (32.0-36.0); Mean Corpuscular Volume 88.7 fL (78.0-98.0); Mean Platelet Volume 8.3 fL (7.4-10.4); Platelet Count 204 thou/uL (130-400); RBC Distribution Width 16.5 % (11.5-14.5); Red Blood Cell (RBC) Count 4.57 mill/uL (4.70-6.10); White Blood Cell (WBC) Count 6.5 thou/uL (4.8-10.8)
[2021-08-10 08:37] LABS: ALT (SGPT) 9 U/L (8-55); AST (SGOT) 12 U/L (5-34); Albumin 3.7 g/dL (3.5-5.0); Alkaline Phosphatase 50 U/L (40-110); Anion Gap 14 mmol/L (10-20); BUN (Urea Nitrogen) 53 mg/dL (8.4-25.7); Bilirubin, Total 0.8 mg/dL (0.2-1.2); Calc. Creatinine Clearance 0 mL/min (70-130); Calcium 9.9 mg/dL (7.8-10.44); Carbon Dioxide 29 mmol/L (22-29); Chloride 94 mmol/L (98-107); Globulin 5.7 g/dL (2.4-3.5); Glucose 74 mg/dL (70-105); Potassium 4.4 mmol/L (3.5-5.1); Protein, Total 9.4 g/dL (6.0-8.3); Sodium 133 mmol/L (136-145)
[2021-08-10 08:46] LABS: CKMB 2.5 ng/mL (0-6.6)
[2021-08-10 09:12] LABS: Magnesium 2.1 mg/dL (1.6-2.6)
== END 2021-08-10 09:21 | disposition home or self-care (01) ==
LOC: ERS 07:27
DX: R06.02 Shortness of breath (principal); B20 Human immunodeficiency virus [HIV] disease; I12.0 Hypertensive chronic kidney disease with stage 5 chronic kidney disease or end stage renal disease; N18.6 End stage renal disease; F17.210 Nicotine dependence, cigarettes, uncomplicated; Z99.2 Dependence on renal dialysis
CPT/HCPCS: 36415; 71045; 80053; 82553; 83735; 83880; 84100; 84484; 85025; 93005; 94640; J7620

== ENCOUNTER 2021-08-31 06:58 | Emergency (ER) | payer MEDICARE ==
[2021-08-31 07:45] LABS: #Basophils 0.1 thou/uL (0.0-0.2); #Eosinphils 1.5 thou/uL (0.0-0.7); #Lymphocytes 1.8 thou/uL (1.20-3.40); #Monocytes 0.8 thou/uL (0.11-0.59); #Neutrophils 3.7 thou/uL (1.40-6.50); %Basophils 1.6 % (0.0-1.0); %Eosinophils 18.7 % (0.0-10.0); %Lymphocytes 22.5 % (21.0-51.0); %Monocytes 10.4 % (0.0-10.0); %Neutrophils 46.9 % (42.0-75.0); Hemoglobin 10.9 g/dL (14.0-18.0); Mean Corpuscular HGB CONC 34.7 g/dL (32.0-36.0); Mean Corpuscular Hemoglobin 30.6 pg (27.0-31.0); Mean Corpuscular Volume 88.2 fL (78.0-98.0); Mean Platelet Volume 8.6 fL (7.4-10.4); Platelet Count 149 thou/uL (130-400); RBC Distribution Width 16.3 % (11.5-14.5); Red Blood Cell (RBC) Count 3.57 mill/uL (4.70-6.10)
[2021-08-31 08:07] LABS: ALT (SGPT) Less than 7 U/L (8-55); AST (SGOT) 16 U/L (5-34); Albumin 3.7 g/dL (3.5-5.0); Alkaline Phosphatase 42 U/L (40-110); Anion Gap 18 mmol/L (10-20); BUN (Urea Nitrogen) 44 mg/dL (8.4-25.7); Bilirubin, Total 0.9 mg/dL (0.2-1.2); Calc. Creatinine Clearance 0 mL/min (70-130); Calcium 10.6 mg/dL (7.8-10.44); Carbon Dioxide 26 mmol/L (22-29); Chloride 96 mmol/L (98-107); Glucose 78 mg/dL (70-105); Potassium 4.9 mmol/L (3.5-5.1); Protein, Total 8.7 g/dL (6.0-8.3); Sodium 135 mmol/L (136-145)
[2021-08-31 08:28] LABS: CKMB 2.5 ng/mL (0-6.6)
[2021-08-31 15:39] LABS: HBSAg Index 0.21 S/CO (0-0.99); Hep B Core Total Ab Non-Reactive (NonReactive); Hep B Core Total Index 0.11 S/CO (0-0.79); Hep B Surf Ag Non-Reactive S/CO (NonReactive); Hep C IgG Ab Non-Reactive (NonReactive); Hep C Index 0.19 S/CO (0-0.79)
[2021-08-31 15:53] LABS: HBSAB Concentration 129.19 mIU/mL; Hep B Surf AB Reactive (NonReactive)
== END 2021-08-31 19:43 | disposition home or self-care (01) ==
LOC: ERS 06:58
DX: R06.00 Dyspnea, unspecified (principal); R77.8 Other specified abnormalities of plasma proteins; I12.0 Hypertensive chronic kidney disease with stage 5 chronic kidney disease or end stage renal disease; N18.6 End stage renal disease; E87.70 Fluid overload, unspecified; I73.9 Peripheral vascular disease, unspecified; Z21 Asymptomatic human immunodeficiency virus [HIV] infection status; F17.210 Nicotine dependence, cigarettes, uncomplicated
CPT/HCPCS: 71045; 80053; 82553; 83880; 84484; 85025; 86704; 87340; 90935; 93005; 93923; G0257

== ENCOUNTER 2021-09-04 08:32 | Emergency (ER) | payer MEDICARE ==
[2021-09-04 09:39] LABS: #Basophils 0.1 thou/uL (0.0-0.2); #Eosinphils 0.6 thou/uL (0.0-0.7); #Lymphocytes 1.5 thou/uL (1.20-3.40); #Monocytes 0.8 thou/uL (0.11-0.59); #Neutrophils 3.4 thou/uL (1.40-6.50); %Basophils 1.1 % (0.0-1.0); %Eosinophils 9.8 % (0.0-10.0); %Lymphocytes 23.3 % (21.0-51.0); %Monocytes 12.9 % (0.0-10.0); %Neutrophils 52.9 % (42.0-75.0); Hemoglobin 10.6 g/dL (14.0-18.0); Mean Corpuscular HGB CONC 32.9 g/dL (32.0-36.0); Mean Corpuscular Hemoglobin 29.9 pg (27.0-31.0); Mean Corpuscular Volume 90.8 fL (78.0-98.0); Mean Platelet Volume 8.7 fL (7.4-10.4); Platelet Count 153 thou/uL (130-400); RBC Distribution Width 17.1 % (11.5-14.5); Red Blood Cell (RBC) Count 3.55 mill/uL (4.70-6.10); White Blood Cell (WBC) Count 6.3 thou/uL (4.8-10.8)
[2021-09-04 09:54] LABS: ALT (SGPT) Less than 7 U/L (8-55); AST (SGOT) 15 U/L (5-34); Albumin 3.5 g/dL (3.5-5.0); Alkaline Phosphatase 43 U/L (40-110); Anion Gap 17 mmol/L (10-20); BUN (Urea Nitrogen) 29 mg/dL (8.4-25.7); Bilirubin, Total 0.8 mg/dL (0.2-1.2); Calc. Creatinine Clearance 0 mL/min (70-130); Calcium 9.3 mg/dL (7.8-10.44); Carbon Dioxide 28 mmol/L (22-29); Chloride 95 mmol/L (98-107); Globulin 4.8 g/dL (2.4-3.5); Glucose 76 mg/dL (70-105); Potassium 4.1 mmol/L (3.5-5.1); Protein, Total 8.3 g/dL (6.0-8.3); Sodium 136 mmol/L (136-145)
[2021-09-04 13:09] LABS: Troponin I 0.127 ng/mL (< 0.028)
== END 2021-09-04 13:36 | disposition home or self-care (01) ==
LOC: ERS 08:32
DX: E87.70 Fluid overload, unspecified (principal); R06.02 Shortness of breath; I12.0 Hypertensive chronic kidney disease with stage 5 chronic kidney disease or end stage renal disease; N18.6 End stage renal disease; Z99.2 Dependence on renal dialysis; F17.210 Nicotine dependence, cigarettes, uncomplicated; Z79.899 Other long term (current) drug therapy; Z79.82 Long term (current) use of aspirin
CPT/HCPCS: 36415; 71045; 80053; 82553; 83880; 84484; 85025; 93005

== ENCOUNTER 2021-09-28 20:31 | Emergency (ER) | payer MEDICARE ==
[2021-09-28 21:05] LABS: #Basophils 0.1 thou/uL (0.0-0.2); #Eosinphils 0.6 thou/uL (0.0-0.7); #Lymphocytes 2.2 thou/uL (1.20-3.40); #Monocytes 0.7 thou/uL (0.11-0.59); #Neutrophils 2.7 thou/uL (1.40-6.50); %Basophils 1.4 % (0.0-1.0); %Lymphocytes 34.4 % (21.0-51.0); %Monocytes 11.5 % (0.0-10.0); %Neutrophils 42.6 % (42.0-75.0); Hemoglobin 11.7 g/dL (14.0-18.0); Mean Corpuscular HGB CONC 34.6 g/dL (32.0-36.0); Mean Corpuscular Hemoglobin 32.4 pg (27.0-31.0); Mean Corpuscular Volume 93.7 fL (78.0-98.0); Mean Platelet Volume 8.8 fL (7.4-10.4); Platelet Count 126 thou/uL (130-400); RBC Distribution Width 18.4 % (11.5-14.5); Red Blood Cell (RBC) Count 3.61 mill/uL (4.70-6.10); White Blood Cell (WBC) Count 6.4 thou/uL (4.8-10.8)
[2021-09-28 21:28] LABS: ALT (SGPT) 9 U/L (8-55); AST (SGOT) 12 U/L (5-34); Albumin 3.6 g/dL (3.5-5.0); Alkaline Phosphatase 40 U/L (40-110); Anion Gap 19 mmol/L (10-20); BUN (Urea Nitrogen) 54 mg/dL (8.4-25.7); Bilirubin, Total 0.9 mg/dL (0.2-1.2); Calc. Creatinine Clearance 0 mL/min (70-130); Calcium 8.7 mg/dL (7.8-10.44); Carbon Dioxide 24 mmol/L (22-29); Chloride 96 mmol/L (98-107); Estimated GFR 5; Globulin 4.2 g/dL (2.4-3.5); Glucose 94 mg/dL (70-105); Lipase 127 U/L (8-78); Potassium 5.3 mmol/L (3.5-5.1); Protein, Total 7.8 g/dL (6.0-8.3); Sodium 134 mmol/L (136-145)
[2021-09-28 22:06] LABS: CKMB 3.1 ng/mL (0-6.6)
== END 2021-09-29 00:15 | disposition home or self-care (01) ==
LOC: ERS 20:31
DX: R06.02 Shortness of breath (principal); I12.0 Hypertensive chronic kidney disease with stage 5 chronic kidney disease or end stage renal disease; N18.6 End stage renal disease; Z99.2 Dependence on renal dialysis; Z79.82 Long term (current) use of aspirin; Z79.899 Other long term (current) drug therapy
CPT/HCPCS: 36415; 71045; 80053; 82553; 83690; 83880; 84484; 85025; 93005; J7620

== ENCOUNTER 2022-01-05 00:52 | Emergency (ER) | payer MEDICARE ==
[2022-01-05 01:52] LABS: #Basophils 0.1 thou/uL (0.0-0.2); #Eosinphils 1.2 thou/uL (0.0-0.7); #Lymphocytes 1.9 thou/uL (1.20-3.40); #Monocytes 0.8 thou/uL (0.11-0.59); #Neutrophils 3.1 thou/uL (1.40-6.50); %Basophils 1.6 % (0.0-1.0); %Eosinophils 17.1 % (0.0-10.0); %Monocytes 10.6 % (0.0-10.0); %Neutrophils 43.7 % (42.0-75.0); Hemoglobin 13.5 g/dL (14.0-18.0); Mean Corpuscular HGB CONC 33.9 g/dL (32.0-36.0); Mean Corpuscular Hemoglobin 31.8 pg (27.0-31.0); Mean Corpuscular Volume 93.9 fL (78.0-98.0); Mean Platelet Volume 8.9 fL (7.4-10.4); Platelet Count 160 thou/uL (130-400); RBC Distribution Width 15.3 % (11.5-14.5); Red Blood Cell (RBC) Count 4.24 mill/uL (4.70-6.10); White Blood Cell (WBC) Count 7.1 thou/uL (4.8-10.8)
[2022-01-05 02:13] LABS: ALT (SGPT) 12 U/L (8-55); AST (SGOT) 8 U/L (5-34); Albumin 3.8 g/dL (3.5-5.0); Alkaline Phosphatase 36 U/L (40-110); Anion Gap 21 mmol/L (10-20); BUN (Urea Nitrogen) 72 mg/dL (8.4-25.7); Calc. Creatinine Clearance 0 mL/min (70-130); Calcium 9.7 mg/dL (7.8-10.44); Carbon Dioxide 23 mmol/L (22-29); Chloride 95 mmol/L (98-107); Estimated GFR 5; Globulin 4.3 g/dL (2.4-3.5); Glucose 86 mg/dL (70-105); Potassium 5.6 mmol/L (3.5-5.1); Protein, Total 8.1 g/dL (6.0-8.3); Sodium 133 mmol/L (136-145)
== END 2022-01-05 04:55 | disposition home or self-care (01) ==
LOC: ERS 00:52
DX: R06.02 Shortness of breath (principal); I12.0 Hypertensive chronic kidney disease with stage 5 chronic kidney disease or end stage renal disease; N18.6 End stage renal disease; Z87.891 Personal history of nicotine dependence
CPT/HCPCS: 36415; 71045; 80053; 85025; 93005

== ENCOUNTER 2022-07-17 13:31 | Inpatient (IN) | payer MEDICARE ==
[~2022-07-17 13:31] MED LIST: Iopamidol 370 76% 100 ML VIAL ONE
[2022-07-17] MEDS ORDERED: Acetaminophen 500 MG TAB ONE (14:30)
[2022-07-17 14:54] LABS: #Eosinphils 0.5 thou/uL (0.0-0.7); #Lymphocytes 1.1 thou/uL (1.20-3.40); #Monocytes 0.8 thou/uL (0.11-0.59); #Neutrophils 4.8 thou/uL (1.40-6.50); %Basophils 0.2 % (0.0-1.0); %Eosinophils 6.6 % (0.0-10.0); %Lymphocytes 14.9 % (21.0-51.0); %Monocytes 10.6 % (0.0-10.0); %Neutrophils 67.8 % (42.0-75.0); Hemoglobin 13.7 g/dL (14.0-18.0); Mean Corpuscular Hemoglobin 31.8 pg (27.0-31.0); Mean Corpuscular Volume 90.6 fl (78.0-98.0); Mean Platelet Volume 8.5 fL (7.4-10.4); Platelet Count 156 10x3/uL (130-400); RBC Distribution Width 13.8 % (11.5-14.5); Red Blood Cell (RBC) Count 4.33 mill/uL (4.70-6.10); White Blood Cell (WBC) Count 7.1 10x3/uL (4.8-10.8)
[2022-07-17 15:13] LABS: ALT (SGPT) Less than 7 U/L (8-55); AST (SGOT) 12 U/L (5-34); Albumin 3.8 g/dL (3.5-5.0); Alkaline Phosphatase 60 U/L (40-110); Anion Gap 17 mmol/L (10-20); BUN (Urea Nitrogen) 22 mg/dL (8.4-25.7); Bilirubin, Total 0.7 mg/dL (0.2-1.2); Calc. Creatinine Clearance 0 mL/min (70-130); Calcium 9.9 mg/dL (7.8-10.44); Carbon Dioxide 27 mmol/L (22-29); Chloride 93 mmol/L (98-107); Estimated GFR 12; Globulin 5.1 g/dL (2.4-3.5); Glucose 126 mg/dL (70-105); Potassium 3.8 mmol/L (3.5-5.1); Protein, Total 8.9 g/dL (6.0-8.3); Sodium 133 mmol/L (136-145)
[2022-07-17] MEDS ORDERED: Cefepime 2 GM VIAL ONE (19:20)
[2022-07-17] MEDS ORDERED: Ondansetron PF 4 MG/2 ML Vial IVP PRN (19:24)
[2022-07-17 19:30] LABS: INR-International Normal Ratio 1.1; Prothrombin Time 14.9 sec (12.0-14.7)
[2022-07-17] MEDS ORDERED: Heparin 10,000 UNITS/ 10 ML VIAL ONE (19:37)
[2022-07-17] MEDS ORDERED: Heparin 25,000 units/D5W 500 ML ONE (19:37)
[2022-07-17] MEDS ORDERED: Vancomycin 1 GM/200 ML (FROZEN) BAG ONE (20:14)
[2022-07-17] MEDS ORDERED: Morphine 2 MG/ML VIAL SLOW IVP PRN (21:58)
[2022-07-17 21:59] VITALS: BMI 25.4
[2022-07-17] MEDS ORDERED: Fentanyl 100 MCG/2 ML VIAL SLOW IVP PRN (22:00)
[2022-07-17] MEDS ORDERED: Heparin 10,000 UNITS/ 10 ML VIAL SLOW IVP SCH (22:15)
[2022-07-17] MEDS ORDERED: Heparin 25,000 units/D5W 500 ML IVPB SCH (22:15)
[2022-07-17] MEDS ORDERED: HYDROcodone/Acetaminophen 5/325 mg Tablet PO SCH (22:30)
[2022-07-17] MEDS ORDERED: Cefepime 1 GM in Sodium Chloride 0.9% 100 ML IVPB SCH (23:15)
[2022-07-17] MEDS ORDERED: Vancomycin Diaylsis Sliding Scale (Wt 71-99) FS SCH (23:30)
[2022-07-17] MEDS ORDERED: Vancomycin HCl 500 MG in Sodium Chloride 0.9% 100 ML IVPB SCH (23:59)
[2022-07-18 01:56] LABS: #Basophils 0.1 thou/uL (0.0-0.2); #Eosinphils 0.5 thou/uL (0.0-0.7); #Lymphocytes 1.1 thou/uL (1.20-3.40); #Monocytes 0.7 thou/uL (0.11-0.59); #Neutrophils 4.1 thou/uL (1.40-6.50); %Basophils 1.2 % (0.0-1.0); %Eosinophils 8.1 % (0.0-10.0); %Lymphocytes 16.3 % (21.0-51.0); %Monocytes 11.3 % (0.0-10.0); %Neutrophils 63.1 % (42.0-75.0); Hemoglobin 13.4 g/dL (14.0-18.0); Mean Corpuscular HGB CONC 34.9 g/dL (32.0-36.0); Mean Corpuscular Hemoglobin 31.6 pg (27.0-31.0); Mean Corpuscular Volume 90.7 fl (78.0-98.0); Mean Platelet Volume 8.3 fL (7.4-10.4); Platelet Count 151 10x3/uL (130-400); RBC Distribution Width 13.7 % (11.5-14.5); Red Blood Cell (RBC) Count 4.25 mill/uL (4.70-6.10); White Blood Cell (WBC) Count 6.5 10x3/uL (4.8-10.8)
[2022-07-18 02:06] LABS: INR-International Normal Ratio 1.1
[2022-07-18 02:07] LABS: PTT 39.1 sec (22.9-36.1)
[2022-07-18 02:15] LABS: Hemoglobin A1c 5.2 % (4.0-6.0)
[2022-07-18 02:21] LABS: ALT (SGPT) Less than 7 U/L (8-55); AST (SGOT) 9 U/L (5-34); Albumin 3.5 g/dL (3.5-5.0); Alkaline Phosphatase 55 U/L (40-110); Anion Gap 16 mmol/L (10-20); BUN (Urea Nitrogen) 31 mg/dL (8.4-25.7); Bilirubin, Total 0.7 mg/dL (0.2-1.2); Calc. Creatinine Clearance 14 mL/min (70-130); Calcium 9.8 mg/dL (7.8-10.44); Carbon Dioxide 26 mmol/L (22-29); Cardiac Risk 4.1 (Less than 4.5); Chloride 94 mmol/L (98-107); Cholesterol 144 mg/dl (< 200 Desired); Estimated GFR 9; Globulin 4.8 g/dL (2.4-3.5); Glucose 81 mg/dL (70-105); HDL Cholesterol 35 mg/dL (>60 Neg Risk); LDL Cholesterol, Calculated 98 mg/dL; Potassium 4.1 mmol/L (3.5-5.1); Protein, Total 8.3 g/dL (6.0-8.3); Sodium 132 mmol/L (136-145); Triglycerides 54 mg/dL (Less than 150)
[2022-07-18] MEDS ORDERED: HYDROcodone/Acetaminophen 5/325 mg Tablet PO SCH (02:45)
[2022-07-18] MEDS ORDERED: DORAVIRINE 100 MG PO SCH (09:00)
[2022-07-18] MEDS ORDERED: Non-Formulary Item 1 EACH (Aspirin [Vazalore] 81 MG Capsule) PO SCH (09:00)
[2022-07-18] MEDS ORDERED: Vancomycin 1 GM in Premix Bag 1 BAG IVPB SCH (09:00)
[2022-07-18] MEDS: Amlodipine 10 MG TAB PO SCH (09:47)
[2022-07-18] MEDS: Amiodarone 200 MG TAB PO SCH (09:47)
[2022-07-18] MEDS: Calcium Acetate 667 MG CAP PO SCH (09:47)
[2022-07-18] MEDS: Carvedilol 6.25 MG TAB PO SCH ×2 (09:47→20:20)
[2022-07-18] MEDS: fentaNYL 50 mcg/mL 1 mL Vial SLOW IVP PRN (10:05)
[2022-07-18] MEDS: HYDROmorphone 2 MG TAB PO PRN ×2 (14:55→20:20)
[2022-07-18] MEDS ORDERED: Cefepime 0.5 GM, Admixture Fee 1 EACH in Sodium Chloride 0.9% 100 ML IVPB SCH (20:00)
[2022-07-18] MEDS: Atorvastatin Calcium 40 MG TAB PO SCH (20:20)
[2022-07-18 21:19] LABS: Vancomycin, Random 17.9 ug/mL (See Comment)
[2022-07-18] MEDS: Acetaminophen 325 MG TAB PO PRN (21:49)
[2022-07-19 06:14] LABS: #Basophils 0.1 thou/uL (0.0-0.2); #Eosinphils 0.7 thou/uL (0.0-0.7); #Lymphocytes 1.3 thou/uL (1.20-3.40); #Monocytes 1.1 thou/uL (0.11-0.59); #Neutrophils 4.4 thou/uL (1.40-6.50); %Basophils 1.2 % (0.0-1.0); %Lymphocytes 17.3 % (21.0-51.0); %Monocytes 14.4 % (0.0-10.0); %Neutrophils 58.2 % (42.0-75.0); Hemoglobin 12.6 g/dL (14.0-18.0); Mean Corpuscular HGB CONC 34.2 g/dL (32.0-36.0); Mean Corpuscular Hemoglobin 31.2 pg (27.0-31.0); Mean Corpuscular Volume 91.2 fl (78.0-98.0); Mean Platelet Volume 8.3 fL (7.4-10.4); Platelet Count 157 10x3/uL (130-400); RBC Distribution Width 13.8 % (11.5-14.5); Red Blood Cell (RBC) Count 4.06 mill/uL (4.70-6.10); White Blood Cell (WBC) Count 7.6 10x3/uL (4.8-10.8)
[2022-07-19 06:34] LABS: ALT (SGPT) 8 U/L (8-55); AST (SGOT) 7 U/L (5-34); Albumin 3.5 g/dL (3.5-5.0); Alkaline Phosphatase 51 U/L (40-110); Anion Gap 17 mmol/L (10-20); BUN (Urea Nitrogen) 53 mg/dL (8.4-25.7); Bilirubin, Total 0.6 mg/dL (0.2-1.2); Calc. Creatinine Clearance 10 mL/min (70-130); Carbon Dioxide 25 mmol/L (22-29); Chloride 91 mmol/L (98-107); Estimated GFR 6; Globulin 4.8 g/dL (2.4-3.5); Glucose 68 mg/dL (70-105); Potassium 4.9 mmol/L (3.5-5.1); Protein, Total 8.3 g/dL (6.0-8.3); Sodium 128 mmol/L (136-145)
[2022-07-19] MEDS: Amiodarone 200 MG TAB PO SCH (08:38)
[2022-07-19] MEDS: Carvedilol 6.25 MG TAB PO SCH ×2 (08:39→20:10)
[2022-07-19] MEDS: Calcium Acetate 667 MG CAP PO SCH (08:39)
[2022-07-19] MEDS: Amlodipine 10 MG TAB PO SCH (08:39)
[2022-07-19] MEDS: HYDROmorphone 2 MG TAB PO PRN ×3 (08:40→21:56)
[2022-07-19] MEDS: Aspirin 81 mg Enteric Coated Tablet PO SCH (09:05)
[2022-07-19] MEDS ORDERED: Heparin 10,000 UNITS/ 10 ML VIAL ONE (09:13)
[2022-07-19 10:03] LABS: HBSAg Index 0.18 S/CO (0-0.99); Hep B Core Total Ab Non-Reactive (NonReactive); Hep B Core Total Index 0.15 S/CO (0-0.79); Hep B Surf Ag Non-Reactive S/CO (NonReactive); Hep C IgG Ab Non-Reactive S/CO (NonReactive); Hep C Index 0.19 S/CO (0-0.79)
[2022-07-19 10:09] LABS: HBSAB Concentration 144.14 mIU/mL; Hep B Surf AB Reactive (NonReactive)
[2022-07-19] MEDS: Acetaminophen 325 MG TAB PO PRN ×2 (13:01→20:11)
[2022-07-19] MEDS: Atorvastatin Calcium 40 MG TAB PO SCH (20:11)
[2022-07-19] MEDS ORDERED: Calcium Carbonate 500 MG ChewTAB PO PRN (21:47)
[2022-07-19 21:56] LABS: Hemoglobin 13.2 g/dL (14.0-18.0); Platelet Count 165 10x3/uL (130-400)
[2022-07-20] MEDS: HYDROmorphone 2 MG TAB PO PRN ×2 (04:17→16:30)
[2022-07-20] MEDS ORDERED: Protamine Sulfate 50 MG/5 ML VIAL ONE (06:40)
[2022-07-20] MEDS ORDERED: Heparin 5,000 UNITS/ML VIAL ONE (06:40)
[2022-07-20] MEDS ORDERED: Bupivacaine/Epinephrine 0.25% 30 ML VIAL ONE (06:40)
[2022-07-20] MEDS ORDERED: Midazolam HCl 2 mg/2 ml Vial ONE (07:09)
[2022-07-20] MEDS ORDERED: fentaNYL 50 mcg/mL 1 mL Vial ONE (07:09)
[2022-07-20] MEDS ORDERED: CEFAZOLIN 2 GM VIAL ONE (07:13)
[2022-07-20] MEDS ORDERED: Sodium Chloride 0.9% 100 ML ONE (07:13)
[2022-07-20 07:29] LABS: Vancomycin, Random 11.3 ug/mL (See Comment)
[2022-07-20] MEDS ORDERED: PROPOFOL 200 MG/20 ML VIAL ONE (07:30)
[2022-07-20] MEDS ORDERED: Rocuronium Bromide 10 MG/ML (10ML VIAL) ONE (07:30)
[2022-07-20] MEDS ORDERED: NEOSTIGMINE 3 MG/3 ML SYR 3 MG/3 ML SYRINGE ONE (07:30)
[2022-07-20] MEDS ORDERED: Glycopyrrolate 0.2 MG/ML 5 ML SYRINGE ONE (07:30)
[2022-07-20] MEDS ORDERED: Ondansetron PF 4 MG/2 ML Vial ONE (07:30)
[2022-07-20 07:32] LABS: ALT (SGPT) 8 U/L (8-55); AST (SGOT) 9 U/L (5-34); Alkaline Phosphatase 58 U/L (40-110); Anion Gap 19 mmol/L (10-20); BUN (Urea Nitrogen) 25 mg/dL (8.4-25.7); Bilirubin, Total 0.6 mg/dL (0.2-1.2); Calc. Creatinine Clearance 13 mL/min (70-130); Carbon Dioxide 26 mmol/L (22-29); Chloride 93 mmol/L (98-107); Estimated GFR 9; Globulin 5.6 g/dL (2.4-3.5); Glucose 73 mg/dL (70-105); Potassium 4.4 mmol/L (3.5-5.1); Protein, Total 9.6 g/dL (6.0-8.3); Sodium 134 mmol/L (136-145)
[2022-07-20 07:37] LABS: #Basophils 0.1 thou/uL (0.0-0.2); #Eosinphils 0.6 thou/uL (0.0-0.7); #Lymphocytes 1.2 thou/uL (1.20-3.40); #Monocytes 1.2 thou/uL (0.11-0.59); #Neutrophils 6.2 thou/uL (1.40-6.50); %Basophils 1.1 % (0.0-1.0); %Eosinophils 6.9 % (0.0-10.0); %Lymphocytes 12.9 % (21.0-51.0); %Monocytes 12.9 % (0.0-10.0); %Neutrophils 66.3 % (42.0-75.0); Hemoglobin 14.3 g/dL (14.0-18.0); Mean Corpuscular HGB CONC 33.4 g/dL (32.0-36.0); Mean Corpuscular Hemoglobin 30.7 pg (27.0-31.0); Mean Corpuscular Volume 91.9 fl (78.0-98.0); Mean Platelet Volume 8.5 fL (7.4-10.4); Platelet Count 188 10x3/uL (130-400); RBC Distribution Width 13.9 % (11.5-14.5); Red Blood Cell (RBC) Count 4.66 mill/uL (4.70-6.10); White Blood Cell (WBC) Count 9.3 10x3/uL (4.8-10.8)
[2022-07-20] MEDS: Amiodarone 200 MG TAB PO SCH (08:00)
[2022-07-20] MEDS: Amlodipine 10 MG TAB PO SCH (09:00)
[2022-07-20] MEDS: Aspirin 81 mg Enteric Coated Tablet PO SCH (09:00)
[2022-07-20] MEDS: Calcium Acetate 667 MG CAP PO SCH (09:00)
[2022-07-20] MEDS: Carvedilol 6.25 MG TAB PO SCH ×2 (09:00→20:08)
[2022-07-20] MEDS ORDERED: Vancomycin 1 GM in Premix Bag 1 BAG IVPB SCH (17:00)
[2022-07-20] MEDS: fentaNYL 50 mcg/mL 1 mL Vial SLOW IVP PRN (20:06)
[2022-07-20] MEDS: Atorvastatin Calcium 40 MG TAB PO SCH (20:08)
[2022-07-21] MEDS: HYDROmorphone 2 MG TAB PO PRN ×2 (00:59→08:40)
[2022-07-21 06:15] LABS: #Basophils 0.1 thou/uL (0.0-0.2); #Eosinphils 0.7 thou/uL (0.0-0.7); #Monocytes 1.3 thou/uL (0.11-0.59); #Neutrophils 6.2 thou/uL (1.40-6.50); %Basophils 1.2 % (0.0-1.0); %Eosinophils 7.4 % (0.0-10.0); %Lymphocytes 12.3 % (21.0-51.0); %Monocytes 13.2 % (0.0-10.0); %Neutrophils 65.6 % (42.0-75.0); Hemoglobin 12.8 g/dL (14.0-18.0); Mean Corpuscular HGB CONC 33.8 g/dL (32.0-36.0); Mean Corpuscular Hemoglobin 29.6 pg (27.0-31.0); Mean Corpuscular Volume 87.5 fl (78.0-98.0); Mean Platelet Volume 9.9 fL (7.4-10.4); Platelet Count 192 10x3/uL (130-400); RBC Distribution Width 13.9 % (11.5-14.5); Red Blood Cell (RBC) Count 4.33 mill/uL (4.70-6.10); White Blood Cell (WBC) Count 9.4 10x3/uL (4.8-10.8)
[2022-07-21 06:35] LABS: ALT (SGPT) Less than 7 U/L (8-55); AST (SGOT) 10 U/L (5-34); Albumin 3.6 g/dL (3.5-5.0); Alkaline Phosphatase 54 U/L (40-110); Anion Gap 19 mmol/L (10-20); BUN (Urea Nitrogen) 37 mg/dL (8.4-25.7); Bilirubin, Total 0.6 mg/dL (0.2-1.2); Calc. Creatinine Clearance 10 mL/min (70-130); Calcium 10.2 mg/dL (7.8-10.44); Carbon Dioxide 26 mmol/L (22-29); Chloride 92 mmol/L (98-107); Estimated GFR 6; Globulin 5.1 g/dL (2.4-3.5); Glucose 77 mg/dL (70-105); Potassium 4.7 mmol/L (3.5-5.1); Protein, Total 8.7 g/dL (6.0-8.3); Sodium 132 mmol/L (136-145)
[2022-07-21] MEDS: Amiodarone 200 MG TAB PO SCH (08:40)
[2022-07-21] MEDS: Amlodipine 10 MG TAB PO SCH (08:40)
[2022-07-21] MEDS: Carvedilol 6.25 MG TAB PO SCH (08:40)
[2022-07-21] MEDS: Aspirin 81 mg Enteric Coated Tablet PO SCH (08:41)
[2022-07-21] MEDS: Calcium Acetate 667 MG CAP PO SCH (08:41)
[2022-07-21 16:15] VITALS: TEMP 97.6
[2022-07-21 18:57] VITALS: BP 133/81
== END 2022-07-21 19:00 | disposition home or self-care (01) | DRG 252 ==
LOC: ERS 13:31 → T4-B 19:24 → OBSVTOIN 07-19 15:20
PROVIDERS: ADMIT Emergency Medicine; ATTEND Emergency Medicine
PROC: 5A1D70Z Performance of Urinary Filtration, Intermittent, Less than 6 Hours Per Day (ICD-10-PCS; 2022-07-15)
PROC: 04CL0ZZ Extirpation of Matter from Left Femoral Artery, Open Approach (ICD-10-PCS; principal; 2022-07-20)
PROC: 04UL0KZ Supplement Left Femoral Artery with Nonautologous Tissue Substitute, Open Approach (ICD-10-PCS; 2022-07-20)
DX: I70.222 Atherosclerosis of native arteries of extremities with rest pain, left leg (principal); N18.6 End stage renal disease; I50.22 Chronic systolic (congestive) heart failure; I13.2 Hypertensive heart and chronic kidney disease with heart failure and with stage 5 chronic kidney disease, or end stage renal disease; E87.1 Hypo-osmolality and hyponatremia; D63.1 Anemia in chronic kidney disease; K21.9 Gastro-esophageal reflux disease without esophagitis; I25.5 Ischemic cardiomyopathy; I25.10 Atherosclerotic heart disease of native coronary artery without angina pectoris; Z21 Asymptomatic human immunodeficiency virus [HIV] infection status; Z95.5 Presence of coronary angioplasty implant and graft; Z88.2 Allergy status to sulfonamides; Z88.8 Allergy status to other drugs, medicaments and biological substances; Z99.2 Dependence on renal dialysis; Z79.899 Other long term (current) drug therapy; Z87.891 Personal history of nicotine dependence
CPT/HCPCS: 36415; 75635; 80053; 80061; 80202; 83036; 83605; 84145; 85025; 85610; 85730; 86704; 86850; 86900; 86901; 86922; 87040; 90935; 93923; 96366; 96367; 96375; 96376; 97139; C1768; G0257; G0378; J0692; J1644; J2250; J2405; J2704; J2720; J3010; J3370; J3370-JW; J3490; Q9967

== ENCOUNTER 2022-10-29 15:41 | Emergency (ER) | payer MEDICARE, SELFPAY ==
[2022-10-29 16:23] LABS: #Basophils 0.1 thou/uL (0.0-0.2); #Eosinphils 1.1 thou/uL (0.0-0.7); #Monocytes 0.7 thou/uL (0.11-0.59); #Neutrophils 2.4 thou/uL (1.40-6.50); %Basophils 1.4 % (0.0-1.0); %Eosinophils 20.7 % (0.0-10.0); %Lymphocytes 16.9 % (21.0-51.0); %Monocytes 13.4 % (0.0-10.0); %Neutrophils 47.2 % (42.0-75.0); Hematocrit 30.9 % (42.0-52.0); Hemoglobin 10.7 g/dL (14.0-18.0); Mean Corpuscular HGB CONC 34.6 g/dL (32.0-36.0); Mean Corpuscular Hemoglobin 28.2 pg (27.0-31.0); Mean Corpuscular Volume 81.5 fl (78.0-98.0); Mean Platelet Volume 9.7 fL (7.4-10.4); Platelet Count 139 10x3/uL (130-400); RBC Distribution Width 16.9 % (11.5-14.5); Red Blood Cell (RBC) Count 3.79 mill/uL (4.70-6.10); White Blood Cell (WBC) Count 5.1 10x3/uL (4.8-10.8)
[2022-10-29 16:52] LABS: Troponin I 0.062 ng/mL (< 0.028)
[2022-10-29 16:54] LABS: ALT (SGPT) Less than 7 U/L (8-55); AST (SGOT) 8 U/L (5-34); Albumin 3.2 g/dL (3.5-5.0); Alkaline Phosphatase 78 U/L (40-110); Anion Gap 14 mmol/L (10-20); BUN (Urea Nitrogen) 23 mg/dL (8.4-25.7); Bilirubin, Total 0.7 mg/dL (0.2-1.2); Calc. Creatinine Clearance 0 mL/min (70-130); Carbon Dioxide 26 mmol/L (22-29); Chloride 97 mmol/L (98-107); Estimated GFR 10; Globulin 4.5 g/dL (2.4-3.5); Glucose 90 mg/dL (70-105); Potassium 3.8 mmol/L (3.5-5.1); Protein, Total 7.7 g/dL (6.0-8.3); Sodium 133 mmol/L (136-145)
[2022-10-29] MEDS ORDERED: Ketorolac Tromethamine 30 MG/ML VIAL ONE (17:12)
== END 2022-10-29 17:25 | disposition home or self-care (01) ==
LOC: ERS 15:41
DX: M54.50 Low back pain, unspecified (principal); I10 Essential (primary) hypertension; Z87.891 Personal history of nicotine dependence; Z79.82 Long term (current) use of aspirin
CPT/HCPCS: 36415; 71045; 80053; 83880; 84484; 85025; 96372; J1885

== ENCOUNTER 2022-10-31 05:47 | Inpatient (IN) | payer MEDICARE, SELFPAY ==
[2022-10-31 06:45] LABS: #Basophils 0.1 thou/uL (0.0-0.2); #Eosinphils 0.3 thou/uL (0.0-0.7); #Monocytes 0.1 thou/uL (0.11-0.59); #Neutrophils 6.4 thou/uL (1.40-6.50); %Basophils 0.8 % (0.0-1.0); %Eosinophils 3.6 % (0.0-10.0); %Lymphocytes 5.3 % (21.0-51.0); %Monocytes 1.1 % (0.0-10.0); %Neutrophils 88.8 % (42.0-75.0); Hematocrit 34.8 % (42.0-52.0); Hemoglobin 11.7 g/dL (14.0-18.0); Mean Corpuscular HGB CONC 33.6 g/dL (32.0-36.0); Mean Corpuscular Hemoglobin 28.1 pg (27.0-31.0); Mean Corpuscular Volume 83.5 fl (78.0-98.0); Mean Platelet Volume 10.1 fL (7.4-10.4); Platelet Count 144 10x3/uL (130-400); RBC Distribution Width 17.1 % (11.5-14.5); Red Blood Cell (RBC) Count 4.17 mill/uL (4.70-6.10); White Blood Cell (WBC) Count 7.2 10x3/uL (4.8-10.8)
[2022-10-31 07:07] LABS: ALT (SGPT) Less than 7 U/L (8-55); AST (SGOT) 10 U/L (5-34); Albumin 3.5 g/dL (3.5-5.0); Alkaline Phosphatase 84 U/L (40-110); Anion Gap 19 mmol/L (10-20); BUN (Urea Nitrogen) 15 mg/dL (8.4-25.7); Calc. Creatinine Clearance 0 mL/min (70-130); Calcium 9.7 mg/dL (7.8-10.44); Carbon Dioxide 23 mmol/L (22-29); Chloride 99 mmol/L (98-107); Estimated GFR 12; Globulin 5.3 g/dL (2.4-3.5); Glucose 104 mg/dL (70-105); Protein, Total 8.8 g/dL (6.0-8.3); Sodium 137 mmol/L (136-145)
[2022-10-31] MEDS ORDERED: Piperacillin/Tazobactam 4.5 GM VIAL ONE (07:19)
[2022-10-31] MEDS ORDERED: Acetaminophen 500 MG TAB ONE (07:19)
[2022-10-31 07:43] LABS: SARS-CoV-2 NAA Rapid Test Not Detected (NotDetected)
[2022-10-31] MEDS ORDERED: Vancomycin 500 MG VIAL (PEDI) ONE (08:19)
[2022-10-31] MEDS ORDERED: Vancomycin 1 GM/200 ML (FROZEN) BAG ONE (08:20)
[2022-10-31] MEDS ORDERED: Ondansetron PF 4 MG/2 ML Vial ONE (09:18)
[2022-10-31] MEDS ORDERED: NOREPINEPHRINE 8 MG/250 ML-D5W 250 ML ONE (09:48)
[2022-10-31] MEDS ORDERED: NOREPINEPHRINE 8 MG/250 ML-D5W 250 ML IVPB PRN (09:55)
[2022-10-31 12:03] LABS: Lactic Acid 2.6 mmol/L (0.5-2.2)
[2022-10-31] MEDS ORDERED: Piperacillin/Tazobactam 4.5 GM in Sodium Chloride 0.9% 100 ML IVPB SCH (13:45)
[2022-10-31] MEDS ORDERED: Lactated Ringer's 1,000 ML IV SCH (13:45)
[2022-10-31] MEDS ORDERED: Vancomycin HCl 500 MG in Sodium Chloride 0.9% 100 ML IVPB SCH (14:00)
[2022-10-31] MEDS ORDERED: Vancomycin Diaylsis Sliding Scale (Wt 71-99) FS SCH (14:00)
[2022-10-31] MEDS ORDERED: Polyethylene Glycol OPTH DROP 15 ML BOT EA EYE PRN (14:28)
[2022-10-31] MEDS: Heparin 5,000 UNITS/ML VIAL SC SCH ×2 (16:37→21:15)
[2022-10-31] MEDS: Piperacillin/Tazobactam 3.375 GM in Sodium Chloride 0.9% 100 ML IVPB SCH (16:37)
[2022-10-31] MEDS ORDERED: Vancomycin 1 GM in Premix Bag 1 BAG IVPB SCH (21:00)
[2022-10-31] MEDS: Gabapentin 100 MG CAP PO SCH (21:14)
[2022-10-31] MEDS: Atorvastatin Calcium 40 MG TAB PO SCH (21:14)
[2022-10-31] MEDS ORDERED: Lactated Ringer's 500 ML IV SCH (22:45)
[2022-11-01] MEDS ORDERED: Lactated Ringer's 500 ML IV SCH (01:00)
[2022-11-01] MEDS: Piperacillin/Tazobactam 3.375 GM in Sodium Chloride 0.9% 100 ML IVPB SCH ×2 (03:59→15:51)
[2022-11-01 05:41] LABS: #Basophils 0.1 thou/uL (0.0-0.2); #Eosinphils 0.5 thou/uL (0.0-0.7); #Neutrophils 7.3 thou/uL (1.40-6.50); %Basophils 1.2 % (0.0-1.0); %Eosinophils 4.7 % (0.0-10.0); %Lymphocytes 8.6 % (21.0-51.0); Hematocrit 31.1 % (42.0-52.0); Hemoglobin 10.5 g/dL (14.0-18.0); Mean Corpuscular HGB CONC 33.8 g/dL (32.0-36.0); Mean Corpuscular Hemoglobin 27.6 pg (27.0-31.0); Mean Corpuscular Volume 81.6 fl (78.0-98.0); Mean Platelet Volume 10.4 fL (7.4-10.4); Platelet Count 121 10x3/uL (130-400); RBC Distribution Width 17.1 % (11.5-14.5); Red Blood Cell (RBC) Count 3.81 mill/uL (4.70-6.10); White Blood Cell (WBC) Count 9.7 10x3/uL (4.8-10.8)
[2022-11-01 06:07] LABS: ALT (SGPT) 44 U/L (8-55); AST (SGOT) 75 U/L (5-34); Albumin 2.9 g/dL (3.5-5.0); Alkaline Phosphatase 76 U/L (40-110); Anion Gap 15 mmol/L (10-20); BUN (Urea Nitrogen) 27 mg/dL (8.4-25.7); Bilirubin, Total 0.7 mg/dL (0.2-1.2); Calc. Creatinine Clearance 13 mL/min (70-130); Carbon Dioxide 25 mmol/L (22-29); Chloride 97 mmol/L (98-107); Estimated GFR 10; Globulin 4.4 g/dL (2.4-3.5); Glucose 86 mg/dL (70-105); Potassium 4.7 mmol/L (3.5-5.1); Protein, Total 7.3 g/dL (6.0-8.3); Sodium 132 mmol/L (136-145)
[2022-11-01] MEDS: Heparin 5,000 UNITS/ML VIAL SC SCH ×3 (09:15→21:09)
[2022-11-01] MEDS ORDERED: Electrolyte Replacement Protocol 1 EACH FS SCH (09:45)
[2022-11-01] MEDS: Gabapentin 100 MG CAP PO SCH ×2 (15:52→21:08)
[2022-11-01] MEDS: Epoetin (ESRD) 10,000 UNITS/ML VIAL IVP SCH (15:52)
[2022-11-01] MEDS: Acetaminophen 500 MG TAB PO PRN ×2 (15:52→21:08)
[2022-11-01] MEDS: Aspirin 81 mg Enteric Coated Tablet PO SCH (15:53)
[2022-11-01] MEDS: Calcium Acetate 667 MG CAP PO SCH (15:53)
[2022-11-01] MEDS: Atorvastatin Calcium 40 MG TAB PO SCH (21:08)
[2022-11-02 04:33] LABS: #Basophils 0.1 thou/uL (0.0-0.2); #Eosinphils 1.2 thou/uL (0.0-0.7); #Monocytes 0.9 thou/uL (0.11-0.59); #Neutrophils 3.9 thou/uL (1.40-6.50); %Basophils 1.7 % (0.0-1.0); %Eosinophils 17.2 % (0.0-10.0); %Monocytes 12.2 % (0.0-10.0); %Neutrophils 53.6 % (42.0-75.0); Hematocrit 29.6 % (42.0-52.0); Hemoglobin 9.9 g/dL (14.0-18.0); Mean Corpuscular HGB CONC 33.4 g/dL (32.0-36.0); Mean Corpuscular Hemoglobin 27.7 pg (27.0-31.0); Mean Corpuscular Volume 82.7 fl (78.0-98.0); RBC Distribution Width 16.7 % (11.5-14.5); Red Blood Cell (RBC) Count 3.58 mill/uL (4.70-6.10); White Blood Cell (WBC) Count 7.2 10x3/uL (4.8-10.8)
[2022-11-02 04:38] LABS: Platelet Count 115 10x3/uL (130-400)
[2022-11-02 05:07] LABS: ALT (SGPT) 51 U/L (8-55); AST (SGOT) 51 U/L (5-34); Albumin 2.8 g/dL (3.5-5.0); Alkaline Phosphatase 92 U/L (40-110); Anion Gap 13 mmol/L (10-20); BUN (Urea Nitrogen) 41 mg/dL (8.4-25.7); Bilirubin, Total 0.5 mg/dL (0.2-1.2); Calc. Creatinine Clearance 11 mL/min (70-130); Calcium 9.1 mg/dL (7.8-10.44); Carbon Dioxide 25 mmol/L (22-29); Chloride 97 mmol/L (98-107); Estimated GFR 8; Globulin 4.3 g/dL (2.4-3.5); Glucose 85 mg/dL (70-105); Potassium 4.9 mmol/L (3.5-5.1); Protein, Total 7.1 g/dL (6.0-8.3); Sodium 130 mmol/L (136-145)
[2022-11-02 08:02] LABS: Vancomycin, Random 15.5 ug/mL (See Comment)
[2022-11-02] MEDS: Calcium Acetate 667 MG CAP PO SCH (08:55)
[2022-11-02] MEDS: Gabapentin 100 MG CAP PO SCH ×2 (08:55→20:46)
[2022-11-02] MEDS: Heparin 5,000 UNITS/ML VIAL SC SCH ×3 (08:56→20:46)
[2022-11-02] MEDS: Aspirin 81 mg Enteric Coated Tablet PO SCH (08:56)
[2022-11-02] MEDS ORDERED: Heparin 10,000 UNITS/ 10 ML VIAL ONE (10:22)
[2022-11-02] MEDS: Albumin 25% 25 GM/100 ML BOT IVPB SCH ×3 (11:26→23:18)
[2022-11-02] MEDS ORDERED: Vancomycin 1 GM in Premix Bag 1 BAG IVPB SCH (17:00)
[2022-11-02] MEDS: Acetaminophen 500 MG TAB PO PRN (18:34)
[2022-11-02] MEDS: Darunavir/Cobicistat [Prezcobix 800 Mg-150 Mg Tablet] PO SCH ×2 (19:46→19:47)
[2022-11-02] MEDS: DORAVIRINE 100 MG PO SCH ×2 (19:46→19:47)
[2022-11-02] MEDS: Atorvastatin Calcium 40 MG TAB PO SCH (20:46)
[2022-11-03] MEDS: Acetaminophen 500 MG TAB PO PRN (01:47)
[2022-11-03 04:25] LABS: #Basophils 0.1 thou/uL (0.0-0.2); #Monocytes 0.6 thou/uL (0.11-0.59); %Basophils 1.3 % (0.0-1.0); %Eosinophils 17.6 % (0.0-10.0); %Monocytes 11.4 % (0.0-10.0); %Neutrophils 54.3 % (42.0-75.0); Hematocrit 27.4 % (42.0-52.0); Hemoglobin 9.2 g/dL (14.0-18.0); Mean Corpuscular HGB CONC 33.6 g/dL (32.0-36.0); Mean Corpuscular Hemoglobin 27.7 pg (27.0-31.0); Mean Corpuscular Volume 82.5 fl (78.0-98.0); Platelet Count 111 10x3/uL (130-400); RBC Distribution Width 16.7 % (11.5-14.5); Red Blood Cell (RBC) Count 3.32 mill/uL (4.70-6.10); White Blood Cell (WBC) Count 5.5 10x3/uL (4.8-10.8)
[2022-11-03 04:46] LABS: ALT (SGPT) 52 U/L (8-55); AST (SGOT) 49 U/L (5-34); Albumin 3.4 g/dL (3.5-5.0); Alkaline Phosphatase 135 U/L (40-110); Anion Gap 14 mmol/L (10-20); BUN (Urea Nitrogen) 22 mg/dL (8.4-25.7); Bilirubin, Total 0.5 mg/dL (0.2-1.2); Calc. Creatinine Clearance 16 mL/min (70-130); Calcium 9.2 mg/dL (7.8-10.44); Carbon Dioxide 28 mmol/L (22-29); Chloride 95 mmol/L (98-107); Estimated GFR 12; Globulin 4.2 g/dL (2.4-3.5); Glucose 99 mg/dL (70-105); Protein, Total 7.6 g/dL (6.0-8.3); Sodium 133 mmol/L (136-145)
[2022-11-03] MEDS: Calcium Carbonate 500 MG ChewTAB PO PRN (05:09)
[2022-11-03] MEDS: Albumin 25% 25 GM/100 ML BOT IVPB SCH (05:09)
[2022-11-03] MEDS: Heparin 5,000 UNITS/ML VIAL SC SCH ×3 (08:30→20:00)
[2022-11-03] MEDS ORDERED: Ketamine 50 MG/ML (10ML VIAL) ONE (12:25)
[2022-11-03] MEDS ORDERED: PROPOFOL 200 MG/20 ML VIAL ONE (12:34)
[2022-11-03] MEDS: Darunavir/Cobicistat [Prezcobix 800 Mg-150 Mg Tablet] PO SCH (14:23)
[2022-11-03] MEDS: Calcium Acetate 667 MG CAP PO SCH (14:24)
[2022-11-03] MEDS: DORAVIRINE 100 MG PO SCH (14:24)
[2022-11-03] MEDS: Gabapentin 100 MG CAP PO SCH ×2 (14:24→20:04)
[2022-11-03] MEDS: Aspirin 81 mg Enteric Coated Tablet PO SCH (14:25)
[2022-11-03] MEDS ORDERED: Lidocaine 1% MPF 2 ML VIAL ONE (14:41)
[2022-11-03] MEDS: Atorvastatin Calcium 40 MG TAB PO SCH (19:59)
[2022-11-04 04:43] LABS: #Basophils 0.1 thou/uL (0.0-0.2); #Eosinphils 0.9 thou/uL (0.0-0.7); #Monocytes 0.5 thou/uL (0.11-0.59); #Neutrophils 3.6 thou/uL (1.40-6.50); %Basophils 1.2 % (0.0-1.0); %Eosinophils 14.3 % (0.0-10.0); %Monocytes 8.7 % (0.0-10.0); %Neutrophils 59.3 % (42.0-75.0); Hematocrit 30.1 % (42.0-52.0); Hemoglobin 10.2 g/dL (14.0-18.0); Mean Corpuscular HGB CONC 33.9 g/dL (32.0-36.0); Mean Corpuscular Hemoglobin 27.4 pg (27.0-31.0); Mean Corpuscular Volume 80.9 fl (78.0-98.0); Platelet Count 132 10x3/uL (130-400); RBC Distribution Width 16.9 % (11.5-14.5); Red Blood Cell (RBC) Count 3.72 mill/uL (4.70-6.10)
[2022-11-04 05:05] LABS: ALT (SGPT) 54 U/L (8-55); AST (SGOT) 40 U/L (5-34); Albumin 3.4 g/dL (3.5-5.0); Alkaline Phosphatase 155 U/L (40-110); Anion Gap 17 mmol/L (10-20); BUN (Urea Nitrogen) 29 mg/dL (8.4-25.7); Bilirubin, Total 0.6 mg/dL (0.2-1.2); Calc. Creatinine Clearance 13 mL/min (70-130); Calcium 9.3 mg/dL (7.8-10.44); Carbon Dioxide 24 mmol/L (22-29); Chloride 97 mmol/L (98-107); Estimated GFR 9; Globulin 4.5 g/dL (2.4-3.5); Glucose 92 mg/dL (70-105); Potassium 4.5 mmol/L (3.5-5.1); Protein, Total 7.9 g/dL (6.0-8.3); Sodium 133 mmol/L (136-145)
[2022-11-04 07:33] LABS: Vancomycin, Random 21.7 ug/mL (See Comment)
[2022-11-04] MEDS: Acetaminophen 500 MG TAB PO PRN ×2 (08:43→17:49)
[2022-11-04] MEDS: Aspirin 81 mg Enteric Coated Tablet PO SCH (10:39)
[2022-11-04] MEDS: Gabapentin 100 MG CAP PO SCH ×2 (10:39→19:43)
[2022-11-04] MEDS: Heparin 5,000 UNITS/ML VIAL SC SCH ×3 (10:41→19:43)
[2022-11-04] MEDS: Darunavir/Cobicistat [Prezcobix 800 Mg-150 Mg Tablet] PO SCH (10:47)
[2022-11-04] MEDS: DORAVIRINE 100 MG PO SCH (10:48)
[2022-11-04] MEDS: Calcium Acetate 667 MG CAP PO SCH (11:05)
[2022-11-04] MEDS ORDERED: Heparin 10,000 UNITS/ 10 ML VIAL ONE (15:31)
[2022-11-04] MEDS ORDERED: Vancomycin HCl 750 MG in Sodium Chloride 0.9% 250 ML 250 ML IVPB SCH (17:00)
[2022-11-04] MEDS: Atorvastatin Calcium 40 MG TAB PO SCH (19:43)
[2022-11-05 04:16] LABS: #Basophils 0.1 thou/uL (0.0-0.2); #Eosinphils 0.4 thou/uL (0.0-0.7); #Monocytes 1.1 thou/uL (0.11-0.59); #Neutrophils 7.7 thou/uL (1.40-6.50); %Basophils 0.8 % (0.0-1.0); %Eosinophils 3.5 % (0.0-10.0); %Lymphocytes 10.9 % (21.0-51.0); %Monocytes 10.8 % (0.0-10.0); %Neutrophils 73.5 % (42.0-75.0); Hematocrit 29.9 % (42.0-52.0); Hemoglobin 10.3 g/dL (14.0-18.0); Mean Corpuscular HGB CONC 34.4 g/dL (32.0-36.0); Mean Corpuscular Hemoglobin 27.6 pg (27.0-31.0); Mean Corpuscular Volume 80.2 fl (78.0-98.0); Mean Platelet Volume 10.8 fL (7.4-10.4); Platelet Count 124 10x3/uL (130-400); RBC Distribution Width 16.9 % (11.5-14.5); Red Blood Cell (RBC) Count 3.73 mill/uL (4.70-6.10); White Blood Cell (WBC) Count 10.5 10x3/uL (4.8-10.8)
[2022-11-05 04:45] LABS: ALT (SGPT) 69 U/L (8-55); AST (SGOT) 61 U/L (5-34); Albumin 3.3 g/dL (3.5-5.0); Alkaline Phosphatase 176 U/L (40-110); Anion Gap 16 mmol/L (10-20); BUN (Urea Nitrogen) 23 mg/dL (8.4-25.7); Bilirubin, Total 0.9 mg/dL (0.2-1.2); Calc. Creatinine Clearance 14 mL/min (70-130); Calcium 9.2 mg/dL (7.8-10.44); Carbon Dioxide 25 mmol/L (22-29); Chloride 95 mmol/L (98-107); Estimated GFR 10; Globulin 4.7 g/dL (2.4-3.5); Glucose 75 mg/dL (70-105); Potassium 4.1 mmol/L (3.5-5.1); Sodium 132 mmol/L (136-145)
[2022-11-05] MEDS: DORAVIRINE 100 MG PO SCH (09:42)
[2022-11-05] MEDS: Darunavir/Cobicistat [Prezcobix 800 Mg-150 Mg Tablet] PO SCH (09:42)
[2022-11-05] MEDS: Heparin 5,000 UNITS/ML VIAL SC SCH ×3 (09:43→19:52)
[2022-11-05] MEDS: Aspirin 81 mg Enteric Coated Tablet PO SCH (09:43)
[2022-11-05] MEDS: Gabapentin 100 MG CAP PO SCH ×2 (09:43→19:51)
[2022-11-05] MEDS: Calcium Acetate 667 MG CAP PO SCH (09:43)
[2022-11-05] MEDS: Acetaminophen 500 MG TAB PO PRN (15:41)
[2022-11-05] MEDS: Atorvastatin Calcium 40 MG TAB PO SCH (19:51)
[2022-11-06 05:38] LABS: #Basophils 0.1 thou/uL (0.0-0.2); #Eosinphils 0.6 thou/uL (0.0-0.7); #Monocytes 1.4 thou/uL (0.11-0.59); %Basophils 0.6 % (0.0-1.0); %Eosinophils 5.6 % (0.0-10.0); %Neutrophils 70.2 % (42.0-75.0); Hematocrit 28.3 % (42.0-52.0); Hemoglobin 9.6 g/dL (14.0-18.0); Mean Corpuscular HGB CONC 33.9 g/dL (32.0-36.0); Mean Corpuscular Volume 82.5 fl (78.0-98.0); Mean Platelet Volume 11.3 fL (7.4-10.4); Platelet Count 139 10x3/uL (130-400); RBC Distribution Width 17.4 % (11.5-14.5); Red Blood Cell (RBC) Count 3.43 mill/uL (4.70-6.10); White Blood Cell (WBC) Count 11.4 10x3/uL (4.8-10.8)
[2022-11-06 06:05] LABS: ALT (SGPT) 49 U/L (8-55); AST (SGOT) 33 U/L (5-34); Albumin 3.1 g/dL (3.5-5.0); Alkaline Phosphatase 174 U/L (40-110); Anion Gap 17 mmol/L (10-20); BUN (Urea Nitrogen) 31 mg/dL (8.4-25.7); Bilirubin, Total 0.6 mg/dL (0.2-1.2); Calc. Creatinine Clearance 11 mL/min (70-130); Calcium 9.5 mg/dL (7.8-10.44); Carbon Dioxide 22 mmol/L (22-29); Chloride 96 mmol/L (98-107); Estimated GFR 7; Globulin 4.5 g/dL (2.4-3.5); Glucose 103 mg/dL (70-105); Potassium 4.2 mmol/L (3.5-5.1); Protein, Total 7.6 g/dL (6.0-8.3); Sodium 131 mmol/L (136-145)
[2022-11-06] MEDS ORDERED: Lorazepam 0.5 MG TAB PO SCH (08:06)
[2022-11-06 10:55] LABS: Vancomycin, Random 15.9 ug/mL (See Comment)
[2022-11-06] MEDS ORDERED: Heparin 10,000 UNITS/ 10 ML VIAL ONE (12:36)
[2022-11-06] MEDS ORDERED: Insulin Regular 300 UNITS/3 ML VIAL ONE (13:12)
[2022-11-06] MEDS: Gabapentin 100 MG CAP PO SCH ×2 (13:16→22:40)
[2022-11-06] MEDS: Heparin 5,000 UNITS/ML VIAL SC SCH ×3 (13:16→22:41)
[2022-11-06] MEDS: Calcium Acetate 667 MG CAP PO SCH (13:17)
[2022-11-06] MEDS: Aspirin 81 mg Enteric Coated Tablet PO SCH (13:17)
[2022-11-06] MEDS: Darunavir/Cobicistat [Prezcobix 800 Mg-150 Mg Tablet] PO SCH (13:19)
[2022-11-06] MEDS: DORAVIRINE 100 MG PO SCH (13:20)
[2022-11-06] MEDS: Acetaminophen 500 MG TAB PO PRN (13:35)
[2022-11-06] MEDS ORDERED: Vancomycin HCl 750 MG in Sodium Chloride 0.9% 250 ML 250 ML IVPB SCH (17:00)
[2022-11-06] MEDS ORDERED: Vancomycin 1 GM in Premix Bag 1 BAG IVPB SCH (17:00)
[2022-11-06] MEDS: Atorvastatin Calcium 40 MG TAB PO SCH (22:40)
[2022-11-07 05:42] LABS: #Basophils 0.1 thou/uL (0.0-0.2); #Eosinphils 0.5 thou/uL (0.0-0.7); #Neutrophils 5.7 thou/uL (1.40-6.50); %Basophils 0.6 % (0.0-1.0); %Eosinophils 6.3 % (0.0-10.0); %Lymphocytes 11.1 % (21.0-51.0); %Neutrophils 69.2 % (42.0-75.0); Hematocrit 28.5 % (42.0-52.0); Hemoglobin 9.7 g/dL (14.0-18.0); Mean Corpuscular Hemoglobin 27.7 pg (27.0-31.0); Mean Corpuscular Volume 81.4 fl (78.0-98.0); Mean Platelet Volume 10.1 fL (7.4-10.4); Platelet Count 169 10x3/uL (130-400); RBC Distribution Width 17.2 % (11.5-14.5); White Blood Cell (WBC) Count 8.3 10x3/uL (4.8-10.8)
[2022-11-07 06:07] LABS: ALT (SGPT) 36 U/L (8-55); AST (SGOT) 22 U/L (5-34); Albumin 3.2 g/dL (3.5-5.0); Alkaline Phosphatase 165 U/L (40-110); Anion Gap 14 mmol/L (10-20); BUN (Urea Nitrogen) 18 mg/dL (8.4-25.7); Bilirubin, Total 0.6 mg/dL (0.2-1.2); Calc. Creatinine Clearance 15 mL/min (70-130); Calcium 9.6 mg/dL (7.8-10.44); Carbon Dioxide 27 mmol/L (22-29); Chloride 94 mmol/L (98-107); Estimated GFR 11; Globulin 4.6 g/dL (2.4-3.5); Glucose 83 mg/dL (70-105); Potassium 3.8 mmol/L (3.5-5.1); Protein, Total 7.8 g/dL (6.0-8.3); Sodium 131 mmol/L (136-145)
[2022-11-07] MEDS ORDERED: Lorazepam 0.5 MG TAB PO SCH (07:37)
[2022-11-07] MEDS: Gabapentin 100 MG CAP PO SCH ×2 (09:34→21:04)
[2022-11-07] MEDS: Aspirin 81 mg Enteric Coated Tablet PO SCH (09:34)
[2022-11-07] MEDS: Calcium Acetate 667 MG CAP PO SCH (09:34)
[2022-11-07] MEDS: Heparin 5,000 UNITS/ML VIAL SC SCH ×3 (09:34→21:05)
[2022-11-07] MEDS: DORAVIRINE 100 MG PO SCH (09:34)
[2022-11-07] MEDS: Darunavir/Cobicistat [Prezcobix 800 Mg-150 Mg Tablet] PO SCH (09:35)
[2022-11-07 11:06] LABS: SARS-CoV-2 NAA Rapid Test Not Detected (NotDetected)
[2022-11-07] MEDS: Atorvastatin Calcium 40 MG TAB PO SCH (21:04)
[2022-11-08 04:43] LABS: #Basophils 0.1 thou/uL (0.0-0.2); #Eosinphils 0.7 thou/uL (0.0-0.7); #Monocytes 0.9 thou/uL (0.11-0.59); #Neutrophils 5.5 thou/uL (1.40-6.50); %Basophils 0.8 % (0.0-1.0); %Eosinophils 8.2 % (0.0-10.0); %Lymphocytes 12.9 % (21.0-51.0); %Monocytes 11.4 % (0.0-10.0); %Neutrophils 66.1 % (42.0-75.0); Hematocrit 28.5 % (42.0-52.0); Hemoglobin 9.9 g/dL (14.0-18.0); Mean Corpuscular HGB CONC 34.7 g/dL (32.0-36.0); Mean Corpuscular Hemoglobin 27.9 pg (27.0-31.0); Mean Corpuscular Volume 80.3 fl (78.0-98.0); Mean Platelet Volume 9.9 fL (7.4-10.4); Platelet Count 192 10x3/uL (130-400); RBC Distribution Width 16.8 % (11.5-14.5); Red Blood Cell (RBC) Count 3.55 mill/uL (4.70-6.10); White Blood Cell (WBC) Count 8.3 10x3/uL (4.8-10.8)
[2022-11-08 05:09] LABS: ALT (SGPT) 27 U/L (8-55); AST (SGOT) 18 U/L (5-34); Albumin 3.1 g/dL (3.5-5.0); Alkaline Phosphatase 166 U/L (40-110); Anion Gap 12 mmol/L (10-20); BUN (Urea Nitrogen) 24 mg/dL (8.4-25.7); Bilirubin, Total 0.4 mg/dL (0.2-1.2); Calc. Creatinine Clearance 12 mL/min (70-130); Calcium 9.6 mg/dL (7.8-10.44); Carbon Dioxide 27 mmol/L (22-29); Chloride 93 mmol/L (98-107); Estimated GFR 8; Globulin 4.6 g/dL (2.4-3.5); Glucose 80 mg/dL (70-105); Potassium 3.8 mmol/L (3.5-5.1); Protein, Total 7.7 g/dL (6.0-8.3); Sodium 128 mmol/L (136-145)
[2022-11-08] MEDS: Aspirin 81 mg Enteric Coated Tablet PO SCH (09:42)
[2022-11-08] MEDS: Calcium Acetate 667 MG CAP PO SCH (09:43)
[2022-11-08] MEDS: Gabapentin 100 MG CAP PO SCH ×2 (09:43→20:53)
[2022-11-08] MEDS: Heparin 5,000 UNITS/ML VIAL SC SCH ×3 (09:44→20:53)
[2022-11-08] MEDS: DORAVIRINE 100 MG PO SCH (09:56)
[2022-11-08] MEDS: Darunavir/Cobicistat [Prezcobix 800 Mg-150 Mg Tablet] PO SCH (09:57)
[2022-11-08] MEDS: Epoetin (ESRD) 10,000 UNITS/ML VIAL IVP SCH (13:20)
[2022-11-08] MEDS: Atorvastatin Calcium 40 MG TAB PO SCH (20:53)
[2022-11-09] MEDS ORDERED: Lorazepam 0.5 MG TAB PO SCH (03:00)
[2022-11-09 04:30] LABS: #Basophils 0.1 thou/uL (0.0-0.2); #Eosinphils 0.8 thou/uL (0.0-0.7); #Monocytes 0.9 thou/uL (0.11-0.59); #Neutrophils 5.2 thou/uL (1.40-6.50); %Basophils 0.9 % (0.0-1.0); %Eosinophils 9.6 % (0.0-10.0); %Lymphocytes 12.5 % (21.0-51.0); %Monocytes 11.4 % (0.0-10.0); %Neutrophils 65.1 % (42.0-75.0); Hemoglobin 10.3 g/dL (14.0-18.0); Mean Corpuscular HGB CONC 34.3 g/dL (32.0-36.0); Mean Corpuscular Hemoglobin 27.7 pg (27.0-31.0); Mean Corpuscular Volume 80.6 fl (78.0-98.0); Mean Platelet Volume 10.1 fL (7.4-10.4); Platelet Count 213 10x3/uL (130-400); Red Blood Cell (RBC) Count 3.72 mill/uL (4.70-6.10)
[2022-11-09 05:23] LABS: ALT (SGPT) 23 U/L (8-55); AST (SGOT) 16 U/L (5-34); Albumin 3.2 g/dL (3.5-5.0); Alkaline Phosphatase 161 U/L (40-110); Anion Gap 13 mmol/L (10-20); BUN (Urea Nitrogen) 30 mg/dL (8.4-25.7); Bilirubin, Total 0.4 mg/dL (0.2-1.2); Calc. Creatinine Clearance 10 mL/min (70-130); Calcium 9.5 mg/dL (7.8-10.44); Carbon Dioxide 26 mmol/L (22-29); Chloride 93 mmol/L (98-107); Estimated GFR 7; Globulin 4.8 g/dL (2.4-3.5); Glucose 81 mg/dL (70-105); Potassium 4.2 mmol/L (3.5-5.1); Sodium 128 mmol/L (136-145)
[2022-11-09 08:32] LABS: Vancomycin, Random 25.8 ug/mL (See Comment)
[2022-11-09] MEDS ORDERED: Heparin 10,000 UNITS/ 10 ML VIAL ONE (09:09)
[2022-11-09] MEDS: Heparin 5,000 UNITS/ML VIAL SC SCH ×3 (10:20→21:20)
[2022-11-09] MEDS: DORAVIRINE 100 MG PO SCH (10:21)
[2022-11-09] MEDS: Darunavir/Cobicistat [Prezcobix 800 Mg-150 Mg Tablet] PO SCH (10:21)
[2022-11-09] MEDS: Gabapentin 100 MG CAP PO SCH ×2 (15:44→21:19)
[2022-11-09] MEDS: Aspirin 81 mg Enteric Coated Tablet PO SCH (15:45)
[2022-11-09] MEDS: Calcium Acetate 667 MG CAP PO SCH (15:45)
[2022-11-09] MEDS ORDERED: Vancomycin 250 MG in Sodium Chloride 0.9% 100 ML IVPB SCH (17:00)
[2022-11-09] MEDS: Atorvastatin Calcium 40 MG TAB PO SCH (21:19)
[2022-11-10 07:05] LABS: ALT (SGPT) 20 U/L (8-55); AST (SGOT) 17 U/L (5-34); Albumin 3.1 g/dL (3.5-5.0); Alkaline Phosphatase 146 U/L (40-110); Anion Gap 13 mmol/L (10-20); BUN (Urea Nitrogen) 16 mg/dL (8.4-25.7); Bilirubin, Total 0.5 mg/dL (0.2-1.2); Calc. Creatinine Clearance 14 mL/min (70-130); Calcium 9.5 mg/dL (7.8-10.44); Carbon Dioxide 29 mmol/L (22-29); Chloride 95 mmol/L (98-107); Estimated GFR 11; Globulin 4.9 g/dL (2.4-3.5); Glucose 64 mg/dL (70-105); Potassium 3.9 mmol/L (3.5-5.1); Sodium 133 mmol/L (136-145)
[2022-11-10] MEDS: Calcium Acetate 667 MG CAP PO SCH (08:50)
[2022-11-10] MEDS: Gabapentin 100 MG CAP PO SCH ×2 (08:50→21:02)
[2022-11-10] MEDS: Aspirin 81 mg Enteric Coated Tablet PO SCH (08:51)
[2022-11-10] MEDS: Heparin 5,000 UNITS/ML VIAL SC SCH ×3 (08:52→21:03)
[2022-11-10] MEDS: DORAVIRINE 100 MG PO SCH (09:05)
[2022-11-10] MEDS: Darunavir/Cobicistat [Prezcobix 800 Mg-150 Mg Tablet] PO SCH (09:05)
[2022-11-10] MEDS: Acetaminophen 500 MG TAB PO PRN (13:40)
[2022-11-10] MEDS: Atorvastatin Calcium 40 MG TAB PO SCH (21:02)
[2022-11-11 05:00] LABS: #Basophils 0.1 thou/uL (0.0-0.2); #Neutrophils 5.3 thou/uL (1.40-6.50); %Basophils 1.1 % (0.0-1.0); %Eosinophils 11.7 % (0.0-10.0); %Lymphocytes 11.7 % (21.0-51.0); %Monocytes 11.8 % (0.0-10.0); %Neutrophils 63.1 % (42.0-75.0); Hematocrit 27.4 % (42.0-52.0); Hemoglobin 9.5 g/dL (14.0-18.0); Mean Corpuscular HGB CONC 34.7 g/dL (32.0-36.0); Mean Corpuscular Hemoglobin 27.8 pg (27.0-31.0); Mean Corpuscular Volume 80.1 fl (78.0-98.0); Platelet Count 183 10x3/uL (130-400); RBC Distribution Width 17.2 % (11.5-14.5); Red Blood Cell (RBC) Count 3.42 mill/uL (4.70-6.10); White Blood Cell (WBC) Count 8.4 10x3/uL (4.8-10.8)
[2022-11-11 05:28] LABS: ALT (SGPT) 14 U/L (8-55); AST (SGOT) 14 U/L (5-34); Alkaline Phosphatase 142 U/L (40-110); Anion Gap 14 mmol/L (10-20); BUN (Urea Nitrogen) 22 mg/dL (8.4-25.7); Bilirubin, Total 0.5 mg/dL (0.2-1.2); Calc. Creatinine Clearance 11 mL/min (70-130); Calcium 9.3 mg/dL (7.8-10.44); Carbon Dioxide 25 mmol/L (22-29); Chloride 96 mmol/L (98-107); Estimated GFR 8; Globulin 4.5 g/dL (2.4-3.5); Glucose 75 mg/dL (70-105); Potassium 4.3 mmol/L (3.5-5.1); Protein, Total 7.5 g/dL (6.0-8.3); Sodium 131 mmol/L (136-145)
[2022-11-11 07:40] LABS: Vancomycin, Random 21.8 ug/mL (See Comment)
[2022-11-11] MEDS ORDERED: Heparin 10,000 UNITS/ 10 ML VIAL ONE (08:59)
[2022-11-11] MEDS: Calcium Acetate 667 MG CAP PO SCH (10:20)
[2022-11-11] MEDS: Heparin 5,000 UNITS/ML VIAL SC SCH ×3 (10:21→22:03)
[2022-11-11] MEDS: Aspirin 81 mg Enteric Coated Tablet PO SCH (10:21)
[2022-11-11] MEDS: Gabapentin 100 MG CAP PO SCH ×2 (10:21→22:02)
[2022-11-11] MEDS: Calcium Carbonate 500 MG ChewTAB PO PRN (10:22)
[2022-11-11] MEDS: DORAVIRINE 100 MG PO SCH (10:27)
[2022-11-11] MEDS: Darunavir/Cobicistat [Prezcobix 800 Mg-150 Mg Tablet] PO SCH (10:27)
[2022-11-11 14:13] LABS: %CD4 (Helper/Inducer) 48.3 % (30.8-58.5); Absolute CD4 531 /uL (359-1519); Lymphocytes/Gated Cell Count 1.1 x10E3/uL (0.7-3.1); Total Lymphocyte 12 % (Not Estab.); WBC Total Count 9.1 x10E3/uL (3.4-10.8)
[2022-11-11] MEDS ORDERED: Lidocaine 2% PF 5 ML VIAL ONE (14:14)
[2022-11-11] MEDS ORDERED: Bupivacaine PF 0.5% 30 ML VIAL ONE (14:14)
[2022-11-11] MEDS ORDERED: EPINEPHrine 1 MG/ML AMP ONE (14:14)
[2022-11-11] MEDS ORDERED: fentaNYL 50 mcg/mL 1 mL Vial ONE (14:33)
[2022-11-11] MEDS ORDERED: Midazolam HCl 2 mg/2 ml Vial ONE (14:33)
[2022-11-11] MEDS ORDERED: Sevoflurane 250 ML INH ANEST BOTTLE ONE (14:38)
[2022-11-11] MEDS ORDERED: ePHEDrine Sulfate 50 MG/10 ML VIAL ONE (14:44)
[2022-11-11] MEDS ORDERED: Ondansetron PF 4 MG/2 ML Vial ONE (14:44)
[2022-11-11] MEDS ORDERED: Glycopyrrolate 0.2 MG/ML 5 ML SYRINGE ONE (14:44)
[2022-11-11] MEDS ORDERED: PROPOFOL 200 MG/20 ML VIAL ONE (14:44)
[2022-11-11] MEDS ORDERED: Promethazine HCl 25 MG/ML VIAL IM PRN (15:47)
[2022-11-11] MEDS ORDERED: Ondansetron HCl/PF 4 MG/2 ML Vial IVP PRN (15:47)
[2022-11-11] MEDS ORDERED: Vancomycin 250 MG in Sodium Chloride 0.9% 100 ML IVPB SCH (17:00)
[2022-11-11] MEDS: Acetaminophen 500 MG TAB PO PRN ×2 (18:01→23:21)
[2022-11-11] MEDS: Atorvastatin Calcium 40 MG TAB PO SCH (22:01)
[2022-11-12 05:08] LABS: ALT (SGPT) 14 U/L (8-55); AST (SGOT) 13 U/L (5-34); Alkaline Phosphatase 137 U/L (40-110); Anion Gap 14 mmol/L (10-20); BUN (Urea Nitrogen) 14 mg/dL (8.4-25.7); Bilirubin, Total 0.6 mg/dL (0.2-1.2); Calc. Creatinine Clearance 16 mL/min (70-130); Calcium 9.4 mg/dL (7.8-10.44); Carbon Dioxide 28 mmol/L (22-29); Chloride 95 mmol/L (98-107); Estimated GFR 12; Globulin 4.8 g/dL (2.4-3.5); Glucose 61 mg/dL (70-105); Potassium 4.1 mmol/L (3.5-5.1); Protein, Total 7.8 g/dL (6.0-8.3); Sodium 133 mmol/L (136-145)
[2022-11-12] MEDS: Acetaminophen 500 MG TAB PO PRN (05:30)
[2022-11-12] MEDS ORDERED: traMADol HCl 50 MG TAB PO SCH (08:30)
[2022-11-12] MEDS: Aspirin 81 mg Enteric Coated Tablet PO SCH (09:30)
[2022-11-12] MEDS: Gabapentin 100 MG CAP PO SCH ×2 (09:30→20:07)
[2022-11-12] MEDS: Calcium Acetate 667 MG CAP PO SCH (09:31)
[2022-11-12] MEDS: Heparin 5,000 UNITS/ML VIAL SC SCH ×3 (09:37→20:08)
[2022-11-12] MEDS: Lidocaine 4% Patch TD SCH (09:37)
[2022-11-12] MEDS: DORAVIRINE 100 MG PO SCH (10:48)
[2022-11-12] MEDS: Darunavir/Cobicistat [Prezcobix 800 Mg-150 Mg Tablet] PO SCH (10:48)
[2022-11-12 11:17] LABS: LOG10 HIV-1 RNA 1.845 (.)
[2022-11-12] MEDS: Atorvastatin Calcium 40 MG TAB PO SCH (20:07)
[2022-11-12] MEDS: Transdermal Patch Removal TOP SCH (22:25)
[2022-11-13 04:37] LABS: #Basophils 0.1 thou/uL (0.0-0.2); #Monocytes 0.9 thou/uL (0.11-0.59); #Neutrophils 3.7 thou/uL (1.40-6.50); %Basophils 1.2 % (0.0-1.0); %Lymphocytes 15.2 % (21.0-51.0); %Monocytes 12.9 % (0.0-10.0); %Neutrophils 55.4 % (42.0-75.0); Hematocrit 27.7 % (42.0-52.0); Hemoglobin 9.3 g/dL (14.0-18.0); Mean Corpuscular HGB CONC 33.6 g/dL (32.0-36.0); Mean Corpuscular Hemoglobin 27.5 pg (27.0-31.0); Mean Platelet Volume 10.5 fL (7.4-10.4); Platelet Count 177 10x3/uL (130-400); RBC Distribution Width 17.1 % (11.5-14.5); Red Blood Cell (RBC) Count 3.38 mill/uL (4.70-6.10); White Blood Cell (WBC) Count 6.6 10x3/uL (4.8-10.8)
[2022-11-13 05:03] LABS: ALT (SGPT) 14 U/L (8-55); AST (SGOT) 14 U/L (5-34); Albumin 3.1 g/dL (3.5-5.0); Alkaline Phosphatase 143 U/L (40-110); Anion Gap 15 mmol/L (10-20); BUN (Urea Nitrogen) 23 mg/dL (8.4-25.7); Bilirubin, Total 0.4 mg/dL (0.2-1.2); Calc. Creatinine Clearance 13 mL/min (70-130); Calcium 9.3 mg/dL (7.8-10.44); Carbon Dioxide 27 mmol/L (22-29); Chloride 95 mmol/L (98-107); Estimated GFR 9; Globulin 4.8 g/dL (2.4-3.5); Glucose 85 mg/dL (70-105); Potassium 4.4 mmol/L (3.5-5.1); Protein, Total 7.9 g/dL (6.0-8.3); Sodium 133 mmol/L (136-145)
[2022-11-13 08:11] LABS: Vancomycin, Random 18.6 ug/mL (See Comment)
[2022-11-13] MEDS ORDERED: Heparin 10,000 UNITS/ 10 ML VIAL ONE (12:35)
[2022-11-13] MEDS: Aspirin 81 mg Enteric Coated Tablet PO SCH (14:15)
[2022-11-13] MEDS: Gabapentin 100 MG CAP PO SCH ×2 (14:16→21:16)
[2022-11-13] MEDS: Calcium Acetate 667 MG CAP PO SCH (14:17)
[2022-11-13] MEDS: Heparin 5,000 UNITS/ML VIAL SC SCH ×3 (14:20→21:17)
[2022-11-13] MEDS: Darunavir/Cobicistat [Prezcobix 800 Mg-150 Mg Tablet] PO SCH ×2 (14:20→15:45)
[2022-11-13] MEDS: DORAVIRINE 100 MG PO SCH ×2 (14:20→15:43)
[2022-11-13] MEDS: Lidocaine 4% Patch TD SCH (14:22)
[2022-11-13] MEDS ORDERED: Vancomycin HCl 750 MG in Sodium Chloride 0.9% 250 ML 250 ML IVPB SCH (17:00)
[2022-11-13] MEDS: Acetaminophen 500 MG TAB PO PRN (18:30)
[2022-11-13] MEDS: Atorvastatin Calcium 40 MG TAB PO SCH (21:16)
[2022-11-13] MEDS: Transdermal Patch Removal TOP SCH (21:17)
[2022-11-14] MEDS: Aspirin 81 mg Enteric Coated Tablet PO SCH (08:43)
[2022-11-14] MEDS: Calcium Acetate 667 MG CAP PO SCH (08:43)
[2022-11-14] MEDS: Gabapentin 100 MG CAP PO SCH ×2 (08:43→22:06)
[2022-11-14] MEDS: Lidocaine 4% Patch TD SCH (08:46)
[2022-11-14] MEDS: DORAVIRINE 100 MG PO SCH (08:46)
[2022-11-14] MEDS: Darunavir/Cobicistat [Prezcobix 800 Mg-150 Mg Tablet] PO SCH (08:47)
[2022-11-14] MEDS: Heparin 5,000 UNITS/ML VIAL SC SCH ×3 (08:50→22:08)
[2022-11-14] MEDS: Atorvastatin Calcium 40 MG TAB PO SCH (22:06)
[2022-11-14] MEDS: Transdermal Patch Removal TOP SCH (22:08)
[2022-11-14] MEDS: Acetaminophen 500 MG TAB PO PRN (22:10)
[2022-11-15 05:08] LABS: #Basophils 0.1 thou/uL (0.0-0.2); #Eosinphils 0.8 thou/uL (0.0-0.7); #Monocytes 0.7 thou/uL (0.11-0.59); #Neutrophils 3.2 thou/uL (1.40-6.50); %Basophils 1.6 % (0.0-1.0); %Eosinophils 14.4 % (0.0-10.0); %Lymphocytes 14.9 % (21.0-51.0); %Monocytes 12.8 % (0.0-10.0); %Neutrophils 55.8 % (42.0-75.0); Hematocrit 27.3 % (42.0-52.0); Hemoglobin 9.3 g/dL (14.0-18.0); Mean Corpuscular HGB CONC 34.1 g/dL (32.0-36.0); Mean Corpuscular Hemoglobin 27.4 pg (27.0-31.0); Mean Corpuscular Volume 80.5 fl (78.0-98.0); Mean Platelet Volume 9.9 fL (7.4-10.4); Platelet Count 182 10x3/uL (130-400); RBC Distribution Width 17.2 % (11.5-14.5); Red Blood Cell (RBC) Count 3.39 mill/uL (4.70-6.10); White Blood Cell (WBC) Count 5.8 10x3/uL (4.8-10.8)
[2022-11-15 05:34] LABS: ALT (SGPT) 11 U/L (8-55); AST (SGOT) 11 U/L (5-34); Albumin 3.1 g/dL (3.5-5.0); Alkaline Phosphatase 141 U/L (40-110); Anion Gap 16 mmol/L (10-20); BUN (Urea Nitrogen) 23 mg/dL (8.4-25.7); Bilirubin, Total 0.6 mg/dL (0.2-1.2); Calc. Creatinine Clearance 13 mL/min (70-130); Calcium 9.4 mg/dL (7.8-10.44); Carbon Dioxide 26 mmol/L (22-29); Chloride 97 mmol/L (98-107); Estimated GFR 9; Globulin 4.9 g/dL (2.4-3.5); Glucose 79 mg/dL (70-105); Potassium 4.4 mmol/L (3.5-5.1); Sodium 135 mmol/L (136-145)
[2022-11-15] MEDS: Aspirin 81 mg Enteric Coated Tablet PO SCH (08:47)
[2022-11-15] MEDS: Calcium Acetate 667 MG CAP PO SCH (08:47)
[2022-11-15] MEDS: Gabapentin 100 MG CAP PO SCH ×2 (08:47→21:16)
[2022-11-15] MEDS: Heparin 5,000 UNITS/ML VIAL SC SCH ×3 (08:48→21:16)
[2022-11-15] MEDS: Lidocaine 4% Patch TD SCH (08:48)
[2022-11-15] MEDS: DORAVIRINE 100 MG PO SCH (08:54)
[2022-11-15] MEDS: Darunavir/Cobicistat [Prezcobix 800 Mg-150 Mg Tablet] PO SCH (08:54)
[2022-11-15] MEDS: Epoetin (ESRD) 10,000 UNITS/ML VIAL IVP SCH (13:51)
[2022-11-15] MEDS: Atorvastatin Calcium 40 MG TAB PO SCH (21:15)
[2022-11-15] MEDS: Loperamide HCl 2 MG CAP PO PRN (21:16)
[2022-11-15] MEDS: Transdermal Patch Removal TOP SCH (21:17)
[2022-11-16] MEDS: Loperamide HCl 2 MG CAP PO PRN (05:53)
[2022-11-16] MEDS: Gabapentin 100 MG CAP PO SCH ×2 (10:26→22:09)
[2022-11-16] MEDS: Aspirin 81 mg Enteric Coated Tablet PO SCH (10:26)
[2022-11-16] MEDS: Heparin 5,000 UNITS/ML VIAL SC SCH ×3 (10:26→22:09)
[2022-11-16] MEDS: Calcium Acetate 667 MG CAP PO SCH (10:27)
[2022-11-16] MEDS: Lidocaine 4% Patch TD SCH (10:27)
[2022-11-16] MEDS: DORAVIRINE 100 MG PO SCH (10:27)
[2022-11-16] MEDS: Darunavir/Cobicistat [Prezcobix 800 Mg-150 Mg Tablet] PO SCH (10:27)
[2022-11-16] MEDS ORDERED: Heparin 10,000 UNITS/ 10 ML VIAL ONE (12:32)
[2022-11-16] MEDS ORDERED: Vancomycin HCl 750 MG in Sodium Chloride 0.9% 250 ML 250 ML IVPB SCH (17:00)
[2022-11-16] MEDS ORDERED: Ipratropium/Albuterol 3 ML NEB NEB PRN (18:27)
[2022-11-16] MEDS: Atorvastatin Calcium 40 MG TAB PO SCH (22:09)
[2022-11-16] MEDS: Transdermal Patch Removal TOP SCH (22:10)
[2022-11-17 05:01] LABS: #Basophils 0.1 thou/uL (0.0-0.2); #Eosinphils 0.7 thou/uL (0.0-0.7); #Monocytes 0.6 thou/uL (0.11-0.59); #Neutrophils 2.9 thou/uL (1.40-6.50); %Basophils 2.1 % (0.0-1.0); %Lymphocytes 16.1 % (21.0-51.0); %Neutrophils 56.4 % (42.0-75.0); Hematocrit 27.9 % (42.0-52.0); Hemoglobin 9.5 g/dL (14.0-18.0); Mean Corpuscular HGB CONC 34.1 g/dL (32.0-36.0); Mean Corpuscular Hemoglobin 27.6 pg (27.0-31.0); Mean Corpuscular Volume 81.1 fl (78.0-98.0); Mean Platelet Volume 10.4 fL (7.4-10.4); Platelet Count 202 10x3/uL (130-400); RBC Distribution Width 17.2 % (11.5-14.5); Red Blood Cell (RBC) Count 3.44 mill/uL (4.70-6.10); White Blood Cell (WBC) Count 5.2 10x3/uL (4.8-10.8)
[2022-11-17 05:22] LABS: ALT (SGPT) 8 U/L (8-55); AST (SGOT) 13 U/L (5-34); Albumin 3.1 g/dL (3.5-5.0); Alkaline Phosphatase 136 U/L (40-110); Anion Gap 17 mmol/L (10-20); BUN (Urea Nitrogen) 31 mg/dL (8.4-25.7); Bilirubin, Total 0.6 mg/dL (0.2-1.2); Calc. Creatinine Clearance 12 mL/min (70-130); Calcium 9.4 mg/dL (7.8-10.44); Carbon Dioxide 26 mmol/L (22-29); Chloride 97 mmol/L (98-107); Estimated GFR 8; Glucose 55 mg/dL (70-105); Magnesium 2.1 mg/dL (1.6-2.6); Potassium 4.5 mmol/L (3.5-5.1); Protein, Total 8.1 g/dL (6.0-8.3); Sodium 135 mmol/L (136-145)
[2022-11-17 05:25] LABS: Phosphorus 5.3 mg/dL (2.3-4.7)
[2022-11-17] MEDS: Loperamide HCl 2 MG CAP PO PRN (06:41)
[2022-11-17 11:43] LABS: Vancomycin, Random 15.4 ug/mL (See Comment)
[2022-11-17] MEDS ORDERED: Regadenoson 0.4 MG/5 ML SYRINGE ONE (11:50)
[2022-11-17] MEDS ORDERED: Heparin 10,000 UNITS/ 10 ML VIAL ONE (11:51)
[2022-11-17] MEDS: Lidocaine 4% Patch TD SCH (11:56)
[2022-11-17] MEDS: Heparin 5,000 UNITS/ML VIAL SC SCH ×3 (11:56→22:00)
[2022-11-17] MEDS: Aspirin 81 mg Enteric Coated Tablet PO SCH (12:11)
[2022-11-17] MEDS: Calcium Acetate 667 MG CAP PO SCH (12:11)
[2022-11-17] MEDS: DORAVIRINE 100 MG PO SCH (12:12)
[2022-11-17] MEDS: Darunavir/Cobicistat [Prezcobix 800 Mg-150 Mg Tablet] PO SCH (12:12)
[2022-11-17] MEDS: Gabapentin 100 MG CAP PO SCH (12:15)
[2022-11-17 14:37] VITALS: BMI 25.7
[2022-11-17] MEDS ORDERED: Vancomycin 1 GM in Premix Bag 1 BAG IVPB SCH (17:00)
[2022-11-17] MEDS: Transdermal Patch Removal TOP SCH (22:00)
[2022-11-17] MEDS: Atorvastatin Calcium 40 MG TAB PO SCH (22:00)
[2022-11-18 05:47] LABS: Phosphorus 4.6 mg/dL (2.3-4.7)
[2022-11-18 07:59] LABS: ALT (SGPT) 8 U/L (8-55); AST (SGOT) 12 U/L (5-34); Albumin 3.2 g/dL (3.5-5.0); Alkaline Phosphatase 144 U/L (40-110); Anion Gap 13 mmol/L (10-20); BUN (Urea Nitrogen) 21 mg/dL (8.4-25.7); Bilirubin, Total 0.6 mg/dL (0.2-1.2); Calc. Creatinine Clearance 16 mL/min (70-130); Calcium 9.7 mg/dL (7.8-10.44); Carbon Dioxide 28 mmol/L (22-29); Chloride 96 mmol/L (98-107); Estimated GFR 11; Globulin 5.1 g/dL (2.4-3.5); Glucose 55 mg/dL (70-105); Potassium 4.1 mmol/L (3.5-5.1); Protein, Total 8.3 g/dL (6.0-8.3); Sodium 133 mmol/L (136-145)
[2022-11-18] MEDS ORDERED: Lidocaine 4% Patch TD PRN (08:07)
[2022-11-18] MEDS ORDERED: Heparin 10,000 UNITS/ 10 ML VIAL ONE (09:25)
[2022-11-18] MEDS: Calcium Acetate 667 MG CAP PO SCH (09:56)
[2022-11-18] MEDS: Heparin 5,000 UNITS/ML VIAL SC SCH ×3 (09:57→20:17)
[2022-11-18] MEDS: Aspirin 81 mg Enteric Coated Tablet PO SCH (09:57)
[2022-11-18] MEDS: DORAVIRINE 100 MG PO SCH (12:46)
[2022-11-18] MEDS: Darunavir/Cobicistat [Prezcobix 800 Mg-150 Mg Tablet] PO SCH (12:46)
[2022-11-18] MEDS: Calcium Carbonate 500 MG ChewTAB PO PRN (16:37)
[2022-11-18] MEDS: Transdermal Patch Removal TOP SCH (20:17)
[2022-11-18] MEDS: Atorvastatin Calcium 40 MG TAB PO SCH (20:17)
[2022-11-18] MEDS ORDERED: Gabapentin 100 MG CAP PO SCH (21:00)
[2022-11-19 05:29] LABS: Phosphorus 4.2 mg/dL (2.3-4.7)
[2022-11-19 05:33] LABS: ALT (SGPT) Less than 7 U/L (8-55); AST (SGOT) 13 U/L (5-34); Albumin 3.2 g/dL (3.5-5.0); Alkaline Phosphatase 133 U/L (40-110); Anion Gap 13 mmol/L (10-20); BUN (Urea Nitrogen) 13 mg/dL (8.4-25.7); Bilirubin, Total 0.5 mg/dL (0.2-1.2); Calc. Creatinine Clearance 20 mL/min (70-130); Calcium 9.9 mg/dL (7.8-10.44); Carbon Dioxide 27 mmol/L (22-29); Chloride 95 mmol/L (98-107); Estimated GFR 15; Magnesium 1.9 mg/dL (1.6-2.6); Potassium 3.7 mmol/L (3.5-5.1); Protein, Total 8.2 g/dL (6.0-8.3); Sodium 131 mmol/L (136-145)
[2022-11-19 05:40] LABS: Glucose 52 mg/dL (70-105)
[2022-11-19 10:46] VITALS: BP 105/55; TEMP 97.5
[2022-11-19] MEDS: Darunavir/Cobicistat [Prezcobix 800 Mg-150 Mg Tablet] PO SCH (11:02)
[2022-11-19] MEDS: DORAVIRINE 100 MG PO SCH (11:02)
[2022-11-19] MEDS: Heparin 5,000 UNITS/ML VIAL SC SCH ×2 (11:03→14:45)
[2022-11-19] MEDS: Calcium Acetate 667 MG CAP PO SCH (11:03)
[2022-11-19] MEDS: Aspirin 81 mg Enteric Coated Tablet PO SCH (11:03)
== END 2022-11-19 15:15 | DRG 974 ==
LOC: ERS 05:47 → CCU 08:49 → 2NO 11-03 14:58
PROVIDERS: ADMIT Family Medicine; ATTEND Internal Medicine
PROC: 06HY33Z Insertion of Infusion Device into Lower Vein, Percutaneous Approach (ICD-10-PCS; 2022-10-31)
PROC: 3E03329 Introduction of Other Anti-infective into Peripheral Vein, Percutaneous Approach (ICD-10-PCS; 2022-10-31)
PROC: 30233J1 Transfusion of Nonautologous Serum Albumin into Peripheral Vein, Percutaneous Approach (ICD-10-PCS; 2022-11-02)
PROC: B246ZZ4 Ultrasonography of Right and Left Heart, Transesophageal (ICD-10-PCS; 2022-11-03)
PROC: 02HV33Z Insertion of Infusion Device into Superior Vena Cava, Percutaneous Approach (ICD-10-PCS; 2022-11-11)
PROC: B548ZZA Ultrasonography of Superior Vena Cava, Guidance (ICD-10-PCS; 2022-11-11)
PROC: 5A1D70Z Performance of Urinary Filtration, Intermittent, Less than 6 Hours Per Day (ICD-10-PCS; principal; 2022-11-18)
DX: A41.02 Sepsis due to Methicillin resistant Staphylococcus aureus (principal); J96.01 Acute respiratory failure with hypoxia; B20 Human immunodeficiency virus [HIV] disease; N18.6 End stage renal disease; R65.21 Severe sepsis with septic shock; I13.2 Hypertensive heart and chronic kidney disease with heart failure and with stage 5 chronic kidney disease, or end stage renal disease; K80.00 Calculus of gallbladder with acute cholecystitis without obstruction; I42.9 Cardiomyopathy, unspecified; I50.22 Chronic systolic (congestive) heart failure; E87.1 Hypo-osmolality and hyponatremia; I25.10 Atherosclerotic heart disease of native coronary artery without angina pectoris; Z20.822 Contact with and (suspected) exposure to COVID-19; D63.1 Anemia in chronic kidney disease; I73.9 Peripheral vascular disease, unspecified; G24.9 Dystonia, unspecified; R19.7 Diarrhea, unspecified; E83.39 Other disorders of phosphorus metabolism; Z99.2 Dependence on renal dialysis; I25.2 Old myocardial infarction; Z95.5 Presence of coronary angioplasty implant and graft; Z98.890 Other specified postprocedural states; Z89.612 Acquired absence of left leg above knee; Z87.891 Personal history of nicotine dependence; Z88.2 Allergy status to sulfonamides; Z88.8 Allergy status to other drugs, medicaments and biological substances; Z95.810 Presence of automatic (implantable) cardiac defibrillator; Z79.899 Other long term (current) drug therapy; Z79.82 Long term (current) use of aspirin
CPT/HCPCS: 36415; 36416; 36556; 71045; 71250; 72141; 72146; 72148; 74177; 76705; 78227; 80053; 80202; 83605; 83735; 83880; 84100; 84145; 84484; 85025; 86361; 87040; 87077; 87149; 87186; 87324; 87449; 87536; 90935; 93306; 93312; 93931; 96361; 96365; 96367; 96372; 96375; A9537; C1751; G0257; J0171; J0712; J1642; J1644; J1815; J1885; J2001; J2250; J2405; J2543; J2704; J2785; J3010; J3370; J3370-JW; J3371; J3490; J7050; J7120; P9047; Q4081; S0020; U0002

== ENCOUNTER 2023-01-08 09:23 | Inpatient (IN) | payer MEDICARE ==
[2023-01-08 09:54] LABS: #Basophils 0.1 thou/uL (0.0-0.2); #Eosinphils 0.7 thou/uL (0.0-0.7); #Monocytes 0.4 thou/uL (0.11-0.59); #Neutrophils 5.3 thou/uL (1.40-6.50); %Basophils 0.8 % (0.0-1.0); %Lymphocytes 11.2 % (21.0-51.0); %Monocytes 5.5 % (0.0-10.0); %Neutrophils 73.1 % (42.0-75.0); Hematocrit 35.8 % (42.0-52.0); Mean Corpuscular HGB CONC 33.5 g/dL (32.0-36.0); Mean Corpuscular Hemoglobin 27.7 pg (27.0-31.0); Mean Corpuscular Volume 82.7 fl (78.0-98.0); Mean Platelet Volume 10.1 fL (7.4-10.4); Platelet Count 193 10x3/uL (130-400); RBC Distribution Width 18.3 % (11.5-14.5); Red Blood Cell (RBC) Count 4.33 mill/uL (4.70-6.10); White Blood Cell (WBC) Count 7.2 10x3/uL (4.8-10.8)
[2023-01-08 10:17] LABS: ALT (SGPT) 13 U/L (8-55); AST (SGOT) 17 U/L (5-34); Alkaline Phosphatase 130 U/L (40-110); Anion Gap 20 mmol/L (10-20); BUN (Urea Nitrogen) 16 mg/dL (8.4-25.7); Calc. Creatinine Clearance 0 mL/min (70-130); Calcium 10.1 mg/dL (7.8-10.44); Carbon Dioxide 25 mmol/L (22-29); Chloride 94 mmol/L (98-107); Estimated GFR 16; Globulin 5.4 g/dL (2.4-3.5); Glucose 67 mg/dL (70-105); Potassium 3.6 mmol/L (3.5-5.1); Protein, Total 9.4 g/dL (6.0-8.3); Sodium 135 mmol/L (136-145)
[2023-01-08] MEDS ORDERED: Piperacillin/Tazobactam 3.375 GM VIAL ONE (10:51)
[2023-01-08] MEDS ORDERED: Sodium Chloride 0.9% 100 ML ONE (10:51)
[2023-01-08] MEDS ORDERED: Acetaminophen 325 MG TAB PO PRN (11:47)
[2023-01-08] MEDS ORDERED: fentaNYL 50 mcg/mL 1 mL Vial SLOW IVP SCH ×2 (12:00→16:00)
[2023-01-08] MEDS ORDERED: Vancomycin 1 GM/200 ML (FROZEN) BAG ONE (12:32)
[2023-01-08] MEDS ORDERED: HYDROcodone/Acetaminophen 5/325 mg Tablet PO SCH (13:30)
[2023-01-08] MEDS ORDERED: HYDROcodone/Acetaminophen 7.5/325 mg Tablet PO SCH (13:45)
[2023-01-08] MEDS: Heparin 5,000 UNITS/ML VIAL SC SCH ×2 (16:44→20:22)
[2023-01-08] MEDS ORDERED: Calcium Carbonate 500 MG ChewTAB PO PRN (16:51)
[2023-01-08 17:01] LABS: Lactic Acid 1.6 mmol/L (0.5-2.2)
[2023-01-08] MEDS ORDERED: Polyethylene Glycol OPTH DROP 15 ML BOT EA EYE PRN (17:25)
[2023-01-08 18:31] VITALS: BMI 23.7
[2023-01-08] MEDS: Gabapentin 100 MG CAP PO SCH (20:21)
[2023-01-08] MEDS: Acetaminophen 500 MG TAB PO SCH (20:21)
[2023-01-08] MEDS: Atorvastatin Calcium 40 MG TAB PO SCH (20:21)
[2023-01-08] MEDS ORDERED: Fentanyl 100 MCG/2 ML VIAL SLOW IVP SCH (21:15)
[2023-01-08] MEDS ORDERED: HYDROcodone/Acetaminophen 10/325 mg Tablet PO SCH (23:30)
[2023-01-09] MEDS ORDERED: Piperacillin/Tazobactam 2.25 GM in Sodium Chloride 0.9% 100 ML IVPB SCH (00:49)
[2023-01-09] MEDS: Piperacillin/Tazobactam 3.375 GM in Sodium Chloride 0.9% 100 ML IVPB SCH ×2 (01:16→12:08)
[2023-01-09] MEDS: Acetaminophen 500 MG TAB PO SCH ×3 (04:16→19:43)
[2023-01-09 05:18] LABS: #Monocytes 1.4 thou/uL (0.11-0.59); #Neutrophils 12.1 thou/uL (1.40-6.50); %Basophils 0.3 % (0.0-1.0); %Eosinophils 0.1 % (0.0-10.0); %Lymphocytes 5.3 % (21.0-51.0); %Monocytes 9.6 % (0.0-10.0); %Neutrophils 82.1 % (42.0-75.0); Hemoglobin 11.5 g/dL (14.0-18.0); Mean Corpuscular HGB CONC 33.8 g/dL (32.0-36.0); Mean Corpuscular Hemoglobin 27.5 pg (27.0-31.0); Mean Corpuscular Volume 81.3 fl (78.0-98.0); Mean Platelet Volume 10.4 fL (7.4-10.4); Platelet Count 146 10x3/uL (130-400); RBC Distribution Width 18.2 % (11.5-14.5); Red Blood Cell (RBC) Count 4.18 mill/uL (4.70-6.10); White Blood Cell (WBC) Count 14.8 10x3/uL (4.8-10.8)
[2023-01-09 05:57] LABS: ALT (SGPT) 8 U/L (8-55); AST (SGOT) 15 U/L (5-34); Albumin 3.6 g/dL (3.5-5.0); Alkaline Phosphatase 112 U/L (40-110); Anion Gap 17 mmol/L (10-20); BUN (Urea Nitrogen) 15 mg/dL (8.4-25.7); Calc. Creatinine Clearance 23 mL/min (70-130); Calcium 9.9 mg/dL (7.8-10.44); Carbon Dioxide 29 mmol/L (22-29); Chloride 93 mmol/L (98-107); Estimated GFR 17; Glucose 69 mg/dL (70-105); Potassium 3.6 mmol/L (3.5-5.1); Protein, Total 8.6 g/dL (6.0-8.3); Sodium 135 mmol/L (136-145)
[2023-01-09] MEDS: Aspirin 81 mg Enteric Coated Tablet PO SCH (09:59)
[2023-01-09] MEDS: Calcium Acetate 667 MG CAP PO SCH (09:59)
[2023-01-09] MEDS: Heparin 5,000 UNITS/ML VIAL SC SCH ×3 (10:06→19:43)
[2023-01-09] MEDS: Atorvastatin Calcium 40 MG TAB PO SCH (19:43)
[2023-01-10] MEDS: Piperacillin/Tazobactam 3.375 GM in Sodium Chloride 0.9% 100 ML IVPB SCH ×2 (00:40→12:12)
[2023-01-10] MEDS ORDERED: Fentanyl 100 MCG/2 ML VIAL SLOW IVP SCH (01:15)
[2023-01-10] MEDS: Acetaminophen 500 MG TAB PO SCH ×3 (04:42→20:05)
[2023-01-10 05:27] LABS: #Basophils 0.1 thou/uL (0.0-0.2); #Eosinphils 0.6 thou/uL (0.0-0.7); #Monocytes 1.4 thou/uL (0.11-0.59); #Neutrophils 9.4 thou/uL (1.40-6.50); %Basophils 0.6 % (0.0-1.0); %Eosinophils 4.9 % (0.0-10.0); %Lymphocytes 6.9 % (21.0-51.0); %Monocytes 11.4 % (0.0-10.0); %Neutrophils 75.6 % (42.0-75.0); Hemoglobin 10.9 g/dL (14.0-18.0); Mean Corpuscular HGB CONC 35.2 g/dL (32.0-36.0); Mean Corpuscular Hemoglobin 28.5 pg (27.0-31.0); Mean Corpuscular Volume 81.2 fl (78.0-98.0); Mean Platelet Volume 11.2 fL (7.4-10.4); Platelet Count 144 10x3/uL (130-400); RBC Distribution Width 17.5 % (11.5-14.5); Red Blood Cell (RBC) Count 3.82 mill/uL (4.70-6.10); White Blood Cell (WBC) Count 12.4 10x3/uL (4.8-10.8)
[2023-01-10 05:53] LABS: ALT (SGPT) 9 U/L (8-55); AST (SGOT) 13 U/L (5-34); Albumin 2.8 g/dL (3.5-5.0); Alkaline Phosphatase 97 U/L (40-110); Anion Gap 18 mmol/L (10-20); BUN (Urea Nitrogen) 31 mg/dL (8.4-25.7); Bilirubin, Total 0.7 mg/dL (0.2-1.2); Calc. Creatinine Clearance 17 mL/min (70-130); Calcium 8.7 mg/dL (7.8-10.44); Carbon Dioxide 27 mmol/L (22-29); Chloride 93 mmol/L (98-107); Estimated GFR 12; Globulin 4.4 g/dL (2.4-3.5); Glucose 95 mg/dL (70-105); Potassium 3.6 mmol/L (3.5-5.1); Protein, Total 7.2 g/dL (6.0-8.3); Sodium 134 mmol/L (136-145)
[2023-01-10] MEDS: Aspirin 81 mg Enteric Coated Tablet PO SCH (09:27)
[2023-01-10] MEDS: Heparin 5,000 UNITS/ML VIAL SC SCH ×3 (09:27→20:05)
[2023-01-10] MEDS: Calcium Acetate 667 MG CAP PO SCH (09:27)
[2023-01-10] MEDS: Atorvastatin Calcium 40 MG TAB PO SCH (20:05)
[2023-01-10] MEDS: Carvedilol 6.25 MG TAB PO SCH (20:06)
[2023-01-11] MEDS: Piperacillin/Tazobactam 3.375 GM in Sodium Chloride 0.9% 100 ML IVPB SCH ×3 (00:55→13:00)
[2023-01-11] MEDS: Acetaminophen 500 MG TAB PO SCH ×3 (04:17→20:07)
[2023-01-11 05:23] LABS: #Basophils 0.1 thou/uL (0.0-0.2); #Neutrophils 7.6 thou/uL (1.40-6.50); %Basophils 0.7 % (0.0-1.0); %Eosinophils 9.5 % (0.0-10.0); %Lymphocytes 7.2 % (21.0-51.0); %Monocytes 9.3 % (0.0-10.0); %Neutrophils 72.7 % (42.0-75.0); Hematocrit 29.8 % (42.0-52.0); Hemoglobin 10.4 g/dL (14.0-18.0); Mean Corpuscular HGB CONC 34.9 g/dL (32.0-36.0); Mean Corpuscular Hemoglobin 27.6 pg (27.0-31.0); Mean Platelet Volume 10.6 fL (7.4-10.4); Platelet Count 122 10x3/uL (130-400); RBC Distribution Width 17.2 % (11.5-14.5); Red Blood Cell (RBC) Count 3.77 mill/uL (4.70-6.10); White Blood Cell (WBC) Count 10.4 10x3/uL (4.8-10.8)
[2023-01-11 05:47] LABS: ALT (SGPT) 8 U/L (8-55); AST (SGOT) 11 U/L (5-34); Alkaline Phosphatase 96 U/L (40-110); Anion Gap 15 mmol/L (10-20); BUN (Urea Nitrogen) 40 mg/dL (8.4-25.7); Bilirubin, Total 0.5 mg/dL (0.2-1.2); Calc. Creatinine Clearance 14 mL/min (70-130); Calcium 9.1 mg/dL (7.8-10.44); Carbon Dioxide 27 mmol/L (22-29); Chloride 92 mmol/L (98-107); Estimated GFR 10; Globulin 4.6 g/dL (2.4-3.5); Glucose 103 mg/dL (70-105); Potassium 3.8 mmol/L (3.5-5.1); Protein, Total 7.6 g/dL (6.0-8.3); Sodium 130 mmol/L (136-145)
[2023-01-11] MEDS ORDERED: Heparin 10,000 UNITS/ 10 ML VIAL ONE (08:28)
[2023-01-11] MEDS ORDERED: Epoetin (ESRD) 10,000 UNITS/ML VIAL IVP SCH (09:00)
[2023-01-11] MEDS: Calcitriol 0.25 MCG CAP PO SCH (09:57)
[2023-01-11] MEDS: Calcium Acetate 667 MG CAP PO SCH (09:57)
[2023-01-11] MEDS: Amlodipine 10 MG TAB PO SCH (09:57)
[2023-01-11] MEDS: Heparin 5,000 UNITS/ML VIAL SC SCH ×3 (09:57→20:08)
[2023-01-11] MEDS: Aspirin 81 mg Enteric Coated Tablet PO SCH (09:57)
[2023-01-11] MEDS: Carvedilol 6.25 MG TAB PO SCH ×2 (09:58→20:11)
[2023-01-11] MEDS ORDERED: FLU VACC QS2023-24(6MOS UP)/PF 60 MCG/0.5 ML SYRINGE IM ONE (19:00)
[2023-01-11] MEDS: Gabapentin 100 MG CAP PO SCH (20:08)
[2023-01-11] MEDS: Atorvastatin Calcium 40 MG TAB PO SCH (20:09)
[2023-01-12] MEDS: Piperacillin/Tazobactam 3.375 GM in Sodium Chloride 0.9% 100 ML IVPB SCH ×2 (00:43→14:17)
[2023-01-12] MEDS: DORAVIRINE 100 MG PO SCH ×2 (02:33→10:18)
[2023-01-12] MEDS: Darunavir/Cobicistat [Prezcobix 800 Mg-150 Mg Tablet] PO SCH ×2 (02:33→10:18)
[2023-01-12] MEDS: Acetaminophen 500 MG TAB PO SCH ×3 (04:23→17:32)
[2023-01-12 05:18] LABS: #Basophils 0.1 thou/uL (0.0-0.2); #Monocytes 0.8 thou/uL (0.11-0.59); #Neutrophils 5.4 thou/uL (1.40-6.50); %Basophils 1.1 % (0.0-1.0); %Eosinophils 12.3 % (0.0-10.0); %Lymphocytes 9.5 % (21.0-51.0); %Monocytes 10.1 % (0.0-10.0); %Neutrophils 66.6 % (42.0-75.0); Hematocrit 28.5 % (42.0-52.0); Hemoglobin 9.9 g/dL (14.0-18.0); Mean Corpuscular HGB CONC 34.7 g/dL (32.0-36.0); Mean Corpuscular Hemoglobin 28.1 pg (27.0-31.0); Mean Platelet Volume 10.5 fL (7.4-10.4); Platelet Count 130 10x3/uL (130-400); RBC Distribution Width 17.5 % (11.5-14.5); Red Blood Cell (RBC) Count 3.52 mill/uL (4.70-6.10); White Blood Cell (WBC) Count 8.1 10x3/uL (4.8-10.8)
[2023-01-12 05:51] LABS: ALT (SGPT) 7 U/L (8-55); AST (SGOT) 18 U/L (5-34); Albumin 3.2 g/dL (3.5-5.0); Alkaline Phosphatase 138 U/L (40-110); Anion Gap 16 mmol/L (10-20); BUN (Urea Nitrogen) 22 mg/dL (8.4-25.7); Bilirubin, Total 0.5 mg/dL (0.2-1.2); Calc. Creatinine Clearance 19 mL/min (70-130); Calcium 9.1 mg/dL (7.8-10.44); Carbon Dioxide 24 mmol/L (22-29); Chloride 96 mmol/L (98-107); Estimated GFR 15; Glucose 84 mg/dL (70-105); Potassium 4.4 mmol/L (3.5-5.1); Protein, Total 8.2 g/dL (6.0-8.3); Sodium 132 mmol/L (136-145)
[2023-01-12] MEDS: Carvedilol 6.25 MG TAB PO SCH ×2 (08:14→21:10)
[2023-01-12] MEDS ORDERED: Heparin 5,000 UNITS/ML VIAL ONE (08:44)
[2023-01-12] MEDS ORDERED: EPINEPHrine 1 MG/ML AMP ONE (08:44)
[2023-01-12] MEDS ORDERED: Bupivacaine PF 0.5% 30 ML VIAL ONE (08:44)
[2023-01-12] MEDS ORDERED: Protamine Sulfate 50 MG/5 ML VIAL ONE ×2 (08:44→09:33)
[2023-01-12] MEDS ORDERED: Glycopyrrolate 0.2 MG/ML 5 ML SYRINGE ONE (09:08)
[2023-01-12] MEDS ORDERED: Rocuronium Bromide 10 MG/ML (10ML VIAL) ONE (09:08)
[2023-01-12] MEDS ORDERED: NEOSTIGMINE 3 MG/3 ML SYR 3 MG/3 ML SYRINGE ONE (09:08)
[2023-01-12] MEDS ORDERED: Lidocaine 2% PF 5 ML VIAL ONE (09:21)
[2023-01-12] MEDS ORDERED: Vasopressin 20 UNITS/ML VIAL ONE (09:25)
[2023-01-12] MEDS ORDERED: fentaNYL PF 100 MCG/2 ML SYRINGE ONE (09:25)
[2023-01-12] MEDS ORDERED: Norepinephrine 4 MG/4 ML VIAL ONE (09:25)
[2023-01-12] MEDS ORDERED: fentaNYL 50 mcg/mL 1 mL Vial ONE (09:32)
[2023-01-12] MEDS ORDERED: Piperacillin/Tazobactam 3.375 GM VIAL ONE (09:36)
[2023-01-12] MEDS ORDERED: Sodium Chloride 0.9% 100 ML ONE (09:36)
[2023-01-12] MEDS: Aspirin 81 mg Enteric Coated Tablet PO SCH (10:17)
[2023-01-12] MEDS: Calcitriol 0.25 MCG CAP PO SCH (10:17)
[2023-01-12] MEDS: Amlodipine 10 MG TAB PO SCH (10:17)
[2023-01-12] MEDS: Calcium Acetate 667 MG CAP PO SCH (10:18)
[2023-01-12] MEDS ORDERED: HYDROcodone/Acetaminophen 10/325 mg Tablet PO PRN (12:13)
[2023-01-12] MEDS ORDERED: HYDROmorphone 2 MG/ML VIAL SLOW IVP PRN (12:30)
[2023-01-12] MEDS ORDERED: Ondansetron HCl/PF 4 MG/2 ML Vial IVP PRN (12:30)
[2023-01-12] MEDS ORDERED: Promethazine HCl 25 MG/ML VIAL IM PRN (19:14)
[2023-01-12] MEDS ORDERED: diphenhydrAMINE 50 MG/ML VIAL IVP PRN (19:14)
[2023-01-12] MEDS ORDERED: Naloxone HCl 0.4 mg/ml Vial IV PRN (19:14)
[2023-01-12] MEDS ORDERED: diphenhydrAMINE 25 MG CAP PO PRN (19:14)
[2023-01-12] MEDS ORDERED: diphenhydrAMINE 50 MG/ML VIAL IM PRN (19:14)
[2023-01-12] MEDS ORDERED: Ondansetron PF 4 MG/2 ML Vial IVP PRN (19:14)
[2023-01-12] MEDS ORDERED: Communication Order-Pharmacy FS SCH (19:15)
[2023-01-12] MEDS: FENTANYL 500 MCG/10 ML VIAL 2,000 MCG in Sodium Chloride 0.9% 60 ML IV PRN (21:05)
[2023-01-12] MEDS: Atorvastatin Calcium 40 MG TAB PO SCH (21:10)
[2023-01-13] MEDS: Piperacillin/Tazobactam 3.375 GM in Sodium Chloride 0.9% 100 ML IVPB SCH ×2 (01:03→14:54)
[2023-01-13 04:55] LABS: #Basophils 0.1 thou/uL (0.0-0.2); #Eosinphils 0.9 thou/uL (0.0-0.7); #Monocytes 1.1 thou/uL (0.11-0.59); #Neutrophils 5.6 thou/uL (1.40-6.50); %Basophils 1.3 % (0.0-1.0); %Lymphocytes 10.9 % (21.0-51.0); %Monocytes 12.7 % (0.0-10.0); %Neutrophils 64.9 % (42.0-75.0); Hematocrit 27.7 % (42.0-52.0); Hemoglobin 9.4 g/dL (14.0-18.0); Mean Corpuscular HGB CONC 33.9 g/dL (32.0-36.0); Mean Corpuscular Hemoglobin 27.1 pg (27.0-31.0); Mean Corpuscular Volume 79.8 fl (78.0-98.0); Mean Platelet Volume 10.8 fL (7.4-10.4); Platelet Count 144 10x3/uL (130-400); RBC Distribution Width 17.9 % (11.5-14.5); Red Blood Cell (RBC) Count 3.47 mill/uL (4.70-6.10); White Blood Cell (WBC) Count 8.6 10x3/uL (4.8-10.8)
[2023-01-13] MEDS: Acetaminophen 500 MG TAB PO SCH ×3 (05:18→19:24)
[2023-01-13 05:25] LABS: ALT (SGPT) 8 U/L (8-55); AST (SGOT) 13 U/L (5-34); Albumin 2.9 g/dL (3.5-5.0); Alkaline Phosphatase 139 U/L (40-110); Anion Gap 17 mmol/L (10-20); BUN (Urea Nitrogen) 30 mg/dL (8.4-25.7); Bilirubin, Total 0.7 mg/dL (0.2-1.2); Calc. Creatinine Clearance 15 mL/min (70-130); Calcium 9.2 mg/dL (7.8-10.44); Carbon Dioxide 24 mmol/L (22-29); Chloride 96 mmol/L (98-107); Estimated GFR 11; Globulin 4.9 g/dL (2.4-3.5); Glucose 56 mg/dL (70-105); Potassium 4.1 mmol/L (3.5-5.1); Protein, Total 7.8 g/dL (6.0-8.3); Sodium 133 mmol/L (136-145)
[2023-01-13] MEDS: Calcium Acetate 667 MG CAP PO SCH (08:38)
[2023-01-13] MEDS: Carvedilol 6.25 MG TAB PO SCH ×2 (08:38→21:16)
[2023-01-13] MEDS: Aspirin 81 mg Enteric Coated Tablet PO SCH (08:38)
[2023-01-13] MEDS: Calcitriol 0.25 MCG CAP PO SCH (08:38)
[2023-01-13] MEDS: Amlodipine 10 MG TAB PO SCH (08:38)
[2023-01-13] MEDS: DORAVIRINE 100 MG PO SCH (08:39)
[2023-01-13] MEDS: Darunavir/Cobicistat [Prezcobix 800 Mg-150 Mg Tablet] PO SCH (08:39)
[2023-01-13] MEDS ORDERED: Heparin 10,000 UNITS/ 10 ML VIAL ONE (15:42)
[2023-01-13] MEDS: Gabapentin 100 MG CAP PO SCH (21:16)
[2023-01-13] MEDS: Atorvastatin Calcium 40 MG TAB PO SCH (21:16)
[2023-01-13] MEDS: FENTANYL 500 MCG/10 ML VIAL 2,000 MCG in Sodium Chloride 0.9% 60 ML IV PRN (21:19)
[2023-01-14] MEDS: Piperacillin/Tazobactam 3.375 GM in Sodium Chloride 0.9% 100 ML IVPB SCH ×2 (00:04→13:19)
[2023-01-14] MEDS: Acetaminophen 500 MG TAB PO SCH ×3 (04:16→18:09)
[2023-01-14 05:44] LABS: #Basophils 0.1 thou/uL (0.0-0.2); #Eosinphils 0.5 thou/uL (0.0-0.7); #Monocytes 1.1 thou/uL (0.11-0.59); #Neutrophils 5.6 thou/uL (1.40-6.50); %Basophils 0.9 % (0.0-1.0); %Eosinophils 6.6 % (0.0-10.0); %Lymphocytes 10.2 % (21.0-51.0); %Monocytes 12.9 % (0.0-10.0); %Neutrophils 68.9 % (42.0-75.0); Hematocrit 26.6 % (42.0-52.0); Hemoglobin 9.1 g/dL (14.0-18.0); Mean Corpuscular HGB CONC 34.2 g/dL (32.0-36.0); Mean Corpuscular Hemoglobin 27.7 pg (27.0-31.0); Mean Corpuscular Volume 80.9 fl (78.0-98.0); Mean Platelet Volume 10.9 fL (7.4-10.4); Platelet Count 153 10x3/uL (130-400); RBC Distribution Width 17.5 % (11.5-14.5); Red Blood Cell (RBC) Count 3.29 mill/uL (4.70-6.10); White Blood Cell (WBC) Count 8.1 10x3/uL (4.8-10.8)
[2023-01-14 06:08] LABS: ALT (SGPT) Less than 7 U/L (8-55); AST (SGOT) 11 U/L (5-34); Alkaline Phosphatase 140 U/L (40-110); Anion Gap 12 mmol/L (10-20); BUN (Urea Nitrogen) 18 mg/dL (8.4-25.7); Bilirubin, Total 0.6 mg/dL (0.2-1.2); Calc. Creatinine Clearance 20 mL/min (70-130); Calcium 9.6 mg/dL (7.8-10.44); Carbon Dioxide 31 mmol/L (22-29); Chloride 94 mmol/L (98-107); Estimated GFR 15; Globulin 4.7 g/dL (2.4-3.5); Glucose 93 mg/dL (70-105); Potassium 3.6 mmol/L (3.5-5.1); Protein, Total 7.7 g/dL (6.0-8.3); Sodium 133 mmol/L (136-145)
[2023-01-14] MEDS: Carvedilol 6.25 MG TAB PO SCH ×2 (09:21→21:38)
[2023-01-14] MEDS: Calcium Acetate 667 MG CAP PO SCH (09:21)
[2023-01-14] MEDS: Calcitriol 0.25 MCG CAP PO SCH (09:21)
[2023-01-14] MEDS: Aspirin 81 mg Enteric Coated Tablet PO SCH (09:21)
[2023-01-14] MEDS: Darunavir/Cobicistat [Prezcobix 800 Mg-150 Mg Tablet] PO SCH (09:22)
[2023-01-14] MEDS: DORAVIRINE 100 MG PO SCH (09:22)
[2023-01-14] MEDS: Ferric Citrate [Auryxia] 210 MG Tablet PO SCH ×3 (12:56→15:14)
[2023-01-14] MEDS ORDERED: Lactated Ringer's 250 ML IV SCH ×2 (16:15→18:30)
[2023-01-14] MEDS: Atorvastatin Calcium 40 MG TAB PO SCH (21:34)
[2023-01-15] MEDS: HYDROcodone/Acetaminophen 10/325 mg Tablet PO PRN ×4 (00:35→17:04)
[2023-01-15] MEDS: Piperacillin/Tazobactam 3.375 GM in Sodium Chloride 0.9% 100 ML IVPB SCH ×2 (00:36→17:05)
[2023-01-15] MEDS: Acetaminophen 500 MG TAB PO SCH ×3 (05:29→20:20)
[2023-01-15 05:50] LABS: #Neutrophils 4.9 thou/uL (1.40-6.50); %Basophils 0.5 % (0.0-1.0); %Eosinophils 13.1 % (0.0-10.0); %Lymphocytes 10.8 % (21.0-51.0); %Monocytes 12.8 % (0.0-10.0); %Neutrophils 62.2 % (42.0-75.0); Hematocrit 25.7 % (42.0-52.0); Hemoglobin 8.9 g/dL (14.0-18.0); Mean Corpuscular HGB CONC 34.6 g/dL (32.0-36.0); Mean Corpuscular Hemoglobin 27.7 pg (27.0-31.0); Mean Corpuscular Volume 80.1 fl (78.0-98.0); Mean Platelet Volume 10.1 fL (7.4-10.4); Platelet Count 145 10x3/uL (130-400); RBC Distribution Width 17.3 % (11.5-14.5); Red Blood Cell (RBC) Count 3.21 mill/uL (4.70-6.10); White Blood Cell (WBC) Count 7.8 10x3/uL (4.8-10.8)
[2023-01-15 06:14] LABS: ALT (SGPT) 7 U/L (8-55); AST (SGOT) 13 U/L (5-34); Albumin 2.7 g/dL (3.5-5.0); Alkaline Phosphatase 144 U/L (40-110); Anion Gap 14 mmol/L (10-20); BUN (Urea Nitrogen) 24 mg/dL (8.4-25.7); Bilirubin, Total 0.6 mg/dL (0.2-1.2); Calc. Creatinine Clearance 16 mL/min (70-130); Calcium 9.1 mg/dL (7.8-10.44); Carbon Dioxide 26 mmol/L (22-29); Chloride 95 mmol/L (98-107); Estimated GFR 11; Globulin 4.7 g/dL (2.4-3.5); Glucose 111 mg/dL (70-105); Potassium 3.9 mmol/L (3.5-5.1); Protein, Total 7.4 g/dL (6.0-8.3); Sodium 131 mmol/L (136-145)
[2023-01-15] MEDS: Carvedilol 6.25 MG TAB PO SCH ×2 (09:47→20:21)
[2023-01-15] MEDS: Polyethylene Glycol 3350 17 GM Packet PO SCH (17:03)
[2023-01-15] MEDS: Calcium Acetate 667 MG CAP PO SCH (17:04)
[2023-01-15] MEDS: Aspirin 81 mg Enteric Coated Tablet PO SCH (17:04)
[2023-01-15] MEDS: Calcitriol 0.25 MCG CAP PO SCH (17:04)
[2023-01-15] MEDS: DORAVIRINE 100 MG PO SCH (17:42)
[2023-01-15] MEDS: Darunavir/Cobicistat [Prezcobix 800 Mg-150 Mg Tablet] PO SCH (17:42)
[2023-01-15] MEDS: Atorvastatin Calcium 40 MG TAB PO SCH (20:20)
[2023-01-15] MEDS: Gabapentin 100 MG CAP PO SCH (20:20)
[2023-01-15] MEDS: Heparin 5,000 UNITS/ML VIAL SC SCH (20:20)
[2023-01-16] MEDS: HYDROcodone/Acetaminophen 10/325 mg Tablet PO PRN ×3 (00:45→17:58)
[2023-01-16] MEDS: Acetaminophen 500 MG TAB PO SCH ×3 (04:57→20:50)
[2023-01-16] MEDS ORDERED: Piperacillin/Tazobactam 3.375 GM in Sodium Chloride 0.9% 100 ML IVPB SCH (05:00)
[2023-01-16 05:41] LABS: #Basophils 0.1 thou/uL (0.0-0.2); #Neutrophils 5.5 thou/uL (1.40-6.50); %Basophils 0.6 % (0.0-1.0); %Eosinophils 12.2 % (0.0-10.0); %Lymphocytes 9.1 % (21.0-51.0); %Monocytes 12.2 % (0.0-10.0); %Neutrophils 65.7 % (42.0-75.0); Hematocrit 26.6 % (42.0-52.0); Hemoglobin 9.1 g/dL (14.0-18.0); Mean Corpuscular HGB CONC 34.2 g/dL (32.0-36.0); Mean Corpuscular Hemoglobin 27.2 pg (27.0-31.0); Mean Corpuscular Volume 79.6 fl (78.0-98.0); Platelet Count 168 10x3/uL (130-400); RBC Distribution Width 17.3 % (11.5-14.5); Red Blood Cell (RBC) Count 3.34 mill/uL (4.70-6.10); White Blood Cell (WBC) Count 8.4 10x3/uL (4.8-10.8)
[2023-01-16 06:06] LABS: ALT (SGPT) 8 U/L (8-55); AST (SGOT) 14 U/L (5-34); Albumin 2.8 g/dL (3.5-5.0); Alkaline Phosphatase 135 U/L (40-110); Anion Gap 14 mmol/L (10-20); BUN (Urea Nitrogen) 14 mg/dL (8.4-25.7); Bilirubin, Total 0.6 mg/dL (0.2-1.2); Calc. Creatinine Clearance 23 mL/min (70-130); Calcium 8.9 mg/dL (7.8-10.44); Carbon Dioxide 28 mmol/L (22-29); Chloride 95 mmol/L (98-107); Estimated GFR 17; Globulin 4.9 g/dL (2.4-3.5); Glucose 95 mg/dL (70-105); Potassium 3.4 mmol/L (3.5-5.1); Protein, Total 7.7 g/dL (6.0-8.3); Sodium 134 mmol/L (136-145)
[2023-01-16] MEDS: Potassium Chloride 20 MEQ TAB PO SCH (08:44)
[2023-01-16] MEDS: Aspirin 81 mg Enteric Coated Tablet PO SCH (08:44)
[2023-01-16] MEDS: Calcitriol 0.25 MCG CAP PO SCH (08:44)
[2023-01-16] MEDS: Calcium Acetate 667 MG CAP PO SCH (08:44)
[2023-01-16] MEDS: Polyethylene Glycol 3350 17 GM Packet PO SCH (08:44)
[2023-01-16] MEDS: Carvedilol 6.25 MG TAB PO SCH ×2 (08:45→20:50)
[2023-01-16] MEDS: Darunavir/Cobicistat [Prezcobix 800 Mg-150 Mg Tablet] PO SCH (08:45)
[2023-01-16] MEDS: Heparin 5,000 UNITS/ML VIAL SC SCH ×3 (08:45→20:50)
[2023-01-16] MEDS: DORAVIRINE 100 MG PO SCH (08:46)
[2023-01-16] MEDS ORDERED: Lidocaine 1% w/Epinephrine 1:100K 20 ML VIAL ONE (12:27)
[2023-01-16] MEDS: Atorvastatin Calcium 40 MG TAB PO SCH (20:49)
[2023-01-17] MEDS: HYDROcodone/Acetaminophen 10/325 mg Tablet PO PRN ×2 (02:21→06:49)
[2023-01-17] MEDS: Acetaminophen 500 MG TAB PO SCH ×2 (04:44→08:49)
[2023-01-17 07:02] LABS: #Basophils 0.1 thou/uL (0.0-0.2); #Monocytes 0.9 thou/uL (0.11-0.59); #Neutrophils 8.8 thou/uL (1.40-6.50); %Basophils 0.6 % (0.0-1.0); %Eosinophils 8.5 % (0.0-10.0); %Lymphocytes 7.6 % (21.0-51.0); %Neutrophils 74.7 % (42.0-75.0); Hematocrit 26.9 % (42.0-52.0); Hemoglobin 9.2 g/dL (14.0-18.0); Mean Corpuscular HGB CONC 34.2 g/dL (32.0-36.0); Mean Corpuscular Hemoglobin 27.5 pg (27.0-31.0); Mean Corpuscular Volume 80.3 fl (78.0-98.0); Mean Platelet Volume 9.6 fL (7.4-10.4); Platelet Count 187 10x3/uL (130-400); RBC Distribution Width 17.6 % (11.5-14.5); Red Blood Cell (RBC) Count 3.35 mill/uL (4.70-6.10); White Blood Cell (WBC) Count 11.8 10x3/uL (4.8-10.8)
[2023-01-17 07:24] LABS: ALT (SGPT) 9 U/L (8-55); AST (SGOT) 13 U/L (5-34); Alkaline Phosphatase 133 U/L (40-110); Anion Gap 16 mmol/L (10-20); BUN (Urea Nitrogen) 23 mg/dL (8.4-25.7); Bilirubin, Total 0.7 mg/dL (0.2-1.2); Calc. Creatinine Clearance 17 mL/min (70-130); Calcium 9.5 mg/dL (7.8-10.44); Carbon Dioxide 27 mmol/L (22-29); Chloride 94 mmol/L (98-107); Estimated GFR 12; Globulin 5.2 g/dL (2.4-3.5); Glucose 94 mg/dL (70-105); Potassium 4.1 mmol/L (3.5-5.1); Protein, Total 8.2 g/dL (6.0-8.3); Sodium 133 mmol/L (136-145)
[2023-01-17 07:45] VITALS: TEMP 97.9
[2023-01-17] MEDS: Heparin 5,000 UNITS/ML VIAL SC SCH (08:50)
[2023-01-17] MEDS: Calcium Acetate 667 MG CAP PO SCH (08:50)
[2023-01-17] MEDS: Calcitriol 0.25 MCG CAP PO SCH (08:50)
[2023-01-17] MEDS: Aspirin 81 mg Enteric Coated Tablet PO SCH (08:51)
[2023-01-17] MEDS: Potassium Chloride 20 MEQ TAB PO SCH (08:51)
[2023-01-17] MEDS: Polyethylene Glycol 3350 17 GM Packet PO SCH (08:51)
[2023-01-17] MEDS: Carvedilol 6.25 MG TAB PO SCH (08:51)
[2023-01-17] MEDS: DORAVIRINE 100 MG PO SCH (08:52)
[2023-01-17] MEDS: Darunavir/Cobicistat [Prezcobix 800 Mg-150 Mg Tablet] PO SCH (08:52)
[2023-01-17 11:39] VITALS: BP 124/56
== END 2023-01-17 14:45 | disposition home or self-care (01) | DRG 853 ==
LOC: ERS 09:23 → SURG A 10:49
PROVIDERS: ADMIT Emergency Medicine; ATTEND Emergency Medicine
PROC: 5A1D70Z Performance of Urinary Filtration, Intermittent, Less than 6 Hours Per Day (ICD-10-PCS; 2023-01-08)
PROC: 5A1D70Z Performance of Urinary Filtration, Intermittent, Less than 6 Hours Per Day (ICD-10-PCS; 2023-01-11)
PROC: 04CK0ZZ Extirpation of Matter from Right Femoral Artery, Open Approach (ICD-10-PCS; principal; 2023-01-12)
PROC: 04UK0KZ Supplement Right Femoral Artery with Nonautologous Tissue Substitute, Open Approach (ICD-10-PCS; 2023-01-12)
PROC: 05PYX3Z Removal of Infusion Device from Upper Vein, External Approach (ICD-10-PCS; 2023-01-16)
DX: A41.9 Sepsis, unspecified organism (principal); J96.01 Acute respiratory failure with hypoxia; N18.6 End stage renal disease; I13.2 Hypertensive heart and chronic kidney disease with heart failure and with stage 5 chronic kidney disease, or end stage renal disease; I50.22 Chronic systolic (congestive) heart failure; N25.81 Secondary hyperparathyroidism of renal origin; E87.1 Hypo-osmolality and hyponatremia; L97.519 Non-pressure chronic ulcer of other part of right foot with unspecified severity; I48.91 Unspecified atrial fibrillation; I25.10 Atherosclerotic heart disease of native coronary artery without angina pectoris; E87.70 Fluid overload, unspecified; E83.39 Other disorders of phosphorus metabolism; Z21 Asymptomatic human immunodeficiency virus [HIV] infection status; I70.238 Atherosclerosis of native arteries of right leg with ulceration of other part of lower leg; D63.1 Anemia in chronic kidney disease; I70.221 Atherosclerosis of native arteries of extremities with rest pain, right leg; Z88.8 Allergy status to other drugs, medicaments and biological substances; Z88.2 Allergy status to sulfonamides; Z89.612 Acquired absence of left leg above knee; Z79.82 Long term (current) use of aspirin; Z95.1 Presence of aortocoronary bypass graft; Z79.899 Other long term (current) drug therapy; Z99.2 Dependence on renal dialysis
CPT/HCPCS: 36415; 36416; 71045; 80053; 83605; 83880; 83970; 84100; 85025; 86850; 86900; 86901; 86922; 87040; 87077; 87149; 87186; 90935; 96365; 96366; 96375; 97139; C1768; G0257; J0171; J1642; J1644; J2001; J2543; J2720; J3010; J3370-JW; J3490; J7120; S0020